=== PATIENT | female | born 1960 | race Hispanic/Latino ===

== ENCOUNTER 2017-08-08 14:36 | Observation (INO) | payer OTHER ==
[~2017-08-08] VITALS: Ht 149.9 cm; Wt 81.6 kg
[~2017-08-08 14:36] MED LIST: AMBIEN10 MG; AMLODIPINE BESYL5 MG PO; ASPIR 8181 MG PO; BP MED; CITALOPRAM HBR20 MG PO; GLIMEPIRIDE2 MG; HYDROCHLOROTHIA25 MG PO; IBUPROFEN800 MG PO; LANTUS 3ML100 UNITS/; LANTUS 3ML100 UNITS/ SQ; LEXAPRO10 MG PO; LISINOPRIL20 MG; LOVASTATIN40 MG PO; LYRICA75 MG PO; METFORMIN; METFORMIN HCL500 MG; METOCLOPRAMIDE10 MG PO; MONTELUKAST SOD10 MG PO; NEXIUM40 MG; ONGLYZA5 MG PO; QUETIAPINE FUM100 MG PO; TOPIRAMATE50 MG PO; TRAZODONE HCL100 MG PO; ULTRAM50 MG PO; Z.0.CIPROFLOXACIN500 PO; Z.0.LISINOPRIL10 MG PO; Z.0.PRAVASTATIN SOD8 PO; Z.0.TRAZODONE HCL100 PO; Z.1.METFORMIN HCL100 PO
[2017-08-08] MEDS ORDERED: ONDANSETRON HCL INJ 2 MG/ML VIAL IV STA (19:41)
--- NOTE | 2017-08-08 19:43 | Diagnostic Imaging Report ---
EXAMINATION: CHEST SINGLE (NOT PORTABLE) 08/08/2017 6:28 PM COMPARISON: None INDICATION: Foreign body stuck in throat DISCUSSION: LINES: None. LUNGS: The lungs are well inflated and clear. No pneumonia or pulmonary edema. PLEURA: No pleural effusion or pneumothorax. HEART AND MEDIASTINUM: The cardiomediastinal silhouette is unremarkable. BONES AND SOFT TISSUES: No acute osseous lesion. There are postsurgical changes at the gastroesophageal junction. IMPRESSION: Postsurgical changes of the gastroesophageal junction. No radiopaque foreign bodies are identified. Héctor Velasquez MD Signed by: Dr. Héctor Velasquez M.D. on 08/08/2017 7:39 PM
[2017-08-08] MEDS ORDERED: GLUCAGON FOR INJ 1 MG VIAL IV ONE (19:45)
[2017-08-08] MEDS ORDERED: SODIUM CHLORIDE 0.9% 1000ML 1,000 ML IV ONE (20:00)
--- NOTE | 2017-08-08 20:01 | Diagnostic Imaging Report ---
EXAMINATION: NECK SOFT TISSUE 08/08/2017 6:28 PM COMPARISON: None INDICATION: Food stuck in throat DISCUSSION: 2 views of the soft tissues of the neck (AP and lateral) See impression IMPRESSION: No radiopaque foreign body in the soft tissues of the neck. Héctor Velasquez MD Signed by: Dr. Héctor Velasquez M.D. on 08/08/2017 7:57 PM
[2017-08-08 20:47] LABS: BASOPHILS # (AUTO) 0.1 (0.0-0.1); BASOPHILS % 0.3 % (0.0-1.0); EOSINOPHILS # (AUTO) 0.3 (0.0-0.4); EOSINOPHILS % 1.6 % (0.0-6.0); HEMATOCRIT 34.9 % (34.2-44.1); HEMOGLOBIN 10.3 g/dL (12.0-16.0); LYMPHOCYTES # (AUTO) 4.1 (1.0-3.2); LYMPHOCYTES % 26.2 % (18.0-39.1); MEAN CORPUSCULAR HEMOGLOBIN 21.8 pg (28-32); MEAN CORPUSCULAR HGB CONC 29.5 g/dL (31-35); MEAN CORPUSCULAR VOLUME 73.9 fL (81-99); MONOCYTES # (AUTO) 0.8 (0.2-0.8); MONOCYTES % 4.9 % (4.4-11.3); NEUTROPHILS # (AUTO) 10.5 (2.1-6.9); NEUTROPHILS % 66.4 % (38.7-80.0); PLATELET COUNT 469 x10e3/uL (140-360); RED BLOOD COUNT 4.72 x10e6/uL (3.6-5.1); RED CELL DISTRIBUTION WIDTH 16.8 % (11.7-14.4)
[2017-08-08] MEDS ORDERED: ACETAMINOPHEN 1000 MG/100 ML IV STA (21:04)
[2017-08-08 21:05] LABS: INR 0.86; PARTIAL THROMBOPLASTIN TIME 27.9 seconds (23.8-35.5); PROTHROMBIN TIME 12.1 seconds (11.9-14.5)
--- NOTE | 2017-08-08 21:08 | Diagnostic Imaging Report ---
EXAM: CT CHEST WO DATE: 08/08/2017 7:41 PM Time stamp on exam: 2033 hours INDICATION: Foreign body in chest, previous gastric banding/ring, food bolus lodged in esophagus COMPARISON: Soft tissue neck x-ray August 08, 2017 TECHNIQUE: Multidetector CT scanning of the chest was performed. Coronal and sagittal multiplanar reformations were obtained. Routine protocol performed. IV Contrast: None CTDIvol has been reviewed. It is below the limits set by the Radiation Protocol Committee (RPC). FINDINGS: LUNGS AND AIRWAYS: The trachea and major bronchi are unremarkable. No consolidations or edema. PLEURA: No effusions or pneumothorax. HEART, MEDIASTINUM, VESSELS: The heart is within normal size limits. No abnormal pericardial effusion. No thoracic aortic aneurysm. No mediastinal mass or hematoma. UPPER ABDOMEN: Within the distal esophagus just proximal to the gastroesophageal junction there is an approximately 4 x 3 cm filling defect consistent with reported history of food lodged in esophagus. There are surgical changes around the proximal stomach consistent with reported history of gastric banding. MUSCULOSKELETAL: No acute findings. IMPRESSION: Food bolus measuring approximately 4 x 3 cm is seen in the distal esophagus, just proximal to the gastroesophageal junction. There is no free mediastinal air or fluid to suggest perforation. Signed by: Dr. Mary Braun M.D. on 08/08/2017 9:05 PM
[2017-08-08 21:19] LABS: ALANINE AMINOTRANSFERASE 24 IU/L (0-55); ALBUMIN 3.8 g/dL (3.5-5.0); ALBUMIN/GLOBULIN RATIO 0.8 (0.8-2.0); ALKALINE PHOSPHATASE 125 IU/L (40-150); ANION GAP 16.8 mmol/L (8-16); BLOOD UREA NITROGEN 12 mg/dL (7-26); BUN/CREATININE RATIO 16 (6-25); CALCIUM 10.3 mg/dL (8.4-10.2); CARBON DIOXIDE 23 mmol/L (22-29); CHLORIDE 105 mmol/L (98-107); CREATININE, SERUM 0.77 mg/dL (0.57-1.11); EST GLOMERULAR FILTRATION RATE > 60 ML/MIN (60-); GLUCOSE 99 mg/dL (74-118); POTASSIUM 3.8 mmol/L (3.5-5.1); SODIUM 141 mmol/L (136-145)
--- NOTE | 2017-08-08 21:36 | Diagnostic Imaging Report ---
History: Foreign body sensation in the esophagus, history of prior gastric banding procedure. Comparison studies: X-ray soft tissues of the neck from 08/08/2017. Technique: Axial images were obtained from the skull base to the thoracic inlet. Coronal and sagittal images reconstructed from the axial data. Intravenous contrast: None Findings: Evaluation of the neck is limited due to the absence of intravenous contrast. In spite of this limitation, Soft tissues: No abnormalities. No radiopaque foreign body. Visualized portion of the upper esophagus is unremarkable. Lymph nodes: No radiographically significant adenopathy. Vessels: Cannot evaluate. Glands (thyroid, parotid and submandibular): Normal in size and symmetric. No masses. Orbits: No abnormalities. Paranasal sinuses: Mild mucosal thickening in left maxillary sinus with an air-fluid level. Temporal bones: No abnormalities. Skull base and facial bones: Intact. Cervical spine: C3-C4: Posterior disc osteophyte complex results in mild canal stenosis. Mild left foraminal stenosis due to facet and uncovertebral arthrosis. C4-C5: Mild left foraminal stenosis due to facet and uncovertebral arthrosis. C5-C6: Moderate right foraminal stenosis due to facet and uncovertebral arthrosis. IMPRESSION: No acute abnormality, particularly no radiopaque foreign body. Signed by: Dr. Miroslava Gaston M.D. on 08/08/2017 9:32 PM
[2017-08-08] MEDS ORDERED: DEXTROSE 50% SYRINGE 50 ML IV PRN (22:30)
[2017-08-08] MEDS: LEVOFLOXACIN 500MG/D5W 100ML 100 ML IV SCH (23:14)
[2017-08-08] MEDS: SODIUM CHLORIDE 0.9% 1000ML 1,000 ML IV SCH (23:14)
[2017-08-08] MEDS: METRONIDAZOLE 500MG/NS 100ML 100 ML IV SCH ×2 (23:22→23:23)
[2017-08-08 23:40] VITALS: BP 98/46
[2017-08-08 23:48] VITALS: BP 98/46
[2017-08-09] VITALS (7 sets, daily range): BP systolic 100–148; BP diastolic 55–68
[2017-08-09] MEDS: ONDANSETRON HCL INJ 2 MG/ML VIAL IV PRN (02:41)
[2017-08-09] MEDS: HYDROMORPHONE 1MG/1ML INJ IV PRN ×2 (02:41→20:59)
[2017-08-09] MEDS ORDERED: METOCLOPRAMIDE HCL 10 MG/2ML VIAL IV STA (04:31)
[2017-08-09] MEDS ORDERED: PANTOPRAZOLE 40 MG 10ML VIAL IV STA (04:38)
[2017-08-09] MEDS ORDERED: PANTOPRAZOL 40MG/SOD CHL 0.9% 250 ML IV SCH (04:45)
[2017-08-09] MEDS ORDERED: PANTOPRAZOLE 40 MG 10ML VIAL IV ONE (05:04)
[2017-08-09] MEDS ORDERED: SODIUM CHLORIDE 0.9% 250ML 250 ML IV SCH (05:05)
[2017-08-09] MEDS: METRONIDAZOLE 500MG/NS 100ML 100 ML IV SCH ×3 (06:11→17:25)
[2017-08-09 06:27] LABS: BASOPHILS % 0.3 % (0.0-1.0); EOSINOPHILS # (AUTO) 0.2 (0.0-0.4); EOSINOPHILS % 1.5 % (0.0-6.0); HEMATOCRIT 29.2 % (34.2-44.1); HEMOGLOBIN 8.7 g/dL (12.0-16.0); LYMPHOCYTES # (AUTO) 2.1 (1.0-3.2); LYMPHOCYTES % 19.6 % (18.0-39.1); MEAN CORPUSCULAR HEMOGLOBIN 21.9 pg (28-32); MEAN CORPUSCULAR HGB CONC 29.8 g/dL (31-35); MEAN CORPUSCULAR VOLUME 73.4 fL (81-99); MONOCYTES # (AUTO) 0.6 (0.2-0.8); MONOCYTES % 5.9 % (4.4-11.3); NEUTROPHILS # (AUTO) 7.6 (2.1-6.9); NEUTROPHILS % 72.4 % (38.7-80.0); PLATELET COUNT 370 x10e3/uL (140-360); RED BLOOD COUNT 3.98 x10e6/uL (3.6-5.1); RED CELL DISTRIBUTION WIDTH 16.4 % (11.7-14.4)
[2017-08-09] MEDS: METOCLOPRAMIDE HCL 10 MG/2ML VIAL IV SCH ×3 (06:37→17:25)
[2017-08-09] MEDS: SODIUM CHLORIDE 0.9% 1000ML 1,000 ML IV SCH ×3 (06:47→22:30)
[2017-08-09 06:51] LABS: ALANINE AMINOTRANSFERASE 31 IU/L (0-55); ALBUMIN 2.9 g/dL (3.5-5.0); ALBUMIN/GLOBULIN RATIO 0.8 (0.8-2.0); ALKALINE PHOSPHATASE 113 IU/L (40-150); ANION GAP 11.1 mmol/L (8-16); BLOOD UREA NITROGEN 13 mg/dL (7-26); BUN/CREATININE RATIO 19 (6-25); CALCIUM 8.9 mg/dL (8.4-10.2); CARBON DIOXIDE 22 mmol/L (22-29); CHLORIDE 110 mmol/L (98-107); EST GLOMERULAR FILTRATION RATE > 60 ML/MIN (60-); GLUCOSE 138 mg/dL (74-118); POTASSIUM 4.1 mmol/L (3.5-5.1); SODIUM 139 mmol/L (136-145)
[2017-08-09] MEDS: INSULIN REGULAR, HUMAN 100 UNIT/1 ML 3ML VIAL SQ SCH ×4 (07:30→21:30)
[2017-08-09] MEDS: PANTOPRAZOL 40MG/SOD CHL 0.9% 50 ML IV SCH ×3 (10:15→20:15)
--- NOTE | 2017-08-09 14:21 | Operative Report ---
DATE OF PROCEDURE: August 09, 2017 REFERRING PHYSICIAN: Dr. Dixie Rajput PROCEDURE PERFORMED: Esophagogastroduodenoscopy with foreign body removal and biopsies. INDICATIONS FOR PROCEDURE: Foreign body in esophagus. MEDICATION: Patient was done under general endotracheal anesthesia. Please see anesthesiologist's note. PROCEDURE: With the patient in the left lateral decubitus position and after adequate induction of general endotracheal anesthesia, the flexible fiberoptic Olympus gastroscope was introduced into the esophagus under direct visualization without any difficulty. A large bolus of meat was noted to be impacted in the distal esophagus. Some of the meat bolus was removed partially with a polypectomy snare and rest was flushed into the stomach with a water jet. The scope was then advanced with ease into the stomach, and the mucosa overlying the antrum and the body revealed some patchy areas of erythema and low-grade to moderate edema, and biopsies were obtained and sent to stain for H. pylori. Pylorus appeared to be of normal contour and shape. It was intubated with ease. The scope was advanced all the way to the 2nd portion of the duodenum. The scope was then withdrawn slowly. Mucosa overlying the proximal aspect of the 2nd portion, as well as the duodenal bulb appeared to be within normal limits. The scope was then withdrawn back into the stomach and retroflexed, and a moderate amount of the food bolus was noted to be the fundus. It was precluding visualization of the fundus and part of the cardia, but it appears that the patient has had a Bruno fundoplication. The scope was then straightened out. The stomach was decompressed. The scope was subsequently withdrawn. Patient tolerated the procedure well. IMPRESSION 1. Bolus of meat in distal esophagus dislodged to stomach. 2. Distal esophagitis. 3. Status post Bruno fundoplication. 4. Gastritis, biopsied. Biopsies sent to stain for Helicobacter pylori. PLAN: Follow up histology. Continue PPI therapy. Patient will need an EGD with esophageal dilatation electively. Job#: [id number] RI cc:DIXIE RAJPUT MD
[2017-08-09] MEDS ORDERED: MIDAZOLAM HCL 2 MG/2 ML VIAL ONE (20:17)
[2017-08-09] MEDS ORDERED: FENTANYL CITRATE/PF 100MCG/2 ML INJ ONE (20:17)
[2017-08-09] MEDS: LEVOFLOXACIN 500MG/D5W 100ML 100 ML IV SCH (22:40)
[2017-08-10] VITALS: BP 115/56
[2017-08-10] MEDS: ONDANSETRON HCL INJ 2 MG/ML VIAL IV PRN ×2 (00:26→11:25)
[2017-08-10] MEDS: METRONIDAZOLE 500MG/NS 100ML 100 ML IV SCH ×3 (00:38→12:00)
[2017-08-10] MEDS: METOCLOPRAMIDE HCL 10 MG/2ML VIAL IV SCH ×3 (00:38→12:00)
[2017-08-10] MEDS: PANTOPRAZOL 40MG/SOD CHL 0.9% 50 ML IV SCH ×4 (01:15→16:15)
[2017-08-10] MEDS: SODIUM CHLORIDE 0.9% 1000ML 1,000 ML IV SCH ×2 (05:24→14:30)
[2017-08-10] MEDS: INSULIN REGULAR, HUMAN 100 UNIT/1 ML 3ML VIAL SQ SCH ×3 (07:30→16:23)
[2017-08-10 08:08] VITALS: BP 140/67
[2017-08-10] MEDS: HYDROMORPHONE 1MG/1ML INJ IV PRN (11:25)
[2017-08-10 11:52] VITALS: BP 122/63
[2017-08-10 16:00] VITALS: BP 118/63
[2017-08-10] MEDS ORDERED: DEXAMETHASONE SOD PHOS INJ 4 MG/ML VIAL IV ONE (18:47)
[2017-08-10] MEDS ORDERED: ROCURONIUM BROMIDE 10 MG/ML 5ML VIAL IV ONE (18:47)
[2017-08-10] MEDS ORDERED: LIDOCAINE HCL 2% LOCAL INJ 5 ML SDV VIAL INJ ONE (18:47)
[2017-08-10] MEDS ORDERED: PROPOFOL IV EMULSION 10 MG/ML 20 ML VIAL IV ONE (18:47)
[2017-08-10] MEDS ORDERED: SEVOFLURANE INHAL SOLN 250 ML PEN BTL INH ONE (18:47)
[2017-08-10] MEDS ORDERED: SUCCINYLCHOLINE 200 MG/10 ML SYR IV ONE (18:47)
[2017-08-10] MEDS ORDERED: GLYCOPYRROLATE INJ 1MG/ 5 ML SYR IV ONE (18:47)
[2017-08-10] MEDS ORDERED: ONDANSETRON HCL INJ 2 MG/ML VIAL IV ONE (18:47)
== END 2017-08-10 18:48 | disposition home or self-care (01) ==
LOC: ER 14:36 → ERHOLD 22:41 → EDBEDREQ 22:43 → MED/SURG2 08-09 01:22
DX: T18.128A Food in esophagus causing other injury, initial encounter (principal); E11.9 Type 2 diabetes mellitus without complications; I10 Essential (primary) hypertension; K21.0 Gastro-esophageal reflux disease with esophagitis; K29.70 Gastritis, unspecified, without bleeding; K29.50 Unspecified chronic gastritis without bleeding; B96.81 Helicobacter pylori [H. pylori] as the cause of diseases classified elsewhere
CPT/HCPCS: 36415 ×3; 43239; 43247; 70360; 70490; 71010; 71250; 80053 ×2; 82948 ×2; 85025 ×2; 85610; 85730; 88305; 88312; 88342; 99284; G0378 ×3; J1100; J1170 ×2; J1610; J1956 ×2; J2001; J2250; J2405 ×3; J2765 ×2; J7030 ×2; J7050

== ENCOUNTER 2017-12-02 13:33 | Emergency (ER) | payer OTHER ==
[~2017-12-02] VITALS: Ht 149.9 cm; Wt 83.9 kg
--- OUTSIDE RECORDS SUMMARY | 2017-12-02 13:36 | XMS REPORT | Clinical Summary ---
Author Author [facility] Organization [facility] Address Unknown Phone Unavailable Care Team Providers Care Person Investigator Name Role Phone PCP Unavailable Allergies Active Allergy Reactions Severity Noted Date Comments Cyclobenzaprine 03/10/2017 Iodine 03/10/2017 Penicillin G 03/10/2017 Tetracyclic 03/10/2017 Antidepressants Current Medications Not on file Active Problems Not on file Encounters Date Type Specialty Care Team Description 03/10/2017 Emergency Emergency Medicine - 03/11/2017 after 12/01/2016 Social History Tobacco Use Types Packs/Day Years Used Date Never Assessed Sex Assigned at Date Recorded Not on file Last Filed Vital Signs Vital Sign Reading Time Taken Blood Pressure 196/92 03/10/2017 10:23 PM CDT Pulse 87 03/10/2017 10:23 PM CDT Temperature 36.6 C (97.8 F) 03/10/2017 10:23 PM CDT Respiratory Rate 16 03/10/2017 10:23 PM CDT Oxygen Saturation 98% 03/10/2017 10:23 PM CDT Inhaled Oxygen - - Concentration Weight 88 kg (194 lb) 03/10/2017 10:24 PM CDT Height 149.9 cm (4' 11") 03/10/2017 10:24 PM CDT Body Mass Index 39.18 03/10/2017 10:24 PM CDT Plan of Treatment Not on file Results Not on fileafter 12/01/2016
--- OUTSIDE RECORDS SUMMARY | 2017-12-02 13:36 | XMS REPORT ---
Author Author [facility] Address Unknown Phone Unavailable Care Team Providers Care Warning Analyst Name Role Phone CRYSTAL RAJPUT Unavailable Unavailable Problems This patient has no known problems. Allergies, Adverse Reactions, Alerts This patient has no known allergies or adverse reactions. Medications This patient has no known medications. Results Test Description Test Time Test Comments Text Results Atomic Results Result Comments CT SOFT TISSUE NECK [place] [address] Patient Name: ROSITA MCGHEE MR #: [id number] : 1960 Age/Sex: 56/F Req #: [id number] [facility] Physician: CRYSTAL RAJPUT MD Ordered by: ANTONIO SHERMAN MD Report #: [id number] Location: [facility]/SURG Room/Bed: [facility] Procedure: [id number] CT/CT SOFT TISSUE NECK WO Exam Date: 08/08/17 Exam Time: 2024 REPORT STATUS: Signed History: Foreign body sensation in the esophagus, history of prior gastric banding procedure. Comparison studies: X-ray soft tissues of the neck from 08/08/2017. Technique: Axial images were obtained from the skull base to the thoracic inlet. Coronal and sagittal images reconstructed from the axial data. Intravenous contrast: None Findings : Evaluation of the neck is limited due to the absence of intravenous contrast. In spite of this limitation, Soft tissues: No abnormalities. No radiopaque foreign body. Visualized portion of the upper esophagus is unremarkable. Lymph nodes: No radiographically significant adenopathy. Vessels: Cannot evaluate. Glands (thyroid, parotid and submandibular): Normal in size and symmetric. No masses. Orbits: No abnormalities. Paranasal sinuses: Mild mucosal thickening in left maxillary sinus with an air-fluid level. Temporal bones: No abnormalities. Skull base and facial bones: Intact. Cervical spine: C3-C4: Posterior disc osteophyte complex results in mild canal stenosis. Mild left foraminal stenosis due to facet and uncovertebral arthrosis. C4-C5: Mild left foraminal stenosis due to facet and uncovertebral arthrosis. C5-C6: Moderate right foraminal stenosis due to facet and uncovertebral arthrosis. IMPRESSION: No acute abnormality, particularly no radiopaque foreign body. Signed by: Dr. Miroslava Gaston M.D. on 08/08/2017 9:32 PM Dictated By: MIROSLAVA GASTON MD 31 Transcribed By: CAROLYN on 08/08/172131 COPY TO: ANTONIO SHERMAN MD CT CHEST WO [place] [address] Patient Name: ROSITA MCGHEE MR #: [id number] : 1960 Age/Sex: 56/F Req #: [id number] Adm Physician: CRYSTAL RAJPUT MD Ordered by: ANTONIO SHERMAN MD Report #: [id number] Location: MED/SURG2 Room/Bed: [facility] Procedure: [id number] CT/CT CHEST WO Exam Date: 08/08/17 Exam Time: 2024 REPORT STATUS: Signed EXAM: CT CHEST WO DATE: 08/08/2017 7:41 PM Time stamp on exam: 2033 hours INDICATION: Foreign body in chest, previous gastric banding/ring, food bolus lodged in esophagus COMPARISON: Soft tissue neck x-ray August 08, 2017 TECHNIQUE: Multidetector CT scanning of the chest was performed. Coronal and sagittal multiplanar reformations were obtained. Routine protocol performed. IV Contrast: None CTDIvol has been reviewed. It is below the limits set by the Radiation Protocol Committee (RPC). FINDINGS: LUNGS AND AIRWAYS: The trachea and major bronchi are unremarkable. No consolidations or edema. PLEURA: No effusions or pneumothorax. HEART , MEDIASTINUM, VESSELS: The heart is within normal size limits. No abnormal pericardial effusion. No thoracic aortic aneurysm. No mediastinal mass or hematoma. UPPER ABDOMEN: Within the distal esophagus just proximal to the gastroesophageal junction there is an approximately 4 x 3 cm filling defect consistent with reported history of food lodged in esophagus. There are surgical changes around the proximal stomach consistent with reported history of gastric banding. MUSCULOSKELETAL: No acute findings. IMPRESSION: Food bolus measuring approximately 4 x 3 cm is seen in the distal esophagus, just proximal to the gastroesophageal junction. There is no free mediastinal air or fluid to suggest perforation. Signed by: Dr. Russ Braun M.D. on 08/08/2017 9:05 PM Dictated By: RUSS BRAUN MD 04 Transcribed By: CAROLYN on 08/08/172104 COPY TO: ANTONIO SHERMAN MD CHEST SINGLE (NOT PORTABLE) [place] [address] Patient Name: ROSITA MCGHEE MR #: [id number] : 1960 Age/Sex: 56/F Req #: [id number] Adm Physician: CRYSTAL RAJPUT MD Ordered by: FELICITAS CUTLER MD Report #: [id number] Location: MED/SURG2 Room/Bed: [facility] Procedure: [id number] DX/CHEST SINGLE (NOT PORTABLE) Exam Date: 08/08/17 Exam Time: 1845 REPORT STATUS: Signed EXAMINATION: CHEST SINGLE (NOT PORTABLE) 08/08/2017 6:28 PM COMPARISON: None INDICATION: Foreign body stuck in throat DISCUSSION: LINES: None. LUNGS: The lungs are well inflated and clear. No pneumonia or pulmonary edema. PLEURA: No pleural effusion or pneumothorax. HEART AND MEDIASTINUM: The cardiomediastinal silhouette is unremarkable. BONES AND SOFT TISSUES: No acute osseous lesion. There are postsurgical changes at the gastroesophageal junction. IMPRESSION: Postsurgical changes of the gastroesophageal junction. No radiopaque foreign bodies are identified. Massimo Velasquez MD Signed by: Dr. Massimo Velasquez M.D. on 08/08/2017 7:39 PM Dictated By: MASSIMO VELASQUEZ MD 38 Transcribed By: CAROLYN on 08/08/171938 COPY TO: FELICITAS CUTLER MD NECK SOFT TISSUE [place] [address] Patient Name: ROSITA MCGHEE MR #: [id number] : 1960 Age/Sex: 56/F Req #: [id number] [facility] Physician: CRYSTAL RAJPUT MD Ordered by: FELICITAS CUTLER MD Report #: [id number] Location: MED/SURG2 Room/Bed: [facility] Procedure: [id number] DX/NECK SOFT TISSUE Exam Date: Exam Time: 184 REPORT STATUS: Signed EXAMINATION: NECK SOFT TISSUE 08/08/2017 6:28 PM COMPARISON: None INDICATION: Food stuck in throat DISCUSSION: 2 views of the soft tissues of the neck (AP and lateral) See impression IMPRESSION: No radiopaque foreign body in the soft tissues of the neck. Massimo Velasquez MD Signed by: Dr. Massimo Velasquez M.D. on 08/08/2017 7:57 PM Dictated By: MASSIMO VELASQUEZ MD 56 Transcribed By: CAROLYN on 08/08/171956 COPY TO: FELICITAS CUTLER MD
[2017-12-02] MEDS ORDERED: KETOROLAC TROMETHAMINE 30 MG/ML VIAL IV ONE (14:05)
[2017-12-02] MEDS ORDERED: SODIUM CHLORIDE 0.9% 1000ML 1,000 ML IV STA ×2 (14:05→17:16)
[2017-12-02] MEDS ORDERED: ASPIRIN 81 MG CHEW TAB PO ONE (14:15)
[2017-12-02 14:57] LABS: BASOPHILS % 0.3 % (0.0-1.0); EOSINOPHILS # (AUTO) 0.2 (0.0-0.4); EOSINOPHILS % 1.8 % (0.0-6.0); HEMATOCRIT 27.7 % (34.2-44.1); HEMOGLOBIN 8.6 g/dL (12.0-16.0); LYMPHOCYTES # (AUTO) 2.7 (1.0-3.2); LYMPHOCYTES % 25.6 % (18.0-39.1); MEAN CORPUSCULAR HEMOGLOBIN 24.9 pg (28-32); MEAN CORPUSCULAR VOLUME 80.3 fL (81-99); MONOCYTES # (AUTO) 0.6 (0.2-0.8); MONOCYTES % 5.3 % (4.4-11.3); NEUTROPHILS # (AUTO) 7.1 (2.1-6.9); NEUTROPHILS % 66.6 % (38.7-80.0); PLATELET COUNT 408 x10e3/uL (140-360); RED BLOOD COUNT 3.45 x10e6/uL (3.6-5.1); RED CELL DISTRIBUTION WIDTH 15.7 % (11.7-14.4)
[2017-12-02 15:07] LABS: INR 1.03; PROTHROMBIN TIME 12.7 seconds (11.9-14.5)
[2017-12-02 15:08] LABS: PARTIAL THROMBOPLASTIN TIME 32.7 seconds (23.8-35.5)
[2017-12-02 15:14] LABS: BILIRUBIN,URINE NEGATIVE (NEGATIVE); CLARITY,URINE CLEAR (CLEAR); COLOR,URINE YELLOW (YELLOW); KETONES,URINE NEGATIVE (NEGATIVE); LEUKOCYTE ESTERASE ,URINE NEGATIVE (NEGATIVE); NITRITE,URINE NEGATIVE (NEGATIVE); PROTEIN,URINE DIPSTICK NEGATIVE (NEGATIVE); URINE UROBILINOGEN 0.2 mg/dL (0.2 - 1)
[2017-12-02 15:15] LABS: ALANINE AMINOTRANSFERASE 19 IU/L (0-55); ALBUMIN 3.4 g/dL (3.5-5.0); ALBUMIN/GLOBULIN RATIO 0.9 (0.8-2.0); ALKALINE PHOSPHATASE 111 IU/L (40-150); ANION GAP 10.9 mmol/L (8-16); BLOOD UREA NITROGEN 20 mg/dL (7-26); BUN/CREATININE RATIO 22 (6-25); CALCIUM 9.4 mg/dL (8.4-10.2); CARBON DIOXIDE 24 mmol/L (22-29); CHLORIDE 109 mmol/L (98-107); CREATINE KINASE 64 IU/L (29-168); EST GLOMERULAR FILTRATION RATE > 60 ML/MIN (60-); GLUCOSE 121 mg/dL (74-118); POTASSIUM 3.9 mmol/L (3.5-5.1); SODIUM 140 mmol/L (136-145)
[2017-12-02 15:28] LABS: BACTERIA,URINE FEW /HPF; EPITHELIAL CELLS,URINE MODERATE /LPF; WBC,URINE (MAN) 0-5 /HPF (0-5)
[2017-12-02 15:37] LABS: THYROID STIMULATING HORMONE 0.383 uIU/mL (0.350-4.940)
--- NOTE | 2017-12-02 15:41 | Diagnostic Imaging Report ---
PROCEDURE: A single AP view of the chest. COMPARISON: Chest CT dated 08/08/17 INDICATIONS: CHEST PAIN, PRESSURE FINDINGS: Lines/tubes: None. Lungs: Limited by low lung volumes and body habitus. There is no evidence of pneumonia or pulmonary edema. Pleura: There is no pleural effusion or pneumothorax. Heart and mediastinum: Prominent cardiomediastinal silhouette on this AP view. Bones: No acute bony abnormality. IMPRESSION: 1. No acute cardiopulmonary disease. Dictated by: Phani Greenberg M.D. on 12/02/2017 at 15:41 Electronically approved by: Phani Greenberg M.D. on 12/02/2017 at 15:41
[2017-12-02] MEDS ORDERED: DIPHENHYDRAMINE HCL INJ 50 MG/ML VIAL IV ONE (17:30)
[2017-12-02] MEDS ORDERED: METHYLPREDNISOLONE SOD SUCC 125 MG/2ML VIAL IV ONE (17:30)
[2017-12-02] MEDS ORDERED: SODIUM CHLORIDE 0.9% 50ML 50 ML ONE (18:28)
[2017-12-02] MEDS ORDERED: IOPAMIDOL 370 MG/ML 200 ML INFUS..BTL INJ ONE (18:29)
--- NOTE | 2017-12-02 19:11 | Diagnostic Imaging Report ---
PROCEDURE: CT scan of the chest WITH intravenous contrast, using standard protocol. TECHNIQUE: The chest was scanned utilizing a multidetector helical scanner from the lung apex through the level of the adrenal glands after the IV administration of 100cc of Isovue 370. Coronal and sagittal multiplanar reformations were obtained. DLP: 468.30 mGy-cm COMPARISON: Chest CT dated 08/08/17 INDICATIONS: CHEST PAIN FINDINGS: Lines/tubes: None. Lungs and Airways: Tiny nonobstructive filling defect within a right upper lobe subsegmental artery (series 2, image 27) is less likely to present embolism. No other filling defects identified to the segmental level. The lungs and airways are normal with no focal abnormality demonstrated. Pleura: The pleural spaces are clear. Heart and mediastinum: The thyroid gland is normal. No significant mediastinal, hilar or axillary lymphadenopathy is seen. The heart and pericardium are within normal limits. Soft tissues: Normal. Abdomen: Unremarkable. Evidence of prior gastric surgery or banding. Bones: The visualized bony thorax is within normal limits. IMPRESSION: Tiny nonobstructive filling defect within a right upper lobe subsegmental artery, which is less likely to represent embolism. No other filling defects identified to the segmental level. Recommend attention on followup examination or if there is high clinical concern for pulmonary embolism VQ scan can be obtained to further evaluate. Dr. Guerra was notified at 7:10 PM on 12/02/2017 Dictated by: Phani Greenberg M.D. on 12/02/2017 at 19:11 Electronically approved by: Phani Greenberg M.D. on 12/02/2017 at 19:11
== END 2017-12-02 19:33 | disposition home or self-care (01) ==
LOC: ER 13:33
DX: R07.89 Other chest pain (principal); I10 Essential (primary) hypertension; E11.9 Type 2 diabetes mellitus without complications; J45.909 Unspecified asthma, uncomplicated; M06.9 Rheumatoid arthritis, unspecified
CPT/HCPCS: 36415; 71045; 71260; 80053; 81001; 82550; 82553; 84443; 84484; 85025; 85379; 85610; 85730; 93005; 99284; J1200; J1885; J2930; J7030; Q9967

== ENCOUNTER 2018-02-01 21:57 | Emergency (ER) | payer OTHER ==
[~2018-02-01] VITALS: Ht 149.9 cm; Wt 82.6 kg
[2018-02-01] MEDS ORDERED: KETOROLAC TROMETHAMINE 30 MG/ML VIAL IV STA (22:12)
[2018-02-01] MEDS ORDERED: ONDANSETRON HCL INJ 2 MG/ML VIAL IV STA (22:12)
[2018-02-01] MEDS ORDERED: PANTOPRAZOLE 40 MG 10ML VIAL IV STA (22:12)
[2018-02-01 22:36] LABS: BASOPHILS % 0.2 % (0.0-1.0); EOSINOPHILS # (AUTO) 0.3 (0.0-0.4); EOSINOPHILS % 1.8 % (0.0-6.0); HEMATOCRIT 34.6 % (34.2-44.1); HEMOGLOBIN 10.6 g/dL (12.0-16.0); LYMPHOCYTES # (AUTO) 2.8 (1.0-3.2); LYMPHOCYTES % 20.8 % (18.0-39.1); MEAN CORPUSCULAR HGB CONC 30.6 g/dL (31-35); MEAN CORPUSCULAR VOLUME 78.3 fL (81-99); MONOCYTES # (AUTO) 0.7 (0.2-0.8); MONOCYTES % 4.9 % (4.4-11.3); NEUTROPHILS # (AUTO) 9.7 (2.1-6.9); PLATELET COUNT 332 x10e3/uL (140-360); RED BLOOD COUNT 4.42 x10e6/uL (3.6-5.1)
[2018-02-01 22:40] LABS: INR 0.97; PROTHROMBIN TIME 12.1 seconds (11.9-14.5)
[2018-02-01 22:41] LABS: PARTIAL THROMBOPLASTIN TIME 31.4 seconds (23.8-35.5)
[2018-02-01 22:44] LABS: BILIRUBIN,URINE NEGATIVE (NEGATIVE); CLARITY,URINE CLEAR (CLEAR); COLOR,URINE YELLOW (YELLOW); KETONES,URINE TRACE (NEGATIVE); LEUKOCYTE ESTERASE ,URINE NEGATIVE (NEGATIVE); NITRITE,URINE NEGATIVE (NEGATIVE); PROTEIN,URINE DIPSTICK NEGATIVE (NEGATIVE); URINE UROBILINOGEN 0.2 mg/dL (0.2 - 1)
[2018-02-01] MEDS ORDERED: SODIUM CHLORIDE 0.9% 500ML 500 ML IV ONE (22:45)
[2018-02-01 22:53] LABS: BACTERIA,URINE MODERATE /HPF; EPITHELIAL CELLS,URINE MODERATE /LPF; WBC,URINE (MAN) 0-5 /HPF (0-5)
[2018-02-01 22:57] LABS: ALANINE AMINOTRANSFERASE 20 IU/L (0-55); ALBUMIN 3.8 g/dL (3.5-5.0); ALKALINE PHOSPHATASE 141 IU/L (40-150); AMYLASE 189 U/L (25-125); ANION GAP 15.3 mmol/L (8-16); BLOOD UREA NITROGEN 25 mg/dL (7-26); BUN/CREATININE RATIO 29 (6-25); CALCIUM 10.2 mg/dL (8.4-10.2); CARBON DIOXIDE 20 mmol/L (22-29); CHLORIDE 110 mmol/L (98-107); CREATINE KINASE 91 IU/L (29-168); CREATININE, SERUM 0.85 mg/dL (0.57-1.11); EST GLOMERULAR FILTRATION RATE > 60 ML/MIN (60-); GLUCOSE 148 mg/dL (74-118); LIPASE 117 U/L (8-78); MAGNESIUM 1.5 MG/DL (1.3-2.1); POTASSIUM 4.3 mmol/L (3.5-5.1); SODIUM 141 mmol/L (136-145)
--- NOTE | 2018-02-01 23:11 | Diagnostic Imaging Report ---
EXAM: CHEST SINGLE (PORTABLE), AP 1 view INDICATION: Abdominal pain COMPARISON: CT of the abdomen and pelvis February 01, 2018 FINDINGS: LINES/TUBES: None LUNGS: No consolidations or edema. PLEURA: No effusions or pneumothorax. HEART AND MEDIASTINUM: Normal size and contour. BONES AND SOFT TISSUES: No acute findings. Surgical clips left upper quadrant of the abdomen. IMPRESSION: No acute thoracic abnormality. Signed by: Dr. Mary Braun M.D. on 02/01/2018 11:08 PM
--- NOTE | 2018-02-01 23:11 | Diagnostic Imaging Report ---
EXAM: CT ABDOMEN AND PELVIS without IV CONTRAST INDICATION: Abdominal pain, nausea, history of kidney stones, bilateral flank pain COMPARISON: CT of the abdomen and pelvis December 12, 2016 TECHNIQUE: The abdomen and pelvis were scanned using a multidetector helical scanner. Coronal and sagittal reformations were obtained. Renal stone protocol performed. IV Contrast: None Oral Contrast: None CTDIvol has been reviewed. It is below the limits set by the Radiation Protocol Committee (RPC). FINDINGS: LOWER THORAX: No consolidations LIVER: No masses BILIARY: Normal gallbladder. No ductal dilation. SPLEEN: No masses PANCREAS: No masses ADRENALS: No nodules RIGHT KIDNEY: No nephroureterolithiasis or hydronephrosis. Stable mild perinephric fat stranding. LEFT KIDNEY: No nephroureterolithiasis or hydronephrosis. Stable mild perinephric fat stranding. GI TRACT: No wall thickening or obstruction. Nonspecific debris in the stomach. Mild sigmoid colon diverticulosis without CT findings of diverticulitis. VESSELS: Unremarkable PERITONEUM/RETROPERITONEUM: No free air or fluid. Surgical clips left upper abdomen. LYMPH NODES: No lymphadenopathy REPRODUCTIVE ORGANS: The uterus and ovaries are not visualized. BLADDER: Normal SOFT TISSUES: Stable subcentimeter nodules along the left anterior chest wall, likely intramammary lymph nodes. BONES: No suspicious bone lesions. IMPRESSION: No acute findings. Signed by: Dr. Mary Braun M.D. on 02/01/2018 11:07 PM
== END 2018-02-02 00:33 | disposition home or self-care (01) ==
LOC: ER 21:57
DX: R10.12 Left upper quadrant pain (principal); R19.7 Diarrhea, unspecified; I10 Essential (primary) hypertension; E78.5 Hyperlipidemia, unspecified; K76.0 Fatty (change of) liver, not elsewhere classified; E11.9 Type 2 diabetes mellitus without complications; Z79.4 Long term (current) use of insulin; Z79.82 Long term (current) use of aspirin; Z88.1 Allergy status to other antibiotic agents; Z88.5 Allergy status to narcotic agent; Z88.0 Allergy status to penicillin; Z88.8 Allergy status to other drugs, medicaments and biological substances
CPT/HCPCS: 36415; 71045; 74176; 80053; 81001; 82150; 82550; 82553; 83690; 83735; 84484; 85025; 85610; 85730; 99284; J1885; J2405; J7040

== ENCOUNTER 2018-03-26 11:16 | Emergency (ER) | payer OTHER ==
[~2018-03-26] VITALS: Ht 149.9 cm; Wt 82.6 kg
[2018-03-26 11:47] LABS: BILIRUBIN,URINE NEGATIVE (NEGATIVE); CLARITY,URINE CLEAR (CLEAR); COLOR,URINE YELLOW (YELLOW); KETONES,URINE NEGATIVE (NEGATIVE); LEUKOCYTE ESTERASE ,URINE NEGATIVE (NEGATIVE); NITRITE,URINE NEGATIVE (NEGATIVE); PROTEIN,URINE DIPSTICK NEGATIVE (NEGATIVE); URINE UROBILINOGEN 0.2 mg/dL (0.2 - 1)
[2018-03-26 11:50] LABS: BACTERIA,URINE FEW /HPF; EPITHELIAL CELLS,URINE FEW /LPF; RBC,URINE 0-5 /HPF (0-5); WBC,URINE (MAN) 0-5 /HPF (0-5)
[2018-03-26] MEDS ORDERED: KETOROLAC TROMETHAMINE 30 MG/ML VIAL IV STA (12:46)
[2018-03-26 13:24] LABS: BASOPHILS % 0.3 % (0.0-1.0); EOSINOPHILS # (AUTO) 0.2 (0.0-0.4); EOSINOPHILS % 1.9 % (0.0-6.0); HEMATOCRIT 35.1 % (34.2-44.1); HEMOGLOBIN 10.9 g/dL (12.0-16.0); LYMPHOCYTES # (AUTO) 2.3 (1.0-3.2); LYMPHOCYTES % 19.3 % (18.0-39.1); MEAN CORPUSCULAR HEMOGLOBIN 23.6 pg (28-32); MEAN CORPUSCULAR HGB CONC 31.1 g/dL (31-35); MONOCYTES # (AUTO) 0.6 (0.2-0.8); MONOCYTES % 4.9 % (4.4-11.3); NEUTROPHILS # (AUTO) 8.8 (2.1-6.9); NEUTROPHILS % 73.2 % (38.7-80.0); PLATELET COUNT 328 x10e3/uL (140-360); RED BLOOD COUNT 4.62 x10e6/uL (3.6-5.1); RED CELL DISTRIBUTION WIDTH 16.8 % (11.7-14.4)
[2018-03-26 13:38] LABS: ANION GAP 13.2 mmol/L (8-16); BLOOD UREA NITROGEN 15 mg/dL (7-26); BUN/CREATININE RATIO 22 (6-25); CALCIUM 9.8 mg/dL (8.4-10.2); CARBON DIOXIDE 24 mmol/L (22-29); CHLORIDE 99 mmol/L (98-107); CREATININE, SERUM 0.69 mg/dL (0.57-1.11); EST GLOMERULAR FILTRATION RATE > 60 ML/MIN (60-); GLUCOSE 140 mg/dL (74-118); POTASSIUM 4.2 mmol/L (3.5-5.1); SODIUM 132 mmol/L (136-145)
--- NOTE | 2018-03-26 13:44 | Diagnostic Imaging Report ---
CT Abdomen and Pelvis without contrast INDICATION: Right flank pain TECHNIQUE: Thin collimation axial images obtained from the diaphragm to the level of the pubic symphysis without nonionic intravenous contrast. RADIATION DOSE: Total DLP: 667.1 mGy*cm Estimated effective dose: (DLP x 0.015 x size factor) mSv CTDIvol has been reviewed. It is below the limits set by the Radiation Protocol Committee (RPC). COMPARISON: CT abdomen/pelvis 02/01/2018. ABDOMEN FINDINGS: Lung Bases: Clear. The visualized portion of the mediastinum is normal. Liver: Decreased attenuation. No evidence of mass. Gallbladder: Absent. No ductal dilatation. Pancreas: Normal attenuation without mass. Spleen: Normal size without mass. Adrenal Glands: No evidence for mass. Kidneys: Right: No renal calculus. No cortical mass or hydronephrosis. Mild perinephric inflammation is stable. Left: No renal calculus. No cortical mass or hydronephrosis. Mild perinephric inflammation is stable. Lymph Nodes: No enlarged abdominal or periaortic lymph nodes. Aorta: Normal in diameter. PELVIS FINDINGS: Bowel: Stomach: Postoperative changes of the stomach are stable. There is fluid and fluid in the distal stomach. Small Bowel: Normal in caliber with normal wall thickness. Large Bowel: Scattered diverticula in the left colon without associated inflammation. No large bowel dilatation. Appendix: Not visualized and may be absent or collapsed. Bladder: Well distended and normal. Ureters: No ureteral dilatation or calculus. The uterus is absent. No adnexal mass. No free fluid or fluid collection. Left upper quadrant surgical clips are stable. Bones: Mild degenerative changes of the spine. No compression deformities. Bone island in the right issue tuberosity is stable. No destructive lesions. Soft tissues: Calcification or surgical clip in the anterior abdominal wall is stable. IMPRESSION: 1. No evidence of renal calculus or obstructive uropathy. 2. No evidence for bowel obstruction or inflammation. 3. Stable postoperative changes of the upper abdomen. 4. Hepatic steatosis. Signed by: Dr. Alyssa Cuadra MD on 03/26/2018 1:41 PM
[2018-03-26] MEDS ORDERED: TRAMADOL HCL 50 MG TAB PO ONE (15:00)
[2018-03-26] MEDS ORDERED: DIAZEPAM 5 MG TAB PO ONE (15:00)
[2018-03-26] MEDS ORDERED: KETOROLAC TROMETHAMINE 30 MG/ML VIAL IV ONE (15:00)
[2018-03-26 15:41] VITALS: BP 129/82
== END 2018-03-26 15:53 | disposition home or self-care (01) ==
LOC: ER 11:16
DX: M54.41 Lumbago with sciatica, right side (principal); E11.9 Type 2 diabetes mellitus without complications; Z87.442 Personal history of urinary calculi
CPT/HCPCS: 36415; 74176; 80048; 81001; 85025; 99284; J1885

== ENCOUNTER 2018-05-15 06:31 | Emergency (ER) | payer OTHER ==
[~2018-05-15] VITALS: Ht 149.9 cm; Wt 82.6 kg
--- NOTE | 2018-05-15 07:24 | Diagnostic Imaging Report ---
PROCEDURE:X-RAY LEFT HAND, THREE OR MORE VIEWS COMPARISON:None. INDICATIONS:s/p fall FINDINGS: No acute, displaced fracture or dislocation. Joint spaces are well-maintained. Soft tissues are unremarkable. CONCLUSION: No acute osseous abnormalities. Dictated by: Gabriel Butler M.D. on 05/15/2018 at 7:32 Electronically approved by: Gabriel Butler M.D. on 05/15/2018 at 7:32
--- NOTE | 2018-05-15 07:26 | Diagnostic Imaging Report ---
PROCEDURE:X-RAY LEFT SHOULDER, COMPLETE COMPARISON:None. INDICATIONS:s/p fall FINDINGS: No acute, displaced fracture or dislocation. The humeral head projects appropriately adjacent to the glenoid. Small spur along the lateral margin of the acromion. Joint spaces are otherwise well-maintained. No gross soft tissue abnormalities. CONCLUSION: No acute osseous abnormality. Dictated by: Gabriel Butler M.D. on 05/15/2018 at 7:33 Electronically approved by: Gabriel Butler M.D. on 05/15/2018 at 7:33
--- NOTE | 2018-05-15 07:27 | Diagnostic Imaging Report ---
PROCEDURE:X-RAY RIGHT SHOULDER, COMPLETE COMPARISON:None. INDICATIONS:s/p fall FINDINGS: No acute, displaced fracture or dislocation. The humeral head projects appropriately adjacent to the glenoid. Acromioclavicular and glenohumeral joint spaces are well-maintained. Soft tissues are unremarkable. CONCLUSION: No acute osseous abnormality Dictated by: Gabriel Butler M.D. on 05/15/2018 at 7:34 Electronically approved by: Gabriel Butler M.D. on 05/15/2018 at 7:34
--- NOTE | 2018-05-15 07:29 | Diagnostic Imaging Report ---
PROCEDURE:HIP LEFT 2-3 VW (+/- PELVIS) COMPARISON:None. INDICATIONS:S/P FALL FINDINGS: No acute, displaced fracture or dislocation. The femoral head projects appropriately over the acetabulum. The joint space is well maintained. Soft tissues are unremarkable. Multiple pelvic phleboliths. CONCLUSION: no acute osseous abnormality. Dictated by: Gabrile Butler M.D. on 05/15/2018 at 7:36 Electronically approved by: Gabriel Butler M.D. on 05/15/2018 at 7:36
--- NOTE | 2018-05-15 07:35 | Diagnostic Imaging Report ---
PROCEDURE:X-RAY LEFT ELBOW, COMPLETE COMPARISON:None. INDICATIONS:FALL, ELBOW PAIN FINDINGS: No acute, displaced fracture or dislocation. Lateral radiograph shows no evidence of joint effusion. Soft tissues are unremarkable. CONCLUSION: No acute osseous abnormality. Dictated by: Gabriel Butler M.D. on 05/15/2018 at 7:43 Electronically approved by: Gabriel Butler M.D. on 05/15/2018 at 7:43
[2018-05-15] MEDS ORDERED: DIAZEPAM 5 MG TAB PO STA (08:11)
[2018-05-15] MEDS ORDERED: HYDROCODONE/APAP 10MG-325MG TAB PO ONE (09:30)
[2018-05-15 11:04] VITALS: BP 125/70
== END 2018-05-15 10:40 | disposition home or self-care (01) ==
LOC: ER 06:31
DX: S53.432A Radial collateral ligament sprain of left elbow, initial encounter (principal); S43.52XA Sprain of left acromioclavicular joint, initial encounter; S73.112A Iliofemoral ligament sprain of left hip, initial encounter; W01.0XXA Fall on same level from slipping, tripping and stumbling without subsequent striking against object, initial encounter; Y93.01 Activity, walking, marching and hiking; Y92.008 Other place in unspecified non-institutional (private) residence as the place of occurrence of the external cause; I10 Essential (primary) hypertension; E11.9 Type 2 diabetes mellitus without complications
CPT/HCPCS: 99284

== ENCOUNTER 2018-09-12 08:06 | Emergency (ER) | payer OTHER ==
[~2018-09-12] VITALS: Ht 149.9 cm; Wt 82.6 kg
--- OUTSIDE RECORDS SUMMARY | 2018-09-12 08:09 | XMS REPORT | Clinical Summary ---
Author Author [facility] Organization [facility] Address Unknown Phone Unavailable Care Team Providers Care Filler Room Attendant Name Role Phone PCP Unavailable Allergies Comments Active Allergy Reactions Severity Noted Date Cyclobenzaprine 03/10/2017 Iodine 03/10/2017 Penicillin G 03/10/2017 Tetracyclic 03/10/2017 Antidepressants Medications Not on file Active Problems Not on file Social History Date Tobacco Use Types Packs/Day Years Used Never Assessed Sex Assigned at Date Recorded Not on file Industry Job Start Date Occupation Not on file Not on file Not on file Travel End Travel History Travel Start No recent travel history available. Last Filed Vital Signs Not on file Plan of Treatment Not on file Results Not on fileafter 09/11/2017
[2018-09-12 09:27] LABS: BILIRUBIN,URINE NEGATIVE (NEGATIVE); CLARITY,URINE CLEAR (CLEAR); COLOR,URINE YELLOW (YELLOW); KETONES,URINE 1+ (NEGATIVE); LEUKOCYTE ESTERASE ,URINE NEGATIVE (NEGATIVE); NITRITE,URINE NEGATIVE (NEGATIVE); PROTEIN,URINE DIPSTICK NEGATIVE (NEGATIVE); URINE UROBILINOGEN 0.2 mg/dL (0.2 - 1)
[2018-09-12 09:29] LABS: PREGNANCY TEST, URINE NEGATIVE (NEGATIVE)
[2018-09-12 09:44] LABS: BACTERIA,URINE RARE /HPF; EPITHELIAL CELLS,URINE RARE /LPF
[2018-09-12 10:03] LABS: BASOPHILS % 0.3 % (0.0-1.0); EOSINOPHILS # (AUTO) 0.2 (0.0-0.4); EOSINOPHILS % 2.3 % (0.0-6.0); HEMATOCRIT 31.7 % (34.2-44.1); LYMPHOCYTES # (AUTO) 2.5 (1.0-3.2); LYMPHOCYTES % 24.3 % (18.0-39.1); MEAN CORPUSCULAR HEMOGLOBIN 20.6 pg (28-32); MEAN CORPUSCULAR VOLUME 71.1 fL (81-99); MONOCYTES # (AUTO) 0.6 (0.2-0.8); MONOCYTES % 5.5 % (4.4-11.3); NEUTROPHILS # (AUTO) 6.9 (2.1-6.9); NEUTROPHILS % 67.1 % (38.7-80.0); PLATELET COUNT 407 x10e3/uL (140-360); RED BLOOD COUNT 4.46 x10e6/uL (3.6-5.1); RED CELL DISTRIBUTION WIDTH 19.9 % (11.7-14.4)
[2018-09-12 10:09] LABS: HEMOGLOBIN 9.2 g/dL (12.0-16.0)
[2018-09-12 10:38] LABS: ALANINE AMINOTRANSFERASE 18 IU/L (0-55); ALBUMIN 3.5 g/dL (3.5-5.0); ALBUMIN/GLOBULIN RATIO 0.9 (0.8-2.0); ALKALINE PHOSPHATASE 124 IU/L (40-150); ANION GAP 13.3 mmol/L (8-16); BLOOD UREA NITROGEN 19 mg/dL (7-26); BUN/CREATININE RATIO 27 (6-25); CALCIUM 9.4 mg/dL (8.4-10.2); CARBON DIOXIDE 20 mmol/L (22-29); CHLORIDE 107 mmol/L (98-107); CREATININE, SERUM 0.71 mg/dL (0.57-1.11); EST GLOMERULAR FILTRATION RATE > 60 ML/MIN (60-); GLUCOSE 87 mg/dL (74-118); POTASSIUM 4.3 mmol/L (3.5-5.1); SODIUM 136 mmol/L (136-145)
== END 2018-09-12 13:45 | disposition home or self-care (01) ==
LOC: ER 08:06
DX: M54.5 Low back pain (principal); M54.16 Radiculopathy, lumbar region; I10 Essential (primary) hypertension; E11.9 Type 2 diabetes mellitus without complications; I51.9 Heart disease, unspecified
CPT/HCPCS: 36415; 80053; 81001; 81025; 85025; 99284

== ENCOUNTER → 2019-12-17 | Emergency (ER) | payer OTHER ==
[~2019-12-17] VITALS: Ht 149.9 cm; Wt 82.6 kg
[~2019-12-17] MED LIST changes: +DIPHENHYDRAMINE HCL INJ 50 MG/ML VIAL IM ONE; +FAMOTIDINE 20 MG TAB PO ONE; +METHYLPREDNISOLONE SOD SUCC 125 MG/2ML VIAL IM ONE
--- OUTSIDE RECORDS SUMMARY | 2019-12-17 23:26 | XMS REPORT ---
[facility] Address Unknown Phone Unavailable Care Team Providers Care All Around Presser Name Role Phone JARROD DEL VALLE, Keeley BENAVIDEZ PP Keeley ELLISON Unavailable Unavailable Savanna TORREZ Unavailable Unavailable Keeley HYLTON Unavailable Unavailable Bashir DAVISON Unavailable Unavailable CRYSTAL CORBIN Unavailable Unavailable Payers Payer Name Policy Type Policy Number Effective Date Expiration Date [facility] [id number] 2011 00:00:00 [facility] [id number] 2011 00:00:00 [facility] [id number] 2011 00:00:00 [facility] [id number] 2011 00:00:00 [employer] Daniel [id number] 2011 00:00:00 Problems Condition Name Condition Details Condition Category Status Onset Date Resolution Date Last Treatment Date Treating Clinician Comments Diabetes mellitus Diabetes Problem Active 2015-11-25 00:00:00 Hypertension Hypertension Problem Active 2015-11-25 00:00:00 TIA (transient ischemic attack) TIA (transient ischemic attack) Problem Active 2015-11-25 00:00:00 Weakness Weakness Problem Active 2015-11-25 00:00:00 Contusion Contusion Problem Active Food impaction of esophagus Food impaction of esophagus Problem Active Allergies, Adverse Reactions, Alerts Allergy Name Allergy Type Status Severity Reaction(s) Onset Date Inactive Date Treating Clinician Comments Penicillins DA Active HI 2018-11-01 00:00:00 Tetracyclines DA Active HI 2018-11-01 00:00:00 iodine DA Active HI 2018-11-01 00:00:00 morphine DA Active 2018-11-01 00:00:00 cyclobenzaprine DA Active HI 2018-11-01 00:00:00 strawberry DA Active 2018-11-01 00:00:00 strawberry FA Active 2018-11-01 00:00:00 Penicillin Allergy to Substance Active Mild 2018-02-01 00:00:00 Iodine Allergy to Substance Active Mild 2018-02-01 00:00:00 Morphine Allergy to Substance Active Severe "shock" 2018-02-01 00:00:00 Tetracycline Allergy to Substance Active Moderate HIVES 2018-02-01 00:00:00 Cyclobenzaprine Allergy to Substance Active Mild 2018-02-01 00:00:00 Penicillins DA Active HI 2016-11-16 00:00:00 Tetracyclines DA Active HI 2016-11-16 00:00:00 iodine DA Active HI 2016-11-16 00:00:00 morphine DA Active 2016-11-16 00:00:00 cyclobenzaprine DA Active HI 2016-11-16 00:00:00 strawberry DA Active U 2016-11-16 00:00:00 Medications Ordered Medication Name Filled Medication Name Start Date Stop Date Current Medication? Ordering Clinician Indication Dosage Frequency Signature (SIG) Comments Components Amlodipine Besylate 5 Mg Tablet Amlodipine Besylate 5 Mg Tablet Yes 5 Daily Aspirin (Aspir 81) 81 Mg Tablet. Aspirin (Aspir 81) 81 Mg Tablet. Yes 81 Daily Citalopram Hydrobromide (Citalopram Hbr) 20 Mg Tablet Citalopram Hydrobromide (Citalopram Hbr) 20 Mg Tablet Yes 20 Daily Escitalopram Oxalate (Lexapro) 10 Mg Tablet Escitalopram Oxalate (Lexapro) 10 Mg Tablet Yes 10 Daily Esomeprazole Magnesium (Nexium) 40 Mg Capsule. Esomeprazole Magnesium (Nexium) 40 Mg Capsule. Yes Bid Glimepiride 2 Mg Tablet Glimepiride 2 Mg Tablet Yes Bid Insulin Glargine (Lantus 3ML Pen) 100 Units/1 Ml Inj Insulin Glargine (Lantus 3ML Pen) 100 Units/1 Ml Inj Yes 12 As Needed Lisinopril (Prinavil / Zestril) 20 Mg Tablet Lisinopril (Prinavil / Zestril) 20 Mg Tablet Yes Bid Metformin Hcl 1,000 Mg Tablet Metformin Hcl 1,000 Mg Tablet Yes 500 Twice A Day Quetiapine Fumarate 100 Mg Tablet Quetiapine Fumarate 100 Mg Tablet Yes 50 Bedtime Saxagliptin Hcl (Onglyza) 5 Mg Tablet Saxagliptin Hcl (Onglyza) 5 Mg Tablet Yes 5 Twice A Day Topiramate 50 Mg Tablet Topiramate 50 Mg Tablet Yes 50 Daily Hydrochlorothiazide 25 Mg Tablet, 12.5 Mg Oral Hydrochlorothiazide 25 Mg Tablet, 12.5 Mg Oral 2017-12-02 00:00:00 No 12.5 Daily Insulin Glargine (Lantus 3ML Pen) 100 Units/1 Ml Inj, 12 Insulin Glargine (Lantus 3ML Pen) 100 Units/1 Ml Inj, 12 2017-12-02 00:00:00 No 12 Lovastatin 40 Mg Tablet, 40 Mg Oral Lovastatin 40 Mg Tablet, 40 Mg Oral 2017-12-02 00:00:00 No 40 Daily Metoclopramide Hcl 10 Mg Tablet, 10 E Oral Metoclopramide Hcl 10 Mg Tablet, 10 E Oral 2017-12-02 00:00:00 No 10 Daily Montelukast Sodium 10 Mg Tablet, 10 Mg Oral Montelukast Sodium 10 Mg Tablet, 10 Mg Oral 2017-12-02 00:00:00 No 10 Daily Tramadol Hcl (Ultram) 50 Mg Tablet, 50 Mg Oral Tramadol Hcl (Ultram) 50 Mg Tablet, 50 Mg Oral 2017-12-02 00:00:00 No 50 Every 8 Hours as needed for Pain Trazodone Hcl 100 Mg Tablet, 100 Mg Oral Trazodone Hcl 100 Mg Tablet, 100 Mg Oral 2017-12-02 00:00:00 No 100 Daily Pregabalin (Lyrica) 75 Mg Cap, 75 Mg Oral Pregabalin (Lyrica) 75 Mg Cap, 75 Mg Oral 2016-12-12 00:00:00 No 75 Daily Metformin Hcl 500 Mg Tablet, Metformin Hcl 500 Mg Tablet, 2016-03-28 00:00:00 No Two Tabs Bid Pravastatin Sodium 80 Mg Tablet, 80 Mg Oral Pravastatin Sodium 80 Mg Tablet, 80 Mg Oral 2015-11-27 00:00:00 No 80 Zolpidem Tartrate (Ambien) 10 Mg Tablet, Zolpidem Tartrate (Ambien) 10 Mg Tablet, 2015-11-25 00:00:00 No Hs Lisinopril 10 Mg Tablet, 10 Mg Oral Lisinopril 10 Mg Tablet, 10 Mg Oral 2013-02-21 00:00:00 No 10 Daily Ciprofloxacin Hcl 500 Mg Tablet, 500 Mg Oral Ciprofloxacin Hcl 500 Mg Tablet, 500 Mg Oral 2012-07-04 00:00:00 No 500 Twice A Day Ibuprofen 800 Mg Tablet, 800 Mg Oral Ibuprofen 800 Mg Tablet, 800 Mg Oral 2012-07-04 00:00:00 No 800 Every 8 Hrs Trazodone Hcl 100 Mg Tablet, 100 Mg Oral Trazodone Hcl 100 Mg Tablet, 100 Mg Oral 2012-07-04 00:00:00 No 100 Bp Med , Bp Med , 2012-06-06 00:00:00 No Metformin , Metformin , 2012-06-06 00:00:00 No Procedures and Interventions Procedure Date / Time Performed Performing Clinician CT of abdomen and pelvis without contrast 2018-03-26 00:00:[address] of abdomen and pelvis without contrast 2018-02-01 00:00:00 LAVERN HYLTON Computed tomography of chest with contrast 2017-12-02 00:00:00 DOROTHEA CHRISTIANSON Encounters Start Date/Time End Date/Time Encounter Type Admission Type Attending [facility] Care Facility Care Department Encounter ID 2018-09-12 08:06:00 2018-09-12 13:45:00 Departed Emergency Room [facility] [id number] 2018-05-15 06:31:00 2018-05-15 10:40:00 Departed Emergency Room 1 BHAVANI ELLISON [facility] [id number] 2018-03-26 11:16:00 2018-03-26 15:53:00 Departed Emergency Room 1 ALAN TORREZ [facility] [id number] 2018-02-01 21:57:00 2018-02-02 00:33:00 Departed Emergency Room 1 LAVERN HYLTON [facility] [id number] 2017-12-02 13:33:00 2017-12-02 19:33:00 Departed Emergency Room ER YANE DAVISON [facility] [id number] 2017-08-08 22:41:00 2017-08-10 18:48:00 Discharged Inpatient (obs) ER KAREEM CORBINEMMAPRICILLA [facility] [id number] Results Test Description Test Time Test Comments Text Results Atomic Results Result Comments GLUBED 2019-10-14 16:52:00 GLUBED (test code=GLUBED) 118 mg/dL 74-106 Performed by certified fertilizing machine operator at [facility] [id number] 12:13:00* Test Item Value Reference Range Comments GLUBED (test code=GLUBED) 107 mg/dL 74-106 Performed by certified fertilizing machine operator at [facility] [id number] 08:51:00* Test Item Value Reference Range Comments GLUBED (test code=GLUBED) 72 mg/dL 74-106 Performed by certified fertilizing machine operator at [facility] - CT NECK W/O [id number] 16:20:00 Name: ROSITA MCGHEE [facility] : 1960 Age/S: 58 / F [address] [facility] Unit #: [id number] Loc: RADHA Kraus [address] Phys: Morgan Corbin MD Acct: [id number] Dis Date: Status: ADM IN PHONE #: [phone] Exam Date: 10/13/2019 4552 FAX #: [phone] Reason: FOOD IMPACTION EXAMS: CPT CODE: [id number] CT NECK W/O CONTRAST 43492 HISTORY: Foot impaction. COMPARISON: CTA neck from November 01, 2018. CT neck without contrast: Automated exposure control. Location: TH. The brain parenchyma is unremarkable. Intraorbital contents are unremarkable. Paranasal sinuses are clear. Visualized paranasal sinuses are clear. Symmetrical fossa of Rosenmueller and parapharyngeal spaces. Hard and soft palate are partially obscured by beam hardening artifact from patient's dental work. Base of the tongue and oral tongue are without mass or lesions. Symmetrical retromolar trigone. Uvula is midline. No tonsillar collection. No prevertebral or retropharyngeal fluid collections are visible. Symmetrical parotid glands and parotid spaces along with carotid spaces. The line department supervisor spaces are symmetrical. Submandibular glands are symmetrical. No sialoliths. No pathologic adenopathy from level 1 through 6. The nasopharyngeal and oropharyngeal airway are widely patent. Well-aerated right side of the vallecula and piriform sinuses. Soft tissue occupying the left vallecula and left pir iform sinus. No mass effect. Direct visualization is recommended as it i s difficult to assess on this noncontrast exam. The true and false cords are unremarkable. Thyroid glands unremarkable. Superior mediastinum is unremarkable. Esophagus is unremarkable without mass or dilatation or wall thickening. Lung apices are clear. No lytic or blastic lesions are noted within the bony skeleton. Sclerosis of the mastoid air cells. IMPRESSION: Fullness of the left vallecula and the piriform sinus when compared to the right side with no air noted. It is difficult to assess for masses as contrast could not be administered due to allergy. No mass effect. Direct visualization recommended. Rest of the airway is widely patent. No pathologic adenopathy from level 1 through 6. PAGE 1 Signed Report (CONTINUED) Name: ROSITA MCGHEE [facility] : 1960 Age/S: 58 / F [address] [facility] Unit #: [id number] Loc: RADHA Kraus [address] Ph ys: Morgan Corbin MD Acct: [id number] Dis Date: Status: ADM IN PHONE #: [phone] Exam Date: 10/13/2019 9189 FAX #: [phone] Reason: FOOD IMPACTION EXAMS: CPT CODE: [id number] CT NECK W/O CONTRAST 13499 <Continued> at 1620 Reported and signed by: Tanner Melendrez M.D. CC: Morgan Corbin MD; Crystal Corbin MD; Jose Elias Wilson MD, Ramon A MD T echnologist:Tami Gross RT(R),CT CTDI: DLP: Trnscb Date /Time: 10/13/2019 (1619) t.SDR.TH4 Orig Print D/T: S: (0951) PAGE 2 Signed Report BASIC METABOLIC [id number] 21:47:00* Test Item Value Reference Range Comments SODIUM (test code=NA) 140 mmol/L 136-145 POTASSIUM (test code=K) 3.9 mmol/L 3.5-5.1 CHLORIDE (test code=CL) 108.0 mmol/L 98-107 CARBON DIOXIDE (test code=CO2) 25.0 mmol/L 21-32 ANION GAP (test code=GAP) 10.9 10-20 GLUCOSE (test code=GLU) 108 mg/dL 74-106 BLOOD UREA NITROGEN (test code=BUN) 14 mg/dL 7-18 GLOMERULAR FILTRATION RATE (test code=GFR) > 60 mL/min >=60 Estimated GFR by using Modified MDRD formula.Chronic kidney disease is defined as either kidney damageor GFR <60 mL/min/1.73 m2 for >3 months. CREATININE (test code=CREAT) 0.70 mg/dL 0.55-1.02 Note change in reference range due to change in reagent. BUN/CREATININE RATIO (test code=BUN/CREA) 20.0 10-20 CALCIUM (test code=CA) 9.6 mg/dL 8.5-10.1 HEPATIC FUNCTION [id number] 21:47:00* Test Item Value Reference Range Comments TOTAL PROTEIN (test code=PROT) 8.2 gram/dL 6.4-8.2 ALBUMIN (test code=ALB) 3.7 g/dL 3.4-5.0 GLOBULIN (test code=GLOB) 4.5 gram/dL 2.7-4.2 ALBUMIN/GLOBULIN RATIO (test code=A/G) 0.8 0.75-1.50 BILIRUBIN TOTAL (test code=BILT) 0.30 mg/dL 0.0-1.0 BILIRUBIN DIRECT (test code=BILD) 0.07 mg/dL 0.0-0.20 SGOT/AST (test code=AST) 16 IUnit/L 15-37 SGPT/ALT (test code=ALT) 26 IUnit/L 12-78 ALKALINE PHOSPHATASE TOTAL (test code=ALKP) 141 IUnit/L 45-117 Note change in reference range due to change in reagent. [id number] 21:47:00* Test Item Value Reference Range Comments LIPASE (test code=LIP) 130 U/L 73.0-393.0 HCG SERUM [id number] 21:47:00* Test Item Value Reference Range Comments HCG SERUM QUAL (test code=HCGQL) NEGATIVE NEGATIVE This HCGQL test is NOT applicable for MALE patients.Check with nurse about probable order error.If Tumor Marker Test needed, nurse should order test "HCGTU"(Test #550.18458) [id number] 21:47:00* Test Item Value Reference Range Comments TROPONIN-I (test code=TROPI) <0.015 ng/mL 0-0.045 BASIC METABOLIC [id number] 21:46:00* Test Item Value Reference Range Comments SODIUM (test code=NA) 140 mmol/L 136-145 POTASSIUM (test code=K) 3.9 mmol/L 3.5-5.1 CHLORIDE (test code=CL) 108.0 mmol/L 98-107 CARBON DIOXIDE (test code=CO2) mmol/L 21-32 ANION GAP (test code=GAP) 10-20 GLUCOSE (test code=GLU) mg/dL 74-106 BLOOD UREA NITROGEN (test code=BUN) mg/dL 7-18 GLOMERULAR FILTRATION RATE (test code=GFR) mL/min >=60 CREATININE (test code=CREAT) mg/dL 0.55-1.02 BUN/CREATININE RATIO (test code=BUN/CREA) 10-20 CALCIUM (test code=CA) mg/dL 8.5-10.1 HEPATIC FUNCTION [id number] 21:46:00* Test Item Value Reference Range Comments TOTAL PROTEIN (test code=PROT) gram/dL 6.4-8.2 ALBUMIN (test code=ALB) g/dL 3.4-5.0 GLOBULIN (test code=GLOB) gram/dL 2.7-4.2 ALBUMIN/GLOBULIN RATIO (test code=A/G) 0.75-1.50 BILIRUBIN TOTAL (test code=BILT) mg/dL 0.0-1.0 BILIRUBIN DIRECT (test code=BILD) mg/dL 0.0-0.20 SGOT/AST (test code=AST) IUnit/L 15-37 SGPT/ALT (test code=ALT) IUnit/L 12-78 ALKALINE PHOSPHATASE TOTAL (test code=ALKP) IUnit/L 45-117 [id number] 21:46:00* Test Item Value Reference Range Comments LIPASE (test code=LIP) U/L 73.0-393.0 HCG SERUM [id number] 21:46:00* Test Item Value Reference Range Comments HCG SERUM QUAL (test code=HCGQL) NEGATIVE NEGATIVE This HCGQL test is NOT applicable for MALE patients.Check with nurse about probable order error.If Tumor Marker Test needed, nurse should order test "HCGTU"(Test #550.23615) [id number] 21:46:00* Test Item Value Reference Range Comments TROPONIN-I (test code=TROPI) ng/mL 0-0.045 BASIC METABOLIC [id number] 21:41:00* Test Item Value Reference Range Comments SODIUM (test code=NA) 140 mmol/L 136-145 POTASSIUM (test code=K) 3.9 mmol/L 3.5-5.1 CHLORIDE (test code=CL) 108.0 mmol/L 98-107 CARBON DIOXIDE (test code=CO2) mmol/L 21-32 ANION GAP (test code=GAP) 10-20 GLUCOSE (test code=GLU) mg/dL 74-106 BLOOD UREA NITROGEN (test code=BUN) mg/dL 7-18 GLOMERULAR FILTRATION RATE (test code=GFR) mL/min >=60 CREATININE (test code=CREAT) mg/dL 0.55-1.02 BUN/CREATININE RATIO (test code=BUN/CREA) 10-20 CALCIUM (test code=CA) mg/dL 8.5-10.1 HEPATIC FUNCTION [id number] 21:41:00* Test Item Value Reference Range Comments TOTAL PROTEIN (test code=PROT) gram/dL 6.4-8.2 ALBUMIN (test code=ALB) g/dL 3.4-5.0 GLOBULIN (test code=GLOB) gram/dL 2.7-4.2 ALBUMIN/GLOBULIN RATIO (test code=A/G) 0.75-1.50 BILIRUBIN TOTAL (test code=BILT) mg/dL 0.0-1.0 BILIRUBIN DIRECT (test code=BILD) mg/dL 0.0-0.20 SGOT/AST (test code=AST) IUnit/L 15-37 SGPT/ALT (test code=ALT) IUnit/L 12-78 ALKALINE PHOSPHATASE TOTAL (test code=ALKP) IUnit/L 45-117 [id number] 21:41:00* Test Item Value Reference Range Comments LIPASE (test code=LIP) U/L 73.0-393.0 HCG SERUM [id number] 21:41:00* Test Item Value Reference Range Comments HCG SERUM QUAL (test code=HCGQL) NEGATIVE [id number] 21:41:00* Test Item Value Reference Range Comments TROPONIN-I (test code=TROPI) ng/mL 0-0.045 CBC W/O [id number] 21:29:00* Test Item Value Reference Range Comments WHITE BLOOD CELL (test code=WBC) 13.9 K/mm3 4.5-12.5 RED BLOOD CELL (test code=RBC) 4.36 mill/mm3 3.7-5.2 HEMOGLOBIN (test code=HGB) 11.5 gram/dL 11.5-15.5 HEMATOCRIT (test code=HCT) 35.9 % 36.0-46.0 MEAN CELL VOLUME (test code=MCV) 82.3 fL 80-98 MEAN CELL HGB (test code=MCH) 26.4 picogram 27.0-33.0 MEAN CELL HGB CONCETRATION (test code=MCHC) 32.0 gram/dL 33.0-36.0 RED CELL DISTRIBUTION WIDTH (test code=RDW) 14.0 % 11.6-16.2 PLATELET COUNT (test code=PLT) 375 K/mm3 150-450 MEAN PLATELET VOLUME (test code=MPV) 9.7 fL 6.7-11.0 CBC W/O [id number] 21:20:00* Test Item Value Reference Range Comments WHITE BLOOD CELL (test code=WBC) K/mm3 4.5-12.5 RED BLOOD CELL (test code=RBC) mill/mm3 3.7-5.2 HEMOGLOBIN (test code=HGB) 11.5 gram/dL 11.5-15.5 HEMATOCRIT (test code=HCT) % 36.0-46.0 MEAN CELL VOLUME (test code=MCV) fL 80-98 MEAN CELL HGB (test code=MCH) picogram 27.0-33.0 MEAN CELL HGB CONCETRATION (test code=MCHC) gram/dL 33.0-36.0 RED CELL DISTRIBUTION WIDTH (test code=RDW) % 11.6-16.2 PLATELET COUNT (test code=PLT) K/mm3 150-450 MEAN PLATELET VOLUME (test code=MPV) fL 6.7-11.0 URINALYSIS [id number] 21:06:00* Test Item Value Reference Range Comments UA COLOR (test code=COLU) COLORLESS YELLOW UA APPEARANCE (test code=APPU) CLEAR CLEAR UA GLUCOSE DIPSTICK (test code=DGLUU) NEGATIVE mg/dL NEGATIVE UA BILIRUBIN DIPSTICK (test code=BILU) NEGATIVE mg/dL NEGATIVE UA KETONE DIPSTICK (test code=KETU) NEGATIVE mg/dL NEGATIVE UA SPECIFIC GRAVITY (test code=SGU) 1.003 1.001-1.035 UA BLOOD DIPSTICK (test code=NORTH) Negative mg/dL NEGATIVE UA PH DIPSTICK (test code=JAVON) 6.0 5.0-8.0 UA PROTEIN DIPSTICK (test code=PROU) NEGATIVE mg/dL NEGATIVE UA UROBILINIOGEN DIPSTICK (test code=URO) Normal mg/dL NEGATIVE UA NITRITE DIPSTICK (test code=KAITLIN) NEGATIVE NEGATIVE UA LEUKOCYTE ESTERASE W REFLEX (test code=LEUUR) NEGATIVE Jessica/uL NEGATIVE UA WBC (test code=WBCU) 0-5 per HPF 0-5 UA RBC (test code=RBCU) NONE SEEN #/HPF 0-5 UA EPITHELIAL CELLS (test code=EPIU) FEW per HPF FEW UA BACTERIA (test code=BACU) NONE SEEN #/HPF NONE Urine Source? Clean CatchFECES OVA [id number] 15:10:00* Test Item Value Reference Range Comments CONCENTRATE RESULT (test code=CONC) Final report () These results were obtained using wet preparation(s) andtrichrome stained smear. This test does not include testingfor Cryptosporidium parvum, Cyclospora, or Microsporidia. TRICHROME RESULT (test code=TRIC) SOURCE: STOOLSPECIMEN DESCRIPTION: RANDOMAG GIARDIA [id number] 15:10:00* Test Item Value Reference Range Comments AG GIARDIA FECES (test code=GIARDAG) Negative Negative Performed At: [facility] [id number] Potter MD Ph:[phone] SOURCE: STOOLSPECIMEN DESCRIPTION: RANDOMFECES OVA [id number] 15:10:00* Test Item Value Reference Range Comments CONCENTRATE RESULT (test code=CONC) Final report () These results were obtained using wet preparation(s) andtrichrome stained smear. This test does not include testingfor Cryptosporidium parvum, Cyclospora, or Microsporidia. TRICHROME RESULT (test code=TRIC) () No ova, cysts, or parasites seen.One negative specimen does not rule out the possibility ofa parasitic infection.Performed At: [facility] [id number] Potter MD Ph:[phone] SOURCE: STOOLSPECIMEN DESCRIPTION: RANDOMAG GIARDIA [id number] 15:10:00* Test Item Value Reference Range Comments AG GIARDIA FECES (test code=GIARDAG) Negative Negative Performed At: [facility] [id number] Potter MD Ph:[phone] SOURCE: STOOLSPECIMEN DESCRIPTION: RANDOMCALPROTECTIN [id number] 14:09:00* Test Item Value Reference Range Comments CALPROTECTIN FECAL (test code=CALFECAL) <16 ug/g 0-120 Concentration Interpretation Follow-Up<16 - 50 ug/g Normal None>50 -120 ug/g Borderline Re-evaluate in 4-6 weeks >120 ug/g Abnormal Repeat as clinic ally indicatedPerformed At: [facility] [address] [place], [place] [id number] Banuelos MD Ph:[phone] DUODENUM,[id number] 15:00:00 RUN DATE: 10/10/19 [facility] PAGE 1 RUN TIME: 1500 Specimen Inqui ry RUN USER: INTERFACE PATIENT: ROSITA MCGHEE ACCT #: [id number] LOC: WendySRG U #: [id number] AGE/SX: 58/F ROOM: RE10/09/19REG DR: Morgan Corbin MD : 60 BED: DIS: STATUS: [facility] TLOC: SPEC #: [id number] RECD: 10/09/19 STATUS: [place] HOUSER #: [id number] RACHEL: 10/09/19- SUBM DR: Morgan Corbin MD ENTERED: 10/09/19 SP TYPE: BX DUODEN OTHR DR: Yves Corey MD ORDERED: GROSS COPIES TO: Morgan Corbin MD [address] [place], [place] [id number] Yves Corey MD [address] [facility], [place] [id number] PROCEDURES: GROSS (-1332) TISSUES: 1. DUODENUM, NOS - 2nd PORTION BX 2. ANTR UM - BX 3. ILEUM, NOS - TERMINAL BX 4. LEFT COLON - RANDOM BX 5. RECTUM, NOS - BX CLINICAL HISTORY COLLECTION DATE: 10/09/19 CONSTIPATION, ABDOMINAL PAIN, GASTRIC VARICER, DYSPHAGIA FINAL DIAG NOSIS Second portion of duodenum, biopsy: DUODENAL MUCOSA WITH UNREMAR KABLE VILLOUS ARCHITECTURE AND MILDLY INCREASED CHRONIC INFLAMMATION IN LAMINA PROPRIA NO INTRAEPITHELIAL INFLAMMATION PRESENT NO AREAS OF MUCOSAL EROSION/ULCERATION NEGATIVE FOR MALIGNANCY Gastric antrum, biopsy: PATCHY MINIMAL-MILD CHRONIC INFLAMMATION IN GASTRIC MUCOSA NO AREAS OF MUCOSAL EROSION/ULCERATION NEGATIVE FOR HELICOBACTER ORGAN ISMS NEGATIVE FOR INTESTINAL METAPLASIA NEGATIVE FOR MALIGNANCY CONTINUED ON NEXT PAGE RUN DA TE: 10/10/19 AlburnettShaser PAG E 2 RUN TIME: 1500 Specimen Inquiry RUN USER: INTERFACE SPEC #: [id number] PATIENT: ROSITA MCGHEE #[id number] (Continued) FINAL DIAGNOSIS (Contin ued) Terminal ileum, biopsy: SMALL BOWEL MUCOSA WITH NO PATHOLOGIC ALT ERATION Random colon, biopsy: COLONIC MUCOSA WITH MILD NONSPEC IFIC CHRONIC INFLAMMATION AND SMALL LYMPHOID AGGREGATES NO CRYPT ITIS OR CRYPT DISTORTION PRESENT NO AREAS OF MUCOSAL EROSION/ULCERATION NO HYPERPLASTIC OR ADENOMATOUS CHANGE PRESENT NEGATIVE FOR MALIGNAN CY Rectum, biopsy: RECTAL/COLONIC MUCOSA WITH MINIMAL-MILD NONSPECI FIC CHRONIC INFLAMMATION NO CRYPTITIS OR CRYPT DISTORTION PRESENT NO AREAS OF MUCOSAL EROSION/ULCERATION NO HYPERPLASTIC OR ADENOMATOUS ARNAUD NGE PRESENT NEGATIVE FOR MALIGNANCY RRB/sm D 55143m3, 78533 MACROSCOPIC The first specimen is received in formalin, labeled wi th the patient's name, and identified as "2nd portion duodenum bx". It consis ts of preston biopsy material measuring 0.5 cm in aggregate, sumitted as (1). The second specimen is received in formalin, labeled with the patient's name, and identified as "antrum bx". It consists of preston biopsy material measuring 0.5 cm in aggregate, submitted as (2). The third specimen is received in formalin, labeled with the patient's name, and identified as "terminal ileum b x". It consists of a preston biopsy fragment measuring 0.3 cm, submitted as (3). The fourth specimen is received in formalin, labeled with the patient's name, and identified as "random left colon bx". It consists of preston biopsy mat erial measuring 0.5 cm in aggregate, submitted as (4). The fifth speci men is received in formalin, labeled with the patient's name, and identified a s "rectal bx". It consists of preston biopsy material measuring 0.3 cm, submitted as (5). GROSS PERFORMED AT [facility] [address] [place] [address] CONTINUED ON NEXT PAGE RUN DATE: 10/10/19 [facility] PAGE 3 RUN TIME: 1500 Specimen Inquiry RUN USER: IN TERFACE SP EC #: [id number] PATIENT: ROSITA MCGHEE RUSS #[id number] ( Continued) MACROSCOPIC (Continued) (P) MICROSCOPIC A Giemsa stain was performed on the gastric bio psy to exclude Helicobacter organisms. All of the stains, including any contr ols performed, stain appropriately. MICROSCOPIC PERFORMED AT [facility] [address] [place] [address] ([phone] PERFORM[address] SITE Diagnosis performed at: [facility] [address] [place] [address] --------- --- Signed SIGNATURE ON FILE Nick Kendrick MD 10/10/19 1500 E ND OF REPORT FECES OVA [id number] 11:10:00* Test Item Value Reference Range Comments CONCENTRATE RESULT (test code=CONC) TRICHROME RESULT (test code=TRIC) SOURCE: STOOLSPECIMEN DESCRIPTION: RANDOMAG GIARDIA [id number] 11:10:00* Test Item Value Reference Range Comments AG GIARDIA FECES (test code=GIARDAG) Negative Negative Performed At: [facility] [address] [id number] Robert Potter MD Ph:[phone] SOURCE: STOOLSPECIMEN DESCRIPTION: [id number] 08:08:00* Test Item Value Reference Range Comments GLUBED (test code=GLUBED) 96 mg/dL 74-106 Performed by certified fertilizing machine operator at [facility] BASIC METABOLIC [id number] 14:09:00* Test Item Value Reference Range Comments SODIUM (test code=NA) 139 mmol/L 136-145 POTASSIUM (test code=K) 4.4 mmol/L 3.5-5.1 CHLORIDE (test code=CL) 110.0 mmol/L 98-107 CARBON DIOXIDE (test code=CO2) 22.0 mmol/L 21-32 ANION GAP (test code=GAP) 11.4 10-20 GLUCOSE (test code=GLU) 77 mg/dL 74-106 BLOOD UREA NITROGEN (test code=BUN) 21 mg/dL 7-18 GLOMERULAR FILTRATION RATE (test code=GFR) > 60 mL/min >=60 Estimated GFR by using Modified MDRD formula.Chronic kidney disease is defined as either kidney damageor GFR <60 mL/min/1.73 m2 for >3 months. CREATININE (test code=CREAT) 0.70 mg/dL 0.55-1.02 Note change in reference range due to change in reagent. BUN/CREATININE RATIO (test code=BUN/CREA) 30.0 10-20 CALCIUM (test code=CA) 9.8 mg/dL 8.5-10.1 CBC W/AUTO [id number] 13:27:00* Test Item Value Reference Range Comments WHITE BLOOD CELL (test code=WBC) 11.9 K/mm3 4.5-12.5 RED BLOOD CELL (test code=RBC) 4.56 mill/mm3 3.7-5.2 HEMOGLOBIN (test code=HGB) 11.8 gram/dL 11.5-15.5 HEMATOCRIT (test code=HCT) 37.8 % 36.0-46.0 MEAN CELL VOLUME (test code=MCV) 82.9 fL 80-98 MEAN CELL HGB (test code=MCH) 25.9 picogram 27.0-33.0 MEAN CELL HGB CONCETRATION (test code=MCHC) 31.2 gram/dL 33.0-36.0 RED CELL DISTRIBUTION WIDTH (test code=RDW) 14.3 % 11.6-16.2 RED CELL DISTRIBUTION WIDTH SD (test code=RDW-SD) 42.9 fL 37.0-51.0 PLATELET COUNT (test code=PLT) 391 K/mm3 150-450 MEAN PLATELET VOLUME (test code=MPV) 10.0 fL 6.7-11.0 NEUTROPHIL % (test code=NT%) 63.9 % 39.0-69.0 IMMATURE GRANULOCYTE % (test code=IG%) 0.8 % 0.0-5.0 LYMPHOCYTE % (test code=LY%) 21.9 % 25.0-55.0 MONOCYTE % (test code=MO%) 5.8 % 0.0-10.0 EOSINOPHIL % (test code=EO%) 7.3 % 0.0-5.0 BASOPHIL % (test code=BA%) 0.3 % 0.0-1.0 NUCLEATED RBC % (test code=NRBC%) 0.0 % 0-0 NEUTROPHIL # (test code=NT#) 7.63 K/mm3 1.8-7.7 IMMATURE GRANULOCYTE # (test code=IG#) 0.09 x10 3/uL 0-0.03 LYMPHOCYTE # (test code=LY#) 2.61 K/mm3 1.0-5.0 MONOCYTE # (test code=MO#) 0.69 K/mm3 0-0.8 EOSINOPHIL # (test code=EO#) 0.87 K/mm3 0.0-0.5 BASOPHIL # (test code=BA#) 0.04 K/mm3 0.0-0.2 NUCLEATED RBC # (test code=NRBC#) 0.00 K/mm3 0.0-0.1 CBC W/AUTO [id number] 13:22:00* Test Item Value Reference Range Comments WHITE BLOOD CELL (test code=WBC) K/mm3 4.5-12.5 RED BLOOD CELL (test code=RBC) mill/mm3 3.7-5.2 HEMOGLOBIN (test code=HGB) 11.8 gram/dL 11.5-15.5 HEMATOCRIT (test code=HCT) 37.8 % 36.0-46.0 MEAN CELL VOLUME (test code=MCV) fL 80-98 MEAN CELL HGB (test code=MCH) picogram 27.0-33.0 MEAN CELL HGB CONCETRATION (test code=MCHC) gram/dL 33.0-36.0 RED CELL DISTRIBUTION WIDTH (test code=RDW) % 11.6-16.2 RED CELL DISTRIBUTION WIDTH SD (test code=RDW-SD) fL 37.0-51.0 PLATELET COUNT (test code=PLT) K/mm3 150-450 MEAN PLATELET VOLUME (test code=MPV) fL 6.7-11.0 NEUTROPHIL % (test code=NT%) % 39.0-69.0 IMMATURE GRANULOCYTE % (test code=IG%) % 0.0-5.0 LYMPHOCYTE % (test code=LY%) % 25.0-55.0 MONOCYTE % (test code=MO%) % 0.0-10.0 EOSINOPHIL % (test code=EO%) % 0.0-5.0 BASOPHIL % (test code=BA%) % 0.0-1.0 NEUTROPHIL # (test code=NT#) K/mm3 1.8-7.7 LYMPHOCYTE # (test code=LY#) K/mm3 1.0-5.0 MONOCYTE # (test code=MO#) K/mm3 0-0.8 EOSINOPHIL # (test code=EO#) K/mm3 0.0-0.5 BASOPHIL # (test code=BA#) K/mm3 0.0-0.2 - CTA [id number] 17:45:00 Name: BURT MCGHEEKIKA SOLANO [facility] : 1960 Age/S: 57 / F [address] [facility] Unit #: [id number] Loc: RADHA Kra[place] [address] Phys: Ashley Delgado DO Acct: [id number] Dis Date: Status: REG ER PHONE #: [phone] Exam Date: 11/01/2018 1542 FAX #: [phone] Reason: HEADACHE, R/O ANEURYSM EXAMS: CPT CODE: [id number] CTA NECK 73501 EXAM: CT angiography of the head and neck; INFORMATION: Headache, rule out aneurysm; TECHNIQUE AND FINDINGS: CT dose reduction protocol; Helical scans of the head and neck during intravenous infusion of contrast material. Multiplanar reconstructions were obtained. 3-D angiographic studies were generated on an independent workstation, using volume rendering and maximum intensity projection algorithms. Both common, internal and extra carotid arteries are patent. Mild atherosclerotic changes are seen at the origin of the internal carotid arteries but there is no evidence of significant plaques or stenosis. The intracranial portions of the ICAs as well as both anterior and middle cerebral arteries are patent; no evidence of stenosis; A patent in the neck and in the intracranial portions. The basilar artery and the posterior cerebral arteries are patent. No evidence of aneurysm or vascular malformation. IMPRESSION: 1. Except for mild atherosclerotic changes in the proximal portions of the internal carotid arteries unremarkable CT angiogram of the head and neck. 2. No evidence of vascular stenosis or occlusions. 3. No evidence of aneurysm or vascular malformation. at 1745 Reported and signed by: Gil Sanches M.D. CC: Yves Gan MD; Ashley Delgado DO Technologist:Virginia Lopes RT(R); María Miranda CTDI: DLP: Trnscb Date/Time: 11/01/2018 (4167) Tashi.GRW Orig Print D/T: S: 11/01/2018 (8496) CTDI: DLP: PAGE 1 Signed Report - CTA [id number] 17:45:00 Name: ROSITA MCGHEE [facility] : 1960 Age/S: 57 / F [address] [facility] Unit #: [id number] Loc: RADHA Kra[place] [address] Phys: Ashley Delgado DO Acct: [id number] Dis Date: Status: REG ER PHONE #: [phone] Exam Date: 11/01/2018 1542 FAX #: [phone] Reason: HEADACHE, R/O ANEURYSM EXAMS: CPT CODE: [id number] CTA HEAD 12580 EXAM: CT angiography of the head and neck; INFORMATION: Headache, rule out aneurysm; TECHNIQUE AND FINDINGS: CT dose reduction protocol; Helical scans of the head and neck during intravenous infusion of contrast material. Multiplanar reconstructions were obtained. 3-D angiographic studies were generated on an independent workstation, using volume rendering and maximum intensity projection algorithms. Both common, internal and extra carotid arteries are patent. Mild atherosclerotic changes are seen at the origin of the internal carotid arteries but there is no evidence of signi ficant plaques or stenosis. The intracranial portions of the ICAs as well as both anterior and middle cerebral arteries are patent; no evidence of stenosis; A patent in the neck and in the intracranial portions. The basilar artery and the posterior cerebral arteries are patent. No ev idence of aneurysm or vascular malformation. IMPRESSION: 1. Except for mild atherosclerotic changes in the proximal portions of the internal carotid arteries unremarkable CT angiogram of the head and neck. 2. No evidence of vascular stenosis or occlusions. 3. No e vidence of aneurysm or vascular malformation. Electronicall y Signed by Jus Sanches on 11/01/2018 at 17 45 Reported and signed by: Gil Sanches M.D. CC: Yves Gan MD; Ashley Delgado DO Techn ologist:Virginia Lopes RT(R); María Miranda CTDI: DLP: Trnscb Date/Hermilo e: 11/01/2018 (1745) TkGRW Orig Print D/T: S: 019 (2937) CTDI: DLP: PAGE 1 Sign ed Report - CT HEAD/BRAIN W/O [id number] 16:12:00 Name: ROSITA MCGHEE [facility] : 1960 Age/S: 57 / F [address] [facility] Unit #: [id number] Loc: Efra RADHA [address] Phys: Ashley Delgado DO Acct: [id number] Dis Date: Status: REG ER PHONE #: [phone] Exam Date: 11/01/2018 1542 FAX #: [phone] Reason: HEADACHE EXAMS: CPT CODE: [id number] CT HEAD/BRAIN W/O CONT 46691 EXAM: CT of the head; INFORMATION: Headache; TECHNIQUE AND FINDINGS: CT dose reduction protocol; The ventricles are symmetric and of normal diameter; normal width of basilar cisterns and sulci; normal senior/white matter differentiation; no evidence of intra or extra-axial hemorrhage, mass lesion or midline shift. Bone windows show no abnormalities. IMPRESSION: Normal CT scan of the head. at 1612 Reported and signed by: Gil Sanches M.D. CC: Yves Gan MD; Ashley Delgado DO Technologist:Virginia MARTINEZ(R); María Miranda CTDI: DLP: Trnscb Date/Time: 11/01/2018 (1612) TkGRAndrea Orig Print D/T: S: 11/01/2018 (1615) CTDI: DLP: PAGE 1 Signed Report BASIC METABOLIC [id number] 13:18:00* Test Item Value Reference Range Comments SODIUM (test code=NA) 137 mmol/L 136-145 POTASSIUM (test code=K) 4.4 mmol/L 3.5-5.1 CHLORIDE (test code=CL) 106.0 mmol/L 98-107 CARBON DIOXIDE (test code=CO2) 21.0 mmol/L 21-32 ANION GAP (test code=GAP) 14.4 10-20 GLUCOSE (test code=GLU) 184 mg/dL 74-106 BLOOD UREA NITROGEN (test code=BUN) 20 mg/dL 7-18 GLOMERULAR FILTRATION RATE (test code=GFR) > 60 mL/min >=60 Estimated GFR by using Modified MDRD formula.Chronic kidney disease is defined as either kidney damageor GFR <60 mL/min/1.73 m2 for >3 months. CREATININE (test code=CREAT) 0.80 mg/dL 0.55-1.02 Note change in reference range due to change in reagent. BUN/CREATININE RATIO (test code=BUN/CREA) 24.7 10-20 CALCIUM (test code=CA) 10.3 mg/dL 8.5-10.1 [id number]-[id number] 13:18:00* Test Item Value Reference Range Comments TROPONIN-I (test code=TROPI) <0.015 ng/mL 0-0.045 - XR CHEST 1 [id number] 13:12:00 FAX: Yves Nunez MD [phone] [place]: St: [facility] FAX: Ashley Delgado DO Name: ROSITA MCGHEE [facility] : 1960 Age/S: 57/F [address] Unit #: [id number] Loc: RADHA Vaz[place] [address] Phys: Ashley Delgado DO Acct: [id number] Dis Date: Status: REG ER PHONE #: [phone] Exam Date: 11/01/2018 1309 FAX #: [phone] Reason: STROKE EXAMS: CPT CODE: [id number] XR CHEST 1 V 83923 HISTORY: Stroke. COMPARISON: November 17, 2016. No acute infiltrates, effusion or congestion is noted. The cardiac and mediastinal silhouette are within normal limits. IMPRESSION: No acute infiltrates, effusion or congestion. at 1312 Reported and signed by: Tanner Melendrez M.D. CC: Yves Gan MD; Ashley Delgado DO Technologist: RUPESH MARTINEZ (R) Trnscrd Date/Time/By: 11/01/2018 (6328) : By: [email or web address] Orig Print D/T: S: 11/01/2018 (6024) PAGE 1 Signed Report PROTHROMBIN [id number] 13:09:00* Test Item Value Reference Range Comments PROTHROMBIN TIME PATIENT (test code=PTP) 11.5 seconds 9.0-14.0 INTERNATIONAL NORMAL RATIO (test code=INR) 1.0 0.8-1.2 The therapeutic range for oral anticoagulant therapy formost indications is an international normalized ratio (INR)of between 2.0 and 3.0. The recommended therapeutic INRrange for various clinical situations is listed below: Clinical Situation INR range Pulmonary e mbolism treatment (2.0-3.0)Venous thrombosis treatmentVenous thrombosis prophylaxis (high risk surgery)Prevention of systemic embolism from: Acute myocardial infarction Valvular heart disease Atrial fibrillation Mechanical prosthetic heart valves (2.5-3.5) IS PATIENT ON ANTICOAGULANTS? NTHROMBOPLASTIN TIME [id number] 13:09:00* Test Item Value Reference Range Comments THROMBOPLASTIN TIME PARTIAL (test code=PTT) 36.6 seconds 25.0-36.5 IS PATIENT ON ANTICOAGULANTS? NBASIC METABOLIC [id number] 13:07:00* Test Item Value Reference Range Comments SODIUM (test code=NA) 137 mmol/L 136-145 POTASSIUM (test code=K) 4.4 mmol/L 3.5-5.1 CHLORIDE (test code=CL) 106.0 mmol/L 98-107 CARBON DIOXIDE (test code=CO2) mmol/L 21-32 ANION GAP (test code=GAP) 10-20 GLUCOSE (test code=GLU) mg/dL 74-106 BLOOD UREA NITROGEN (test code=BUN) mg/dL 7-18 GLOMERULAR FILTRATION RATE (test code=GFR) mL/min >=60 CREATININE (test code=CREAT) mg/dL 0.55-1.02 BUN/CREATININE RATIO (test code=BUN/CREA) 10-20 CALCIUM (test code=CA) mg/dL 8.5-10.1 [id number] 13:07:00* Test Item Value Reference Range Comments TROPONIN-I (test code=TROPI) ng/mL 0-0.045 CBC W/AUTO [id number] 12:57:00* Test Item Value Reference Range Comments WHITE BLOOD CELL (test code=WBC) K/mm3 4.5-12.5 RED BLOOD CELL (test code=RBC) mill/mm3 3.7-5.2 HEMOGLOBIN (test code=HGB) gram/dL 11.5-15.5 HEMATOCRIT (test code=HCT) 37.5 % 36.0-46.0 MEAN CELL VOLUME (test code=MCV) fL 80-98 MEAN CELL HGB (test code=MCH) picogram 27.0-33.0 MEAN CELL HGB CONCETRATION (test code=MCHC) gram/dL 33.0-36.0 RED CELL DISTRIBUTION WIDTH (test code=RDW) % 11.6-16.2 RED CELL DISTRIBUTION WIDTH SD (test code=RDW-SD) fL 37.0-51.0 PLATELET COUNT (test code=PLT) K/mm3 150-450 MEAN PLATELET VOLUME (test code=MPV) fL 6.7-11.0 NEUTROPHIL % (test code=NT%) % 39.0-69.0 IMMATURE GRANULOCYTE % (test code=IG%) % 0.0-5.0 LYMPHOCYTE % (test code=LY%) % 25.0-55.0 MONOCYTE % (test code=MO%) % 0.0-10.0 EOSINOPHIL % (test code=EO%) % 0.0-5.0 BASOPHIL % (test code=BA%) % 0.0-1.0 NEUTROPHIL # (test code=NT#) K/mm3 1.8-7.7 LYMPHOCYTE # (test code=LY#) K/mm3 1.0-5.0 MONOCYTE # (test code=MO#) K/mm3 0-0.8 EOSINOPHIL # (test code=EO#) K/mm3 0.0-0.5 BASOPHIL # (test code=BA#) K/mm3 0.0-0.2 CBC W/AUTO [id number] 12:57:00* Test Item Value Reference Range Comments WHITE BLOOD CELL (test code=WBC) 13.8 K/mm3 4.5-12.5 RED BLOOD CELL (test code=RBC) 4.86 mill/mm3 3.7-5.2 HEMOGLOBIN (test code=HGB) 10.9 gram/dL 11.5-15.5 HEMATOCRIT (test code=HCT) 37.5 % 36.0-46.0 MEAN CELL VOLUME (test code=MCV) 77.2 fL 80-98 MEAN CELL HGB (test code=MCH) 22.4 picogram 27.0-33.0 MEAN CELL HGB CONCETRATION (test code=MCHC) 29.1 gram/dL 33.0-36.0 RED CELL DISTRIBUTION WIDTH (test code=RDW) 20.7 % 11.6-16.2 RED CELL DISTRIBUTION WIDTH SD (test code=RDW-SD) 56.4 fL 37.0-51.0 PLATELET COUNT (test code=PLT) 392 K/mm3 150-450 MEAN PLATELET VOLUME (test code=MPV) 9.8 fL 6.7-11.0 NEUTROPHIL % (test code=NT%) 74.7 % 39.0-69.0 IMMATURE GRANULOCYTE % (test code=IG%) 0.7 % 0.0-5.0 LYMPHOCYTE % (test code=LY%) 18.2 % 25.0-55.0 MONOCYTE % (test code=MO%) 4.1 % 0.0-10.0 EOSINOPHIL % (test code=EO%) 2.0 % 0.0-5.0 BASOPHIL % (test code=BA%) 0.3 % 0.0-1.0 NUCLEATED RBC % (test code=NRBC%) 0.0 % 0-0 NEUTROPHIL # (test code=NT#) 10.30 K/mm3 1.8-7.7 IMMATURE GRANULOCYTE # (test code=IG#) 0.09 x10 3/uL 0-0.03 LYMPHOCYTE # (test code=LY#) 2.50 K/mm3 1.0-5.0 MONOCYTE # (test code=MO#) 0.57 K/mm3 0-0.8 EOSINOPHIL # (test code=EO#) 0.27 K/mm3 0.0-0.5 BASOPHIL # (test code=BA#) 0.04 K/mm3 0.0-0.2 NUCLEATED RBC # (test code=NRBC#) 0.00 K/mm3 0.0-0.1 MANUAL DIFF REQUIRED (test code=MDIFF) NO Sodium Srljs1172-38-88 10:42:00* Test Item Value Reference Range Comments Sodium Level (test prer=1341-6) 136 136-145 Potassium Rkwwy3846-77-09 10:42:00* Test Item Value Reference Range Comments Potassium Level (test ghqp=7239-9) 4.3 3.5-5.1 Chloride Jltff1967-42-41 10:42:00* Test Item Value Reference Range Comments Chloride Level (test jccv=8014-5) 107 98-107 Carbon Dioxide Mcetw4453-74-07 10:42:00* Test Item Value Reference Range Comments Carbon Dioxide Level (test idyw=4651-4) 20 22-29 Anion Fxn3844-15-87 10:42:00* Test Item Value Reference Range Comments Anion Gap (test dwce=19994-1) 13.3 8-16 Blood Urea Jvurojnz2438-86-34 10:42:00* Test Item Value Reference Range Comments Blood Urea Nitrogen (test ueps=0153-9) 19 7-26 Digmwkgxkd1845-50-19 10:42:00* Test Item Value Reference Range Comments Creatinine (test ksxl=1780-0) 0.71 0.57-1.11 BUN/Creatinine Jroli3783-81-16 10:42:00* Test Item Value Reference Range Comments BUN/Creatinine Ratio (test jlxg=7470-6) 27 6-25 Estimat Glomerular Filtration Fcwa8267-48-49 10:42:00* Test Item Value Reference Range Comments Estimat Glomerular Filtration Rate (test jnld=168333274) > 60 >60 Ranges were taken from the National Kidney Disease Education Program and the [facility] literature.Reference ranges:60 or greater: Brksym95-57 ( for 3 consecutive months): Chronic kidney disease 15 or less: Kidney failure Glucose Jqued9062-93-62 10:42:00* Test Item Value Reference Range Comments Glucose Level (test sovw=JVE0529) 87 74-118 Calcium Tgvda3538-60-56 10:42:00* Test Item Value Reference Range Comments Calcium Level (test xxxe=10666-3) 9.4 8.4-10.2 Total Ugjsbomql8053-24-64 10:42:00* Test Item Value Reference Range Comments Total Bilirubin (test shty=6170-4) 0.3 0.2-1.2 Aspartate Amino Transf (AST/SGOT)2018-09-12 10:42:00* Test Item Value Reference Range Comments Aspartate Amino Transf (AST/SGOT) (test code=Aspartate Amino Transf (AST/SGOT)) 13 5-34 Alanine Aminotransferase (ALT/SGPT)2018-09-12 10:42:00* Test Item Value Reference Range Comments Alanine Aminotransferase (ALT/SGPT) (test baom=0377-1) 18 0-55 Total Kvzqauj7993-42-68 10:42:00* Test Item Value Reference Range Comments Total Protein (test jxkr=2341-3) 7.4 6.5-8.1 Qbrghze1961-84-02 10:42:00* Test Item Value Reference Range Comments Albumin (test togx=2600-7) 3.5 3.5-5.0 Uadafukk2160-16-14 10:42:00* Test Item Value Reference Range Comments Globulin (test htun=66430-6) 3.9 2.3-3.5 Albumin/Globulin Onrab9468-46-65 10:42:00* Test Item Value Reference Range Comments Albumin/Globulin Ratio (test uqxd=9159-3) 0.9 0.8-2.0 Alkaline Odzneuogpqx6915-13-43 10:42:00* Test Item Value Reference Range Comments Alkaline Phosphatase (test bwvo=4305-2) 124 40-150 White Blood Uanyd1197-16-44 10:09:00* Test Item Value Reference Range Comments White Blood Count (test rcra=9097-2) 10.26 4.8-10.8 Red Blood Zrxnq9397-52-99 10:09:00* Test Item Value Reference Range Comments Red Blood Count (test iqfp=741-5) 4.46 3.6-5.1 Kjlrrerbvc0225-48-55 10:09:00* Test Item Value Reference Range Comments Hemoglobin (test mafn=87618-7) 9.2 12.0-16.0 Previous lab work March 2018. 1009 on 09/12/18 by Georgie Owen 2018-09-12 10:09:00* Test Item Value Reference Range Comments Hematocrit (test sktg=5945-9) 31.7 34.2-44.1 Mean Corpuscular Dwpygr8436-79-17 10:09:00* Test Item Value Reference Range Comments Mean Corpuscular Volume (test aofa=149-9) 71.1 81-99 Mean Corpuscular Odwlchltze6635-27-75 10:09:00* Test Item Value Reference Range Comments Mean Corpuscular Hemoglobin (test iekj=116-8) 20.6 28-32 Mean Corpuscular Hemoglobin Qvglycy1500-20-56 10:09:00* Test Item Value Reference Range Comments Mean Corpuscular Hemoglobin Concent (test gafr=457-4) 29.0 31-35 Red Cell Distribution Iwgww7777-53-11 10:09:00* Test Item Value Reference Range Comments Red Cell Distribution Width (test zghh=51808-6) 19.9 11.7-14.4 Platelet Xysdo7858-57-71 10:09:00* Test Item Value Reference Range Comments Platelet Count (test csau=911-8) 407 140-360 Neutrophils (%) (Auto)2018-09-12 10:09:00* Test Item Value Reference Range Comments Neutrophils (%) (Auto) (test ncfm=27072-4) 67.1 38.7-80.0 Lymphocytes (%) (Auto)2018-09-12 10:09:00* Test Item Value Reference Range Comments Lymphocytes (%) (Auto) (test gblm=884-2) 24.3 18.0-39.1 Monocytes (%) (Auto)2018-09-12 10:09:00* Test Item Value Reference Range Comments Monocytes (%) (Auto) (test bsyh=1287-6) 5.5 4.4-11.3 Eosinophils (%) (Auto)2018-09-12 10:09:00* Test Item Value Reference Range Comments Eosinophils (%) (Auto) (test kgam=769-1) 2.3 0.0-6.0 Basophils (%) (Auto)2018-09-12 10:09:00* Test Item Value Reference Range Comments Basophils (%) (Auto) (test gqrp=745-0) 0.3 0.0-1.0 IM GRANULOCYTES %2018-09-12 10:09:00* Test Item Value Reference Range Comments IM GRANULOCYTES % (test code=IM GRANULOCYTES %) 0.5 0.0-1.0 Neutrophils # (Auto)2018-09-12 10:09:00* Test Item Value Reference Range Comments Neutrophils # (Auto) (test ybed=234-9) 6.9 2.1-6.9 Lymphocytes # (Auto)2018-09-12 10:09:00* Test Item Value Reference Range Comments Lymphocytes # (Auto) (test sedj=12101-7) 2.5 1.0-3.2 Monocytes # (Auto)2018-09-12 10:09:00* Test Item Value Reference Range Comments Monocytes # (Auto) (test qjpo=123-4) 0.6 0.2-0.8 Eosinophils # (Auto)2018-09-12 10:09:00* Test Item Value Reference Range Comments Eosinophils # (Auto) (test nqdk=943-3) 0.2 0.0-0.4 Basophils # (Auto)2018-09-12 10:09:00* Test Item Value Reference Range Comments Basophils # (Auto) (test wdly=037-1) 0.0 0.0-0.1 Absolute Immature Granulocyte (jwka2018-19-87 10:09:00* Test Item Value Reference Range Comments Absolute Immature Granulocyte (auto (test code=Absolute Immature Granulocyte (auto) 0.05 0-0.1 Urine OHD3175-58-20 09:44:00* Test Item Value Reference Range Comments Urine WBC (test bsyb=0658-0) NONE 0-5 Urine PLI6080-64-62 09:44:00* Test Item Value Reference Range Comments Urine RBC (test ibsk=84111-8) NONE 0-5 Urine Mtdtbuhi6591-02-91 09:44:00* Test Item Value Reference Range Comments Urine Bacteria (test xvpp=11502-7) RARE NONE Urine Epithelial Zkgcu1788-03-60 09:44:00* Test Item Value Reference Range Comments Urine Epithelial Cells (test fxtq=46896-3) RARE NONE Urine Zakb5101-78-08 09:29:00* Test Item Value Reference Range Comments Urine Test (test jdip=8351-4) NEGATIVE NEGATIVE Urine Zcjww3953-64-68 09:27:00* Test Item Value Reference Range Comments Urine Color (test rhoc=0267-2) YELLOW YELLOW Urine Myjntdl9649-71-86 09:27:00* Test Item Value Reference Range Comments Urine Clarity (test immh=11885-9) CLEAR CLEAR Urine Specific Bceidjc1823-85-31 09:27:00* Test Item Value Reference Range Comments Urine Specific [place] (test xtdl=8275-8) 1.005 1.010-1.025 Urine bL7514-70-38 09:27:00* Test Item Value Reference Range Comments Urine pH (test fndl=52936-4) 6 5-7 Urine Leukocyte Icspokfs2509-29-34 09:27:00* Test Item Value Reference Range Comments Urine Leukocyte Esterase (test cjbd=0990-5) NEGATIVE NEGATIVE Urine Wmragir4351-39-74 09:27:00* Test Item Value Reference Range Comments Urine Nitrite (test ogme=72450-4) NEGATIVE NEGATIVE Urine Cpqeedn3788-22-38 09:27:00* Test Item Value Reference Range Comments Urine Protein (test adgs=9930-3) NEGATIVE NEGATIVE Urine Glucose (UA)2018-09-12 09:27:00* Test Item Value Reference Range Comments Urine Glucose (UA) (test djau=3446-2) NEGATIVE NEGATIVE Urine Rplttww1501-92-89 09:27:00* Test Item Value Reference Range Comments Urine Ketones (test myix=56099-2) 1+ NEGATIVE Urine Affpmuvknqvv6027-27-80 09:27:00* Test Item Value Reference Range Comments Urine Urobilinogen (test worx=46869-0) 0.2 0.2-1 Urine Crsuuwrlp8262-18-56 09:27:00* Test Item Value Reference Range Comments Urine Bilirubin (test fdzi=1286-5) NEGATIVE NEGATIVE Urine Grryd7712-99-40 09:27:00* Test Item Value Reference Range Comments Urine Blood (test bqyq=08224-7) NEGATIVE NEGATIVE ELBOW LEFT RKYOYSVE4373-18-42 07:43:00 [place] [address] Patient Name: ROSITA MCGHEE MR #: [id number] : 1960 Age/Sex: 57/F Req #: [id number] Adm Physician: Ordered by: BHAVANI ELLISON MD Report #: [id number] Location: ER Room/Bed: Procedure: [id number] DX/ELBOW LEFT COMPLETE Exam Date: 05/15/18 Exam Time: [address] ATUS: Signed PROCEDURE: X-RAY LEFT ELBOW, COMPLETE COMPARISON: None . INDICATIONS: FALL, ELBOW PAIN FINDINGS: No acute, displaced fracture or dislocation. Lateral radiograph shows no evidence of joint effus ion. Soft tissues are unremarkable. CONCLUSION: No acute osseous a bnormality. Dictated by: Юлия Butler M.D. on 05/15/2018 at 7:43 Electr onically approved by: Юлия Butler M.D. on 05/15/2018 at 7:43 Dict ated By: ЮЛИЯ BUTLER MD [id number] COPY TO: BHAVANI ELLISON MD HIP LEFT 2-3 VW (+/- PELVIS)2018-05-15 07:36:00 [facility] [address] [place] [address] Patient Name: ROSITA MCGHEE MR #: [id number] : 1960 Age/Sex: 57/F Req #: [id number] Adm Physician: Ordered by: BHAVANI ELLISON MD Report #: [id number] Location: ER Room/Bed: Procedure: [id number] DX/HIP LEFT 2-3 VW (+/ - PELVIS) Exam Date: Exam Time: REPORT STATU S: Signed PROCEDURE: HIP LEFT 2-3 VW (+/- PELVIS) COMPARISON: None. INDICATIONS: S/P FALL FINDINGS: No acute, displaced fracture or dislocation. The femoral head projects appropriately over the acetabulum. The joint space is well maintained. Soft tissues are unremarkable. Multiple pelvic phleboliths. CONCLUSION: no acute osseous abnormality. Dictated by: Юлия Butler M.D. on 05/15/2018 at 7:36 Electronically approved by: Юлия Butler M.D. on 05/15/2018 at 7:36 Dictated By: ЮЛИЯ BUTLER MD T ranscribed By: JASWANT on 05/15/18735 COPY TO: BHAVANI ELLISON MD SHOULDER RIGHT [id number] 07:34:00 [place] [id number] [place] [address] Patient Name: ROSITA MCGHEE MR #: [id number] : 1960 Age/Sex: 57/F Req #: [id number] Adm Physician: Ordered by: BHAVANI ELLISON MD Report #: [id number] Location: ER Room/Bed: Procedure: DX/SHOULDER RIGHT COMP LETE Exam Date: 05/15/18 Exam Time: 06 REPOR T STATUS: Signed PROCEDURE: X-RAY RIGHT SHOULDER, COMPLETE COMPARISON : None. INDICATIONS: s/p fall FINDINGS: No acute, displaced fracture or dislocation. The humeral head projects appropriately adjacent to the glenoid. Acromioclavicular and glenohumeral joint spaces are well-mainta ined. Soft tissues are unremarkable. CONCLUSION: No acute osseous abno rmality Dictated by: Юлия Butler M.D. on 05/15/2018 at 7:34 Electronic ally approved by: Юлия Butler M.D. on 05/15/2018 at 7:34 Dictated By: ЮЛИЯ BUTLER MD 07 34 Transcribed By: JASWANT on 05/15/18 0734 COPY TO: BHAVANI ELLISON MD SHOULDER LEFT [id number] 07:33:00 [place] [address] Patient Name: ROSITA MCGHEE MR #: [id number] : 1960 Age/Sex: 57/F Req #: [id number] Adm Physician: Ordered by: BHAVANI ELLISON MD Report #: [id number] Location: ER Room/Bed: Procedure: DX/SHOULDER LEFT COMPL ETE Exam Date: 05/15/18 Exam Time: 0700 REPORT STATUS: Signed PROCEDURE: X-RAY LEFT SHOULDER, COMPLETE COMPARISON: None. INDICATIONS: s/p fall FINDINGS: No acute, displaced f racture or dislocation. The humeral head projects appropriately adjacent to t he glenoid. Small spur along the lateral margin of the acromion. Joint spaces are otherwise well-maintained. No gross soft tissue abnormalities. CONCLUS ION: No acute osseous abnormality. Dictated by: Юлия Butler M.D. on 05/15/2018 at 7:33 Electronically approved by: Юлия Butler M.D. on 2017 at 7:33 Dictated By: ЮЛИЯ BUTLER MD 2 Transcribed By: JASWANT on 05/15/1833 COPY TO: BHAVANI ELLISON MD HAND 3+ VIEWS [id number] 07:32:00 [place] [address] Patient Name: ROSITA MCGHEE MR #: [id number] D OB: 1960 Age/Sex: 57/F Req #: [id number] Adm Physic radha: Ordered by: BHAVANI ELLISON MD Report #: [id number] Location: ER Room/Bed: Procedure: DX/HAND 3+ VIEWS LEFT Exam Date: 05/15/18 Exam Time: 0656 REPORT STA TUS: Signed PROCEDURE: X-RAY LEFT HAND, THREE OR MORE VIEWS COMPARISO N: None. INDICATIONS: s/p fall FINDINGS: No acute, displace d fracture or dislocation. Joint spaces are well-maintained. Soft tissues are unremarkable. CONCLUSION: No acute osseous abnormalities. Dictated by: Юлия Butler M.D. on 05/15/2018 at 7:32 Electronically approved by: Юлия Butler M.D. on 05/15/2018 at 7:32 Dictated By: ЮЛИЯ BUTLER MD 1 Transcribed By: IN FCE on 05/15/18731 COPY TO: BHAVANI ELLISON MD CT ABDOMEN/PELVIS [id number] 13:34:00 [place] [address] Patient Name: ROSITA MCGHEE MR #: [id number] : 1960 Age/Sex: 57/F Req #: [id number] Adm Physician: Ordered by: VERONICA ROCHE JEWEL SORTER Report #: [id number] Location: ER Room/Bed: Procedure: [id number] CT/CT ABDOMEN/PELVIS E xam Date: 03/26/18 Exam Time: 1300 REPORT STATU S: Signed CT Abdomen and Pelvis without contrast INDICATION: Right flan k pain TECHNIQUE: Thin collimation axial images obtained from the diaphragm to the level of the pubic symphysis without nonionic intravenous contrast. RADIATION DOSE: Total DLP: 667.1 mGy*cm Estimated effective do se: (DLP x 0.015 x size factor) mSv CTDIvol has been reviewed. It is belo w the limits set by the Radiation Protocol Committee (RPC). COMPARISON: C T abdomen/pelvis 02/01/2018. ABDOMEN FINDINGS: Lung Bases: Clear. The visualized portion of the mediastinum is normal. Liver: Decreased attenuati on. No evidence of mass. Gallbladder: Absent. No ductal dilatation. P ancreas: Normal attenuation without mass. Spleen: Normal size without mass. Adrenal Glands: No evidence for mass. Kidneys: Right: No renal brendan culus. No cortical mass or hydronephrosis. Mild perinephric inflammation is s table. Left: No renal calculus. No cortical mass or hydronephrosis. Mild perinephric inflammation is stable. Lymph Nodes: No enlarged abdominal or periaortic lymph nodes. Aorta: Normal in diameter. PELVIS FINDINGS: Bowel: Stomach: Postoperative changes of the stomach are stable. There is fluid and fluid in the distal stomach. Small Bowel: Normal in caliber wi th normal wall thickness. Large Bowel: Scattered diverticula in the left colon without associated inflammation. No large bowel dilatation. Appendix: Not v isualized and may be absent or collapsed. Bladder: Well distended and tyree l. Ureters: No ureteral dilatation or calculus. The uterus is absent. No adnexal mass. No free fluid or fluid collection. Left upper quadrant ladarius gical clips are stable. Bones: Mild degenerative changes of the spine. No compression deformities. Bone island in the right issue tuberosity is stable. No destructive lesions. Soft tissues: Calcification or surgical clip in the anterior abdominal wall is stable. IMPRESSION: 1. No evidence of renal calculus or obstructive uropathy. 2. No evidence for bowel obstruct ion or inflammation. 3. Stable postoperative changes of the upper abdomen. 4. Hepatic steatosis. Signed by: Dr. Alyssa Wilson MD on 03/26/2018 1:41 PM Dictated By: ALYSSA WILSON MD 1341 Transcribed By: CAROLYN on 03/26/18 1341 COPY TO: VERONICA ROCHE NP Creatine Kinase [id number] 23:10:00* Test Item Value Reference Range Comments Creatine Kinase MB (test lewb=84197-1) 0.70 0-5.0 Troponin [id number] 23:10:00* Test Item Value Reference Range Comments Troponin I (test jclr=RAA7112) < 0.001 0-0.300 CHEST SINGLE (PORTABLE)2018-02-01 23:07:00 [place] [address] Patient Name: ROSITA MCGHEE MR #: [id number] : 1960 Age/Sex: 57/F Req #: [id number] Adm Physician: Ordered by: LAVERN HYLTON MD Report #: [id number] Location: ER Room/Bed: Procedure: [id number] DX/CHEST SINGLE (PORTABLE) Exam Date: Exam Time: REPORT STATUS: Signed EXAM: CHEST SINGLE (PORTABLE), AP 1 view INDICATION: Abdominal pain COMP ARISON: CT of the abdomen and pelvis February 01, 2018 FINDINGS: LINES/TUBES: None LUNGS: No consolidations or edema. PLEURA: No effusions or pneu mothorax. HEART AND MEDIASTINUM: Normal size and contour. BONES AND SO FT TISSUES: No acute findings. Surgical clips left upper quadrant of the abdom en. IMPRESSION: No acute thoracic abnormality. Signed by: Dr. Russ Braun M.D. on 02/01/2018 11:08 PM Dictated By: RUSS BRAUN MD 07 Transcribed By: CAROLYN on 02/01/182307 COPY TO: LAVERN HYLTON MD Magnesium [id number] 23:01:00* Test Item Value Reference Range Comments Magnesium Level (test tyvh=66361-7) 1.5 1.3-2.1 Creatine Dwdmvd0489-41-68 23:01:00* Test Item Value Reference Range Comments Creatine Kinase (test dfhs=9489-9) 91 29-168 Amylase Qxiiy7047-14-30 23:01:00* Test Item Value Reference Range Comments Amylase Level (test jlsn=2395-3) 189 25-125 Jqtrip5477-90-79 23:01:00* Test Item Value Reference Range Comments Lipase (test xskr=8406-0) 117 8-78 CT ABDOMEN/PELVIS [id number] 22:57:00 [place] [address] Patient Name: ROSITA MCGHEE MR #: [id number] : 1960 Age/Sex: 57/F Req #: [id number] Adm Physician: Ordered by: LAVERN HYLTON MD Report #: [id number] Location: ER Room/Bed: Procedure: [id number] CT/CT ABDOMEN/PELVIS Date: Exam Time: REPORT STATUS: Signed EXAM: CT ABDOMEN AND PELVIS without IV CONTRAST INDICATION: Abdominal pain, nausea, history of kidney stones, bilateral flank pain COMPARISON: CT of abdomen and pelvis December 12, 2016 TECHNIQUE: The abdomen and pelvis were sca nned using a multidetector helical scanner. Coronal and sagittal reformations were obtained. Renal stone protocol performed. IV Contrast: None Oral Cont rast: None CTDIvol has been reviewed. It is below the limits set by the Radiat ion Protocol Committee (RPC). FINDINGS: LOWER THORAX: No consolidations LIVER: No masses BILIARY: Normal gallbladder. No ductal dilation. SPLEEN: No masses PANCREAS: No masses ADRENALS: No nodules RIGHT KID SADAF: No nephroureterolithiasis or hydronephrosis. Stable mild perinephric fat stranding. LEFT KIDNEY: No nephroureterolithiasis or hydronephrosis. Stable mild perinephric fat stranding. GI TRACT: No wall thickening or obstruc tion. Nonspecific debris in the stomach. Mild sigmoid colon diverticulosis wit hout CT findings of diverticulitis. VESSELS: Unremarkable PERITONEUM /RETROPERITONEUM: No free air or fluid. Surgical clips left upper abdomen. L YMPH NODES: No lymphadenopathy REPRODUCTIVE ORGANS: The uterus and ovaries are not visualized. BLADDER: Normal SOFT TISSUES: Stable subcentimeter no dules along the left anterior chest wall, likely intramammary lymph nodes. B ONES: No suspicious bone lesions. IMPRESSION: No acute findings. Sig jerry by: Dr. Russ Braun M.D. on 02/01/2018 11:07 PM Dictated By: FLORENTINO BRAUN MD 06 Tra nscribed By: CAROLYN on 02/01/182306 COPY TO: LAVERN HYLTON MD Prothrombin [id number] 22:42:00* Test Item Value Reference Range Comments Prothrombin Time (test hbpl=2297-4) 12.1 11.9-14.5 Prothromb Time International Osowz7797-32-31 22:42:00* Test Item Value Reference Range Comments Prothromb Time International Ratio (test kmix=4379-9) 0.97 Oral Anticoagulant Therapy INR Values:1. Low Intensity Therapy 1.5 - 2.02 . Moderate Intensity Therapy 2.0 - 3.03. High Intensity Therapy(1) 2.5 - 3. 54. High Intensity Therapy(2) 3.0 - 4.05. Panic Value INR > 5.0 Activated Partial Thromboplast Dawv9520-10-43 22:42:00* Test Item Value Reference Range Comments Activated Partial Thromboplast Time (test uzdw=50934-0) 31.4 23.8-35.5 D-Dimer Quantitative (PE/DVT)2017-12-02 16:27:00* Test Item Value Reference Range Comments D-Dimer Quantitative (PE/DVT) (test vbxy=23834-3) 0.72 0.00-0.45 As with all in vitro diagnostic tests, the test results should be interpreted by the physician in conjunction with clinical findings and other test results.Test results are reported in NEW D-dimer units(ug/mLFEU).Thyroid Stimulating Hormone (TSH)2017-12-02 15:38:00* Test Item Value Reference Range Comments Thyroid Stimulating Hormone (TSH) (test tjnr=02515-9) 0.383 0.350-4.[address] [facility] [address] [place] [address] Patient Name: ROSITA MCGHEE MR #: [id number] : 1960 Age/Sex: 57/F Req #: [id number] Adm Physician: Ordered by: DOROTHEA CHRISTIANSON JEWEL SORTER Report #: [id number] Location: ER Room/Bed: Procedure: [id number] CT/CT CHEST W Exam Date : 12/02/17 Exam Time: 1840 REPORT STATUS: Lorenza d PROCEDURE: CT scan of the chest WITH intravenous contrast, using standar d protocol. TECHNIQUE: The chest was scanned utilizing a multidetecto r helical scanner from the lung apex through the level of the adrenal glands after the IV administration of 100cc of Isovue 370. Coronal and sagittal multiplanar reformations were obtained. DLP: 468.30 mGy-cm COMPARISO N: Chest CT dated 08/08/17 INDICATIONS: CHEST PAIN FINDINGS: L ori/tubes: None. Lungs and Airways: Tiny nonobstructive filling defect w ithin a right upper lobe subsegmental artery (series 2, image 27) is less li delfina to present embolism. No other filling defects identified to the segmenta l level. The lungs and airways are normal with no focal abnormality demons trated. Pleura: The pleural spaces are clear. Heart and mediastinum : The thyroid gland is normal. No significant mediastinal, hilar or axillary lymphadenopathy is seen. The heart and pericardium are within normal limits. Soft tissues: Normal. Abdomen: Unremarkable. Evidence of prior gastr ic surgery or banding. Bones: The visualized bony thorax is within normal limits. IMPRESSION: Tiny nonobstructive filling defect within a right upper lobe subsegmental artery, which is less likely to represent embolism. N o other filling defects identified to the segmental level. Recommend atten tion on followup examination or if there is high clinical concern for pulmona ry embolism VQ scan can be obtained to further evaluate. Dr. Davison was no tified at 7:10 PM on 12/02/2017 Dictated by: Jenni Guadalupe M.D. o n 12/02/2017 at 19:11 Electronically approved by: Jenni Guadalupe M.D. on 12/02/2017 at 19:11 Dictated By: JENNI GUADALUPE MD Electronical ly Signed By: JENNI GUADALUPE MD on 12/02/171911 Transcribed By: JASWANT on 1911 COPY TO: DOROTHEA CHRISTIANSON JEWEL SORTER CHEST SINGLE (PORTABLE) [place] [address] Patient Name: ROSITA MCGHEE MR #: [id number] : 1960 Age/Sex: 57/F Req #: [id number] Adm Physician: Ordered by: DOROTHEA CHRISTIANSON JEWEL SORTER Report #: [id number] Location: ER Room/Bed: Procedure: [id number] DX/CHEST SINGLE (GERMAN BLE) Exam Date: 12/02/17 Exam Time: 1526 REPOR T STATUS: Signed PROCEDURE: A single AP view of the chest. COMPARISON : Chest CT dated 08/08/17 INDICATIONS: CHEST PAIN, PRESSURE FINDINGS: Lines/tubes: None. Lungs: Limited by low lung volumes and b emy habitus. There is no evidence of pneumonia or pulmonary edema. Pleu ra: There is no pleural effusion or pneumothorax. Heart and mediastinum: Prominent cardiomediastinal silhouette on this AP view. Bones: No acut e bony abnormality. IMPRESSION: 1. No acute cardiopulmonary diseas e. Dictated by: Jenni Guadalupe M.D. on 12/02/2017 at 15:41 Electron ically approved by: Jenni Guadalupe M.D. on 12/02/2017 at 15:41 Dictated By: JENNI GUADALUPE MD 40 COPY TO: TEJAS CHRISTIANSON JEWEL SORTER CT SOFT TISSUE NECK WO [place] [address] Patient Name: ROSITA MCGHEE MR #: [id number] : 1960 Age/Sex: 56/F Req #: [id number] Adm Physician: CRYSTAL CORBIN MD Ordered by: ANTONIO SHERMAN MD Report #: [id number] Location: MED/SURG2 [facility] Procedure : [id number] CT/CT SOFT TISSUE NECK WO Exam Date: 08/08/17 Exam Time: 2024 REPORT STATUS: Signed History: Foreign body sensa tion in the esophagus, history of prior gastric banding procedure. Compar moe studies: X-ray soft tissues of the neck from 08/08/2017. Technique: Axial images were obtained from the skull base to the thoracic inlet. Coronal and sagittal images reconstructed from the axial data. Intravenous contrast: None Findings: Evaluation of the neck is limited due to the absence of intravenous contrast. In spite of this limitation, Soft tissues: No abnormalities. No radiopaque foreign body. Visualized portion of the upper esophagus is unremarkable. Lymph nodes: No radiographically significant adenopathy. Vessels: Cannot evaluate. Glands (thyroid, parotid and submandibular): Normal in size and symmetric. No masses. Orbits: No abn ormalities. Paranasal sinuses: Mild mucosal thickening in left maxillary sinus with an air-fluid level. Temporal bones: No abnormalities. Skull base and facial bones: Intact. Cervical spine: C3-C4: Posterior disc osteophyte complex results in mild canal stenosis. Mild left foraminal stenosis due to f acet and uncovertebral arthrosis. C4-C5: Mild left foraminal stenosis due to f acet and uncovertebral arthrosis. C5-C6: Moderate right foraminal stenosis due to facet and uncovertebral arthrosis. IMPRESSION: No acute abnormal ity, particularly no radiopaque foreign body. Signed by: Dr. Karen abrams M.D. on 08/08/2017 9:32 PM Dictated By: KAREN HEALY MD Electronic ally Signed By: KAREN HEALY MD on 08/08/172131 Transcribed By: CAROLYN on 08/08/172131 COPY TO: ANTONIO SHERMAN MD CT CHEST [place] [address] Patient Name: ROSITA MCGHEE MR #: [id number] : 1960 Age/Sex: 56/F Req #: [id number] Adm Physician: CRYSTAL CORBIN MD Ordered by: ANTONIO SHERMAN MD Report #: [id number] Location: MED/SURG2 [facility] Procedure : [id number] CT/CT CHEST WO Exam Date: 08/08/17 Exam Time: 2024 REPORT STATUS: Signed EXAM: CT CHEST WO DATE: 08/08/2017 7 :41 PM Time stamp on exam: 2033 hours INDICATION: Foreign body in chest, pre vious gastric banding/ring, food bolus lodged in esophagus COMPARISON: Soft tissue neck x-ray August 08, 2017 TECHNIQUE: Multidetector CT scanning of t he chest was performed. Coronal and sagittal multiplanar reformations were ob tained. Routine protocol performed. IV Contrast: None CTDIvol has been revie wed. It is below the limits set by the Radiation Protocol Committee (RPC). FINDINGS: LUNGS AND AIRWAYS: The trachea and major bronchi are unremarkable. No consolidations or edema. PLEURA: No effusions or pneumothorax. HEART, MEDIASTINUM, VESSELS: The heart is within normal size limits. No abnorm al pericardial effusion. No thoracic aortic aneurysm. No mediastinal mass or h ematoma. UPPER ABDOMEN: Within the distal esophagus just proximal to the gastroesophageal junction there is an approximately 4 x 3 cm filling defect co nsistent with reported history of food lodged in esophagus. There are surgical changes around the proximal stomach consistent with reported history of gastr ic banding. MUSCULOSKELETAL: No acute findings. IMPRESSION: Food bert us measuring approximately 4 x 3 cm is seen in the distal esophagus, just prox imal to the gastroesophageal junction. There is no free mediastinal air or flu id to suggest perforation. Signed by: Dr. Russ Braun M.D. on 08/08/2017 9:05 PM Dictated By: RUSS BRAUN MD 04 Transcribed By: CAROLYN on 08/08/172104 COPY TO: ANTONIO SHERMAN MD CHEST SINGLE (NOT PORTABLE) [place] [address] Patient Name: ROSITA MCGHEE MR #: [id number] : 1960 Age/Sex: 56/F Req #: [id number] Adm Physician: CRYSTAL CORBIN MD Ordered by: FELICITAS CUTLER MD Report #: [id number] Location: MED/SURG2 Room/Bed: Procedure: [id number] [id number] DX/CHEST SINGLE (NOT PORTABLE) Exam Date: 08/08/17 Exam Time: 1845 REPORT STATUS: Signed EXAMINATION: CHEST SINGLE (NOT PORTABLE) 08/08/2017 6:28 PM COMPARISON: None INDICATION: Foreign body stuck in throat DISCUSSION: LINES: None. LUNGS: The beti ngs are well inflated and clear. No pneumonia or pulmonary edema. PLEURA: No pleural effusion or pneumothorax. HEART AND MEDIASTINUM: The cardiomedi astinal silhouette is unremarkable. BONES AND SOFT TISSUES: No acute osseo us lesion. There are postsurgical changes at the gastroesophageal junction. IMPRESSION: Postsurgical changes of the gastroesophageal junction. No r adiopaque foreign bodies are identified. Massimo Sarah MD Signed by : Dr. Massimo Sarah M.D. on 08/08/2017 7:39 PM Dictated By: MASSIMO NICK MD 38 [place] scribed By: CAROLYN on 08/08/171938 COPY TO: FELICITAS CUTLER MD NECK SOFT TISSUE [place] [address] Patient Name: ROSITA MCGHEE MR #: [id number] : 1960 Age/Sex: 56/F Req #: [id number] [facility] Physician: CRYSTAL CORBIN MD Ordered by: FELICITAS CUTLER MD Report #: [id number] Location: MED/SURG2 [facility]: [facility] Procedure: [id number] [id number] DX/NECK SOFT TISSUE Exam Date: 08/08/17 Exam Hermilo e: 1845 REPORT STATUS: Signed EXAMINATION: NECK SOFT TISSUE 017 6:28 PM COMPARISON: None INDICATION: Food stuck in throat DISCUSSION: 2 views of the soft tissues of the neck (AP and lateral) S ee impression IMPRESSION: No radiopaque foreign body in the soft tissues of the neck. Massimo Sarah MD Signed by: Dr. Massimo Sarah M.D. on 08/08/2017 7:57 PM Dictated By: MASSIMO SARAH MD Electronically Si gned By: MASSIMO SARAH MD on 08/08/171956 Transcribed By: CAROLYN on 1956 COPY TO: FELICITAS CUTLER MD
== END | disposition home or self-care (01) ==
LOC: ER 23:22
DX: L29.9 Pruritus, unspecified (principal); T78.40XA Allergy, unspecified, initial encounter; I10 Essential (primary) hypertension; E11.9 Type 2 diabetes mellitus without complications; F41.9 Anxiety disorder, unspecified; E78.5 Hyperlipidemia, unspecified
CPT/HCPCS: 99283

== ENCOUNTER 2019-12-29 09:23 | Emergency (ER) | payer OTHER ==
[~2019-12-29] VITALS: Ht 149.9 cm; Wt 82.6 kg
[~2019-12-29 09:23] MED LIST changes: -DIPHENHYDRAMINE HCL INJ 50 MG/ML VIAL IM ONE; -FAMOTIDINE 20 MG TAB PO ONE; -METHYLPREDNISOLONE SOD SUCC 125 MG/2ML VIAL IM ONE
--- OUTSIDE RECORDS SUMMARY | 2019-12-29 09:26 | XMS REPORT | Clinical Summary ---
Author Author [facility] Organization [facility] Address Unknown Phone Unavailable Care Team Providers Care [facility] Name Role Phone PCP Unavailable Allergies Comments [...] Not on file Results Not on fileafter 12/28/2018
[2019-12-29 10:01] LABS: BASOPHILS # (AUTO) 0.1 (0.0-0.1); BASOPHILS % 0.4 % (0.0-1.0); EOSINOPHILS # (AUTO) 0.8 (0.0-0.4); EOSINOPHILS % 6.7 % (0.0-6.0); HEMATOCRIT 38.7 % (34.2-44.1); HEMOGLOBIN 11.5 g/dL (12.0-16.0); LYMPHOCYTES # (AUTO) 2.1 (1.0-3.2); LYMPHOCYTES % 18.3 % (18.0-39.1); MEAN CORPUSCULAR HEMOGLOBIN 24.4 pg (28-32); MEAN CORPUSCULAR HGB CONC 29.7 g/dL (31-35); MEAN CORPUSCULAR VOLUME 82.2 fL (81-99); MONOCYTES # (AUTO) 0.6 (0.2-0.8); MONOCYTES % 5.5 % (4.4-11.3); NEUTROPHILS # (AUTO) 7.8 (2.1-6.9); NEUTROPHILS % 68.7 % (38.7-80.0); PLATELET COUNT 392 x10e3/uL (140-360); RED BLOOD COUNT 4.71 x10e6/uL (3.6-5.1); RED CELL DISTRIBUTION WIDTH 14.8 % (11.7-14.4)
[2019-12-29 10:07] LABS: BILIRUBIN,URINE NEGATIVE (NEGATIVE); CLARITY,URINE CLEAR (CLEAR); COLOR,URINE COLORLESS (YELLOW); KETONES,URINE NEGATIVE (NEGATIVE); LEUKOCYTE ESTERASE ,URINE NEGATIVE (NEGATIVE); NITRITE,URINE NEGATIVE (NEGATIVE); PROTEIN,URINE DIPSTICK NEGATIVE (NEGATIVE); URINE UROBILINOGEN 0.2 mg/dL (0.2 - 1)
[2019-12-29 10:11] LABS: EPITHELIAL CELLS,URINE FEW /LPF; RBC,URINE 0-5 /HPF (0-5); WBC,URINE (MAN) 0-5 /HPF (0-5)
[2019-12-29] MEDS ORDERED: KETOROLAC TROMETHAMINE 30 MG/ML VIAL IV STA (10:13)
[2019-12-29 10:14] LABS: INR 0.88; PARTIAL THROMBOPLASTIN TIME 33.8 seconds (23.8-35.5); PROTHROMBIN TIME 12.5 seconds (11.9-14.5)
[2019-12-29 10:21] LABS: ALANINE AMINOTRANSFERASE 25 IU/L (0-55); ALBUMIN 3.7 g/dL (3.5-5.0); ALKALINE PHOSPHATASE 125 IU/L (40-150); ANION GAP 14.2 mmol/L (8-16); BLOOD UREA NITROGEN 11 mg/dL (7-26); BUN/CREATININE RATIO 16 (6-25); CALCIUM 9.9 mg/dL (8.4-10.2); CARBON DIOXIDE 25 mmol/L (22-29); CHLORIDE 105 mmol/L (98-107); CREATINE KINASE 86 IU/L (29-168); CREATININE, SERUM 0.69 mg/dL (0.57-1.11); EST GLOMERULAR FILTRATION RATE > 60 ML/MIN (60-); GLUCOSE 121 mg/dL (74-118); MAGNESIUM 1.7 MG/DL (1.3-2.1); POTASSIUM 4.2 mmol/L (3.5-5.1); SODIUM 140 mmol/L (136-145)
[2019-12-29] MEDS ORDERED: KETOROLAC TROMETHAMINE 30 MG/ML VIAL ONE (10:26)
[2019-12-29 10:44] LABS: ERYTHROCYTE SEDIMENTATION RATE 43 mm/hr (0-20)
--- NOTE | 2019-12-29 11:22 | Diagnostic Imaging Report ---
Examination: CT BRAIN WO CONTRAST History:Headache; vertigo. Comparison studies:None Technique: Axial images were obtained from the skull base to the vertex. Coronal and sagittal images reconstructed from the axial data. Dose modulation, iterative reconstruction, and/or weight based adjustment of the mA/kV was utilized to reduce the radiation dose to as low as reasonably achievable. Intravenous contrast: None Findings: Scalp: No abnormalities. Bones: No fractures, blastic or lytic lesions. Brain sulci: Appropriate for age. Ventricles: Normal in size and configuration. No hydrocephalus. Extra-axial space: No abnormalities. Parenchyma: There are subtle patchy areas of hypoattenuation in the periventricular and subcortical white matter, nonspecific. No masses, hemorrhage, or acute or chronic cortical based vascular insults.. Sellar/suprasellar region: No abnormalities. Craniocervical junction: Patent foramen magnum. No Chiari one malformation. Incidental findings: Atherosclerotic calcification of the cavernous and supraclinoid internal carotid and V4 segments of the bilateral vertebral arteries. Impression: No acute intracranial abnormalities. Chronic microvascular ischemic change. Signed by: Dr. Yue Christina M.D. on 12/29/2019 11:18 AM
[2019-12-29] MEDS ORDERED: FIORICET 50-301 EACH PO (11:35)
== END 2019-12-29 11:52 | disposition home or self-care (01) ==
LOC: ER 09:23
DX: G44.221 Chronic tension-type headache, intractable (principal); H53.8 Other visual disturbances; I10 Essential (primary) hypertension; E11.9 Type 2 diabetes mellitus without complications; E78.5 Hyperlipidemia, unspecified; F41.9 Anxiety disorder, unspecified; M06.9 Rheumatoid arthritis, unspecified
CPT/HCPCS: 36415; 70450; 80053; 81001; 82550; 82553; 83735; 84484; 85025; 85610; 85651; 85730; 87086; 93005; 99284; J1885

== ENCOUNTER 2020-05-29 14:15 | Emergency (ER) | payer OTHER ==
[~2020-05-29] VITALS: Ht 149.9 cm; Wt 82.6 kg
[~2020-05-29 14:15] MED LIST changes: +FIORICET 50-301 EACH PO
--- NOTE | 2020-05-29 14:35 | Emergency Department Note ---
History of Present Illnes History of Present Illness Chief Complaint: Chest Pain History of Present Illness This is a 59 year old female Chief Complaint Comment Patient in from [facility] with complaints of chest pain and pressure on the left side on her chest that started while doing laundry this morning. Patient reports that the pain went away when she went to lay down but then came back while still laying down. Patient reports the pain is worse when taking a deep breath. 81mg aspirin taken today. 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 Any updates have been documented here. 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 TUMMY TUCK BREAST REDUCTION Other Last Tetanus: UTD Review of Systems Review of Systems Constitutional: Reports no symptoms EENTM: Reports no symptoms Cardiovascular: Reports as per HPI, Reports chest pain Respiratory: Reports no symptoms Gastrointestinal: Reports no symptoms Genitourinary: Reports no symptoms Musculoskeletal: Reports no symptoms Integumentary: Reports no symptoms Neurological: Reports no symptoms Psychological: Reports no symptoms Endocrine: Reports no symptoms Hematological/Lymphatic: Reports no symptoms Physical Exam Related Data Allergies: Coded Allergies: morphine (Unverified Allergy, Severe, "shock", 12/29/19) tetracycline (Verified Allergy, Intermediate, HIVES, 12/29/19) Penicillins (Verified Allergy, Mild, 12/29/19) cyclobenzaprine (Verified Allergy, Mild, 12/29/19) iodine (Verified Allergy, Mild, 12/29/19) Triage Vital Signs Vital Signs Date Time Temp Pulse Resp B/P (MAP) Pulse Ox O2 Delivery O2 Flow Rate FiO2 05/29/20 14:21 97.6 75 18 129/59 99 Room Air Vital signs reviewed: Yes Physical Exam CONSTITUTIONAL Constitutional: Present well-developed, Present well-nourished HENT HENT: Present normocephalic, Present atraumatic, Present oropharynx clear/mo ist, Present nose normal HENT L/R: Present left ext ear normal, Present right ext ear normal EYES Eyes: Reports PERRL, Reports conjunctivae normal NECK Neck: Present ROM normal PULMONARY Pulmonary: Present effort normal, Present breath sounds normal CARDIOVASCULAR Cardiovascular: Present regular rhythm, Present heart sounds normal, Present capillary refill normal, Present normal rate GASTROINTESTINAL Abdominal: Present soft, Present nontender, Present bowel sounds normal GENITOURINARY Genitourinary: Present exam deferred SKIN Skin: Present warm, Present dry MUSCULOSKELETAL Musculoskeletal: Present ROM normal NEUROLOGICAL Neurological: Present alert, Present oriented x 3, Present no gross motor or sensory deficits PSYCHOLOGICAL Psychological: Present mood/affect normal, Present judgement normal Results Laboratory Lab results reviewed: Yes Imaging Imaging results reviewed: Yes Diagnostics Tests Diagnostic test(s) reviewed: Yes Assessment & Plan Medical Decision Making MDM 59-year-old female presents to the emergency department for left-sided chest pain. Initial differential includes pulmonary embolism versus muscular skeletal pain versus pneumonia versus ACS. Low suspicion for pulmonary embolism at this time. Cardiopulmonary workup benign. Will DC and follow up with PCP. Doubt emergent process at this time. I discussed results patient as well as expected disease time course and management. They will follow up with their primary care provider or return to the emergency department for new or worsening symptoms. Patient's appropriate for discharge. Part of this note was dictated with Chelsey and is subject to recognition errors. Reassessment Reassessment time: 16:16 Reassessment Well appearing, NAD Assessment & Plan Final Impression: (1) Chest pain Depart Disposition: HOME, SELF-CARE Last Vital Signs Date Time Temp Pulse Resp B/P (MAP) Pulse Ox O2 Delivery O2 Flow Rate FiO2 05/29/20 14:21 97.6 75 18 129/59 99 Room Air Home Meds Active Scripts Butalb/Acetaminophen/Caffeine (Fioricet 50-300-40 mg Capsule) 1 Each Capsule, 1- 2 CAP PO Q4HR PRN for HEADACHE, #20 CAP Prov:LAVERN HYLTON MD 12/29/19 Reported Medications Insulin Glargine (LANTUS 3ML PEN) 100 Units/1 Ml Inj, 12 UNITS SQ PRN 12/12/16 Escitalopram Oxalate (LEXAPRO) 10 Mg Tablet, 10 MG PO DAILY, #30 TAB 02/01/16 Saxagliptin Hcl (ONGLYZA) 5 Mg Tablet, 5 MG PO BID 11/25/15 Amlodipine Besylate (AMLODIPINE BESYLATE) 5 Mg Tablet, 5 MG PO DAILY, #30 TAB 11/25/15 Topiramate (TOPIRAMATE) 50 Mg Tablet, 50 MG PO DAILY 11/25/15 Quetiapine Fumarate (QUETIAPINE FUMARATE) 100 Mg Tablet, 50 MG PO HS, #30 TAB 11/25/15 Aspirin (ASPIR 81) 81 Mg Tablet.dr, 81 MG PO DAILY 11/25/15 Citalopram Hydrobromide (CITALOPRAM HBR) 20 Mg Tablet, 20 MG PO DAILY, TAB 11/25/15 Lisinopril (PRINAVIL / ZESTRIL) 20 Mg Tablet, bid 02/21/13 Esomeprazole Magnesium (NEXIUM) 40 Mg Capsule.dr, bid 02/21/13 Glimepiride (GLIMEPIRIDE) 2 Mg Tablet, bid 02/21/13 Metformin Hcl (Metformin Hcl) 1,000 Mg Tablet, 500 MG PO BID 06/06/12 CYNDI ACOSTA MD May 29, 2020 14:35
--- OUTSIDE RECORDS SUMMARY | 2020-05-29 14:59 | XMS REPORT | Clinical Summary ---
Author Author [facility] Organization [facility] Address Unknown Phone Unavailable Care Team Providers Care Dedicated Driver Name Role Phone PCP Unavailable Allergies Comments Active Allergy Reactions Severity Noted Date Cyclobenzaprine 03/10/2017 Iodine 03/10/2017 Penicillin G 03/10/2017 Tetracyclic 03/10/2017 Antidepressants Medications Not on file Active Problems Not on file Social History Date Tobacco Use Types Packs/Day Years Used Never Assessed Sex Assigned at Date Recorded Not on file Last Filed Vital Signs Not on file Plan of Treatment Not on file Results Not on fileafter 05/29/2019
--- OUTSIDE RECORDS SUMMARY | 2020-05-29 15:01 | XMS REPORT | Continuity of Care Document ---
Author Author [facility] t Organization [facility] Address [address] [place] [address] Phone Unavailable Care Team Providers Care Crab Catcher Name Role Phone JARROD DEL VALLE, MD Keeley BENAVIDEZ PCP Keeley HYLTON Attphys Unavailable Keeley ELLISON Attphys Unavailable MANEEVESSavanna Marc Attphys Unavailable Bashir DAVISON Attphys Unavailable CORBIN, SOUHEIL Attphys Unavailable CORBIN, SOUHEIL Admphys Unavailable Payers Payer Name Policy Type Policy Number Effective Date Expiration Date S robert [employer] NA 2011 00:00:00 [facility] Problems Condition Name Condition Details Condition Category Status Onset Date Resolution Date Last Treatment Date Treating Clinician Comments Source Diabetes mellitus Diabetes Problem Active 2015-11-25 00:00:00 [facility] Hypertension Hypertension Problem Active 2015-11-25 00:00:00 [facility] TIA (transient ischemic attack) TIA (transient ischemic attack) Pro blem Active 2015-11-25 00:00:00 [facility] Weakness Weakness Problem Active 2015-11-25 00:00:00 [facility] Contusion Contusion Problem Active [facility] Food impaction of esophagus Problem Active [facility] Allergies, Adverse Reactions, Alerts Allergy Name Allergy Type Status Severity Reaction(s) Onset Date Inacti ve Date Treating Clinician Comments Source Penicillin Allergy to substance Active Mild 2019-12-29 00:00:00 [facility] Iodine Allergy to substance Active Mild 2019-12-29 00:00:00 [facility] Morphine Allergy to substance Active Severe "shock" 2019-12-29 00:00:00 [facility] Tetracycline Allergy to substance Active Moderate HIVES 2019-12-29 00 :00:00 [facility] Cyclobenzaprine Allergy to substance Active Mild 2019-12-29 00:0 0:00 [facility] Penicillins DA Active [place] 2018-11-01 00:00:00 [facility] Tetracyclines DA Active [place] 2018-11-01 00:00:00 [facility] iodine DA Active [place] 2018-11-01 00:00:00 [facility] morphine DA Active SV 2018-11-01 00:00:00 [facility] cyclobenzaprine DA Active [place] 2018-11-01 00:00:00 [facility] strawberry DA Active U 2018-11-01 00:00:00 [facility] strawberry FA Active U 2018-11-01 00:00:00 [facility] Cyclobenzaprine Propensity to adverse reactions to drug Active 2017-03-10 00:00:00 Eusebio james Iodine Propensity to adverse reactions to drug Active 2017-03-10 00:00:00 Eusebio Silva Penicillin G Propensity to adverse reactions to drug Active 2017-03-10 00:00:00 Eusebio james Tetracyclic Antidepressants Propensity to adverse reactions to drug A ctive 2017-03-10 00:00:00 Eusebio Hammond odist Penicillins DA Active [place] 2016-11-16 00:00:00 [facility] Tetracyclines DA Active [place] 2016-11-16 00:00:00 [facility] iodine DA Active [place] 2016-11-16 00:00:00 [facility] morphine DA Active SV 2016-11-16 00:00:00 [facility] cyclobenzaprine DA Active [place] 2016-11-16 00:00:00 [facility] strawberry DA Active U 2016-11-16 00:00:00 [facility] Social History Social Habit Start Date Stop Date Quantity Comments Source Sex Assigned At [facility] druzeferino Zoroastrian Medications Ordered Medication Name Filled Medication Name Start Date Stop Da te Current Medication? Ordering Clinician Indication Dosage Frequency Signature (SIG) Comments Components Source Butalb/Acetaminophen/Caffeine (Fioricet 50-300-40 Mg C apsule) 1 Each CAPSULE Butalb/Acetaminophen/Caffeine (Fioricet 50-300-40 Mg Capsule) 1 Each CAPSULE 2019-12-29 11:35:00 Yes Every 4 Hours as n eeded for Headache [facility] Amlodipine Besylate Amlodipine Besylate Yes 5 Daily [facility] Aspirin (Aspir 81) 81 Mg TABLET. Aspirin (Aspir 81) 81 Mg TABLET. Yes 81 Daily [facility] Citalopram Hydrobromide (Citalopram Hbr) 20 Mg TABLET Citalopram Hydrobromide (Citalopram Hbr) 20 Mg TABLET Yes 20 Daily [facility] Escitalopram Oxalate (Lexapro) 10 Mg TABLET Escitalopr am Oxalate (Lexapro) 10 Mg TABLET Yes 10 Daily [facility] Esomeprazole Magnesium (Nexium) 40 Mg CAPSULE.DR Galvan prazole Magnesium (Nexium) 40 Mg CAPSULE. Yes Bid [facility] Glimepiride Glimepiride Yes Bid C [facility] Insulin Glargine (Lantus 3ML Pen) 100 Units/1 Ml INJ I nsulin Glargine (Lantus 3ML Pen) 100 Units/1 Ml INJ Yes 12 As Needed [facility] Lisinopril (Prinavil / Zestril) 20 Mg TABLET Lisinopri l (Prinavil / Zestril) 20 Mg TABLET Yes Bid [facility] Metformin Hcl Metformin Hcl Yes 500 Twice A Day [facility] Quetiapine Fumarate Quetiapine Fumarate Yes 50 Bedtime [facility] Saxagliptin Hcl (Onglyza) 5 Mg TABLET Saxagliptin Hcl (Onglyza) 5 M g TABLET Yes 5 Twice A Day [facility] Topiramate Topiramate Yes 50 [address] [facility] [place] Hydrochlorothiazide Hydrochlorothiazide 2017-12-02 00:00:00 No 12.5 Daily [facility] Insulin Glargine (Lantus 3ML Pen) 100 Units/1 Ml INJ I nsulin Glargine (Lantus 3ML Pen) 100 Units/1 Ml INJ 2017-12-02 00:00:00 No [address] [facility] [place] Lovastatin Lovastatin 2017-12-02 00:00:00 No 40 Leilani ly [facility] Metoclopramide Hcl Metoclopramide Hcl 2017-12-02 00:00:00 No [address] [facility] [place] Montelukast Sodium Montelukast Sodium 2017-12-02 00:00:00 No 10 Daily [facility] Tramadol Hcl (Ultram) 50 Mg TABLET Tramadol Hcl (Ultram) 50 Mg T ABLET 2017-12-02 00:00:00 No 50 Every 8 Hours as nee ded for Pain [facility] Trazodone Hcl Trazodone Hcl 2017-12-02 00:00:00 No 100 Daily [facility] Pregabalin (Lyrica) 75 Mg CAP Pregabalin (Lyrica) 75 Mg CAP 2016-12-12 00:00:00 No 75 Daily [facility] Metformin Hcl Metformin Hcl 2016-03-28 00:00:00 No Two Tabs Bid [facility] Pravastatin Sodium Pravastatin Sodium 2015-11-27 00:00:00 No 80 [facility] Zolpidem Tartrate (Ambien) 10 Mg TABLET Zolpidem Tartrate (A mbien) 10 Mg TABLET 2015-11-25 00:00:[address] [facility] [place] Lisinopril Lisinopril 2013-02-21 00:00:00 No 10 Leilani ly [facility] Ciprofloxacin Hcl Ciprofloxacin Hcl 2012-07-04 00:00:00 No 500 Twice A Day [facility] Ibuprofen Ibuprofen 2012-07-04 00:00:00 No 800 Every 8 Hrs [facility] Trazodone Hcl Trazodone Hcl 2012-07-04 00:00:00 No 100 [facility] Bp Med Bp Med 2012-06-06 00:00:00 No [facility] Metformin Metformin 2012-06-06 00:00:00 No [facility] Vital Signs Vital Name Observation Time Observation Value Comments Source Weight 2019-12-29 09:30:00 182 [lb_av] [facility] BMI (Body Mass Index) 2019-12-29 09:30:00 36.8 kg/m2 [facility] Procedures Procedure Date / Time Performed Performing Clinician Sour e Computed tomography of brain without radiopaque contrast 2019-12 00:00:00 [facility] Plan of Care Planned Activity Planned Date Details Comments Source Instructions Headache [facility] Encounters Start Date/Time End Date/Time Encounter Type Admission Type [facility] Care Department Encounter ID Source 2019-12-29 09:23:00 2019-12-29 11:52:00 Departed Emergency Room 1 LAVERN HYLTON [facility] [id number] [facility] 2019-12-17 23:22:00 2019-12-17 23:22:00 Registered Emergency Room [facility] [id number] [facility] [place] 2018-09-12 08:06:00 2018-09-12 13:45:00 Departed Emergency Room [facility] [id number] [facility] ical [place] 2018-05-15 06:31:00 2018-05-15 10:40:00 Departed Emergency Room 1 BHAVANI ELLISON [facility] [id number] [facility] 2018-03-26 11:16:00 2018-03-26 15:53:00 Departed Emergency Room 1 GINI TORREZIAN [facility] [id number] [facility] 2018-02-01 21:57:00 2018-02-02 00:33:00 Departed Emergency Room 1 LAVERN HYLTON [facility] [id number] [facility] 2017-12-02 13:33:00 2017-12-02 19:33:00 Departed Emergency Room ER YANE DAVISON [facility] [id number] [facility] 2017-08-08 22:41:00 2017-08-10 18:48:00 Discharged Inpatient (obs) ER CRYSTAL CORBIN [facility] [id number] [facility] Results Test Description Test Time Test Comments Results Result Comments Source CT BRAIN WO 2019-12-29 11:14:00 [place] [address] Patient Name: ROSITA MCGHEE MR #: [id number] : 1960 Age/Sex: 59/F Req #: [id number] Adm Physician: Ordered by: LAVERN HYLTON MD Report #: [id number] Location: ER Room/Bed: Procedure: [id number] CT/CT BRAIN WO Exam Date: 12/29/19 Exam Time: 0950 REPORT STATUS: Signed Examination: CT BRAIN WO CONTRAST History:Headache; vertigo. Comparison studies:None Technique: Axial images were obtained from the skull base to the vertex. Coronal and sagittal images reconstructed from the axial data. Dose modulation, iterative reconst ruction, and/or weight based adjustment of the mA/kV was utilized to reduce the radiation dose to as low as reasonably achievable. Intravenous contrast: None Findings: Scalp: No abnormalities. Bones: No fractures, blastic or lytic lesions. Brain sulci: Appropriate for age. Ventricles: Normal in size and configuration. No hydrocephalus. Extra-axial space: No abnormalities. Parenchyma: There are subtle patchy areas of hypoattenuation in the periventricular and subcortical white matter, nonspecific. No masses, hemorrhage, or acute or chronic cortical based vascular insults.. Sellar/suprasellar region: No abnormalities. Craniocervical junction: Patent foramen magnum. No Chiari one malformation. Incidental findings: Atherosclerotic calcification of the cavernous and supraclinoid internal carotid and V4 segments of the bilateral vertebral arteries. Impression: No acute intracranial abnormalities. Chronic microvascular ischemic change. Signed by: Dr. Yue Christina M.D. on 12/29/2019 11:18 AM Dictated By: YUE TRAYLOR MD [address] scribed By: CAROLYN on 12/29/19 1118 COPY TO: LAVERN HYLTON MD Blood leukocytes automated count (number/volume) 2019-12-29 09:46:00 Test Item White Blood Count (test code = 6690-2) 11.37 4.8-10.8 [facility] erythrocytes automated count (number/volume)2019-12-29 09:46:00* Test Item Value Reference Range Interpretation Comments Red Blood Count (test code = 789-8) 4.71 3.6-5.1 [facility] hemoglobin measurement (moles/volume)2019-12-29 09:46:00* Test Item Value Reference Range Interpretation Comments Hemoglobin (test code = 56478-2) 11.5 12.0-16.0 [facility] TexasAutomated blood hematocrit (volume fraction)2019-12-29 09:46:00* Test Item Value Reference Range Interpretation Comments Hematocrit (test code = 4544-3) 38.7 34.2-44.1 [facility] TexasAutomated erythrocyte mean corpuscular uxqwft6606-26-42 09:46:00* Test Item Value Reference Range Interpretation Comments Mean Corpuscular Volume (test code = 787-2) 82.2 81-99 [facility] TexasAutom[facility] erythrocyte mean corpuscular hemoglobin (mass per erythrocyte)2019-12-29 09:46:00* Test Item Value Reference Range Interpretation Comments Mean Corpuscular Hemoglobin (test code = 785-6) 24.4 28-32 [facility] mean corpuscular hemoglobin concentration measurement (mass/volume)2019-12-29 09:46:00* Test Item Value Reference Range Interpretation Comments Mean Corpuscular Hemoglobin Concent (test code = 786-4) 29.7 31-35 [facility] TexasRDW NqtMi-Tcf0850-27-09 09:46:00* Test Item Value Reference Range Interpretation Comments Red Cell Distribution Width (test code = 89942-0) 14.8 11.7 -14.4 [facility] blood platelet count (count/volume)2019-12-29 09:46:00* Test Item Value Reference Range Interpretation Comments Platelet Count (test code = 777-3) 392 140-360 [facility] count as percentage of total vrmejszhxm1978-38-17 09:46:00* Test Item Value Reference Range Interpretation Comments Neutrophils (%) (Auto) (test code = 11597-8) 68.7 38.7-80.0 [facility] blood lymphocyte count as percentage ot total cgjidvfzss5947-33-74 09:46:00* Test Item Value Reference Range Interpretation Comments Lymphocytes (%) (Auto) (test code = 736-9) 18.3 18.0-39.1 [facility]Aut[facility] blood monocyte count as percentage of total uwobfiepkj2055-89-37 09:46:00* Test Item Value Reference Range Interpretation Comments Monocytes (%) (Auto) (test code = 5905-5) 5.5 4.4-11.3 [facility] blood eosinophil count as percentage of total iiynstozcw7005-43-74 09:46:00* Test Item Value Reference Range Interpretation Comments Eosinophils (%) (Auto) (test code = 713-8) 6.7 0.0-6.0 [facility] blood basophil count as percentage of total hzgquapsmi8545-18-70 09:46:00* Test Item Value Reference Range Interpretation Comments Basophils (%) (Auto) (test code = 706-2) 0.4 0.0-1.0 [facility] TexasFluoroscopic procedure less than one hour tmzawzlr2525-71-41 09:46:00* Test Item Value Reference Range Interpretation Comments IM GRANULOCYTES % (test code = IM GRANULOCYTES %) 0.4 0.0- 1.0 [facility] blood neutrophil count 2019-12-29 09:46:00* Test Item Value Reference Range Interpretation Comments Neutrophils # (Auto) (test code = 751-8) 7.8 2.1-6.9 [facility] lymphocytes count (number/volume) 2019-12-29 09:46:00* Test Item Value Reference Range Interpretation Comments Lymphocytes # (Auto) (test code = 80880-8) 2.1 1.0-3.2 [facility] monocytes automated count (number/volume)2019-12-29 09:46:00* Test Item Value Reference Range Interpretation Comments Monocytes # (Auto) (test code = 742-7) 0.6 0.2-0.8 [facility]Autom[facility] blood eosinophil count 2019-12-29 09:46:00* Test Item Value Reference Range Interpretation Comments Eosinophils # (Auto) (test code = 711-2) 0.8 0.0-0.4 [facility]Autom[facility] blood basophil count (count/volume)2019-12-29 09:46:00* Test Item Value Reference Range Interpretation Comments Basophils # (Auto) (test code = 704-7) 0.1 0.0-0.1 [facility] TexasFluoroscopic procedure less than one hour wkgxtqhr3264-89-23 09:46:00* Test Item Value Reference Range Interpretation Comments Absolute Immature Granulocyte (auto (mallory t code = Absolute Immature Granulocyte (auto) 0.05 0-0.1 [facility] TexasErythrocyte sedimentation rate by Westergren syxiat3997-11-95 09:46:00* Test Item Value Reference Range Interpretation Comments Erythrocyte Sedimentation Rate (test code = 4537-7) 43 0- 20 [facility] TexasProthrombin time (PT) in platelet poor plasma by coagulation qaswu1520-05-02 09:46:00* Test Item Value Reference Range Interpretation Comments Prothrombin Time (test code = 5902-2) 12.5 11.9-14.5 [facility] TexasINR in Platelet poor plasma by Coagulation zcbei9447-67-00 09:46:00* Test Item Value Reference Range Interpretation Comments Prothromb Time International Ratio (test code = 6301-6) 0.88 Oral Anticoagulant Therapy INR Values:1. Low Intensity Therapy 1.5 - 2.02 . Moderate Intensity Therapy 2.0 - 3.03. High Intensity Therapy(1) 2.5 - 3. 54. High Intensity Therapy(2) 3.0 - 4.05. Panic Value INR > 5.0 [facility] TexasActivated partial thromboplastin time (aPTT) in platelet poor plasma by coagulation eonpp6112-35-40 09:46:00* Test Item Value Reference Range Interpretation Comments Activated Partial Thromboplast Time (test code = 53700-4) 33.8 23.8-35.5 [facility] TexasUrine color lmzdxkgpbyjvi4840-60-38 09:46:00* Test Item Value Reference Range Interpretation Comments Urine Color (test code = 5778-6) COLORLESS YELLOW [facility] TexasUrine auevxag4459-33-52 09:46:00* Test Item Value Reference Range Interpretation Comments Urine Clarity (test code = 67607-2) CLEAR CLEAR [facility] Urine by Test strip 2019-12-29 09:46:00* Test Item Value Reference Range Interpretation Comments Urine Specific Rush (test code = 5811-5) 1.010 1.010-1.02 5 [facility]Urine pH measurement by automated test binqi0566-24-06 09:46:00* Test Item Value Reference Range Interpretation Comments Urine pH (test code = 44411-5) 6 5-7 [facility] TexasUrine leukocyte esterase detection by ljesvxog7628-09-45 09:46:00* Test Item Value Reference Range Interpretation Comments Urine Leukocyte Esterase (test code = 5799-2) NEGATIVE NEGATIVE [facility] TexasUrine nitrite fahpbsndr1444-67-20 09:46:00* Test Item Value Reference Range Interpretation Comments Urine Nitrite (test code = 08515-6) NEGATIVE NEGATIVE [facility] TexasUrine protein measurement by test strip (mass/volume)2019-12-29 09:46:00* Test Item Value Reference Range Interpretation Comments Urine Protein (test code = 5804-0) NEGATIVE NEGATIVE [facility] TexasUrine glucose pdkumcepl9273-74-43 09:46:00* Test Item Value Reference Range Interpretation Comments Urine Glucose (UA) (test code = 2349-9) NEGATIVE NEGATIVE [facility] TexasUrine ketones detection by automated test uznvz6961-15-83 09:46:00* Test Item Value Reference Range Interpretation Comments Urine Ketones (test code = 30422-4) NEGATIVE NEGATIVE [facility] TexasUrine urobilinogen measurement by test strip (mass/volume)2019-12-29 09:46:00* Test Item Value Reference Range Interpretation Comments Urine Urobilinogen (test code = 18048-8) 0.2 0.2-1 [facility]Urine total bilirubin measurement (mass/volume)2019-12-29 09:46:00* Test Item Value Reference Range Interpretation Comments Urine Bilirubin (test code = 1978-6) NEGATIVE NEGATIVE [facility] TexasUrine erythrocytes swyfgcgiq7100-92-55 09:46:00* Test Item Value Reference Range Interpretation Comments Urine Blood (test code = 35943-9) NEGATIVE NEGATIVE [facility] TexasAutomated urine sediment leukocyte count by microscopy (number/high power field)2019-12-29 09:46:00* Test Item Value Reference Range Interpretation Comments Urine WBC (test code = 5821-4) 0-5 0-5 [facility] TexasErythrocytes detection in urine sediment by light imubjimbrl3979-96-15 09:46:00* Test Item Value Reference Range Interpretation Comments Urine RBC (test code = 70936-7) 0-5 0-5 [facility] TexasBacteria detection in urine sediment by light xuzrtpqojo2917-63-76 09:46:00* Test Item Value Reference Range Interpretation Comments Urine Bacteria (test code = 54277-4) NONE NONE [facility] TexasEpithelial cells detection in urine sediment by light mbpugvrrbu1604-36-86 09:46:00* Test Item Value Reference Range Interpretation Comments Urine Epithelial Cells (test code = 53198-8) FEW NONE [facility] Centererum or plasma sodium measurement (moles/volume)2019-12-29 09:46:00* Test Item Value Reference Range Interpretation Comments Sodium Level (test code = 2951-2) 140 136-145 [facility]ererum or plasma potassium measurement (moles/volume)2019-12-29 09:46:00* Test Item Value Reference Range Interpretation Comments Potassium Level (test code = 2823-3) 4.2 3.5-5.1 [facility]ererum or plasma chloride measurement (moles/volume)2019-12-29 09:46:00* Test Item Value Reference Range Interpretation Comments Chloride Level (test code = 2075-0) 105 98-107 [facility]ererum or plasma carbon dioxide, total measurement (moles/volume)2019-12-29 09:46:00* Test Item Value Reference Range Interpretation Comments Carbon Dioxide Level (test code = 2028-9) 25 22-29 [facility]ererum or plasma anion tbk4027-79-52 09:46:00* Test Item Value Reference Range Interpretation Comments Anion Gap (test code = 13214-9) 14.2 8-16 [facility]ererum or plasma urea nitrogen measurement (mass/volume)2019-12-29 09:46:00* Test Item Value Reference Range Interpretation Comments Blood Urea Nitrogen (test code = 3094-0) 11 7-26 [facility]ererum or plasma creatinine measurement (mass/volume)2019-12-29 09:46:00* Test Item Value Reference Range Interpretation Comments Creatinine (test code = 2160-0) 0.69 0.57-1.11 [facility]ererum or plasma urea nitrogen/creatinine mass fzebg6779-25-22 09:46:00* Test Item Value Reference Range Interpretation Comments BUN/Creatinine Ratio (test code = 3097-3) 16 6-25 [facility] TexasEstimated glomerular filtration rate (GFR) acyqovzlbvlvq9225-76-72 09:46:00* Test Item Value Reference Range Interpretation Comments Estimat Glomerular Filtration Rate (test code = 608659824) > 60 >60 Ranges were taken from the National Kidney Disease Education Program and the [facility] Foundation literature.Reference ranges:60 or greater: Xengfj62-41 ( for 3 consecutive months): Chronic kidney disease 15 or less: Kidney failureThe [facility] Center of Southeast TexasGlucose sxnucsxhjyy9759-79-85 09:46:00* Test Item Value Reference Range Interpretation Comments Glucose Level (test code = GKQ0173) 121 74-118 [facility]ererum or plasma calcium measurement (mass/volume)2019-12-29 09:46:00* Test Item Value Reference Range Interpretation Comments Calcium Level (test code = 30757-2) 9.9 8.4-10.2 [facility]ererum or plasma magnesium measurement (mass/volume)2019-12-29 09:46:00* Test Item Value Reference Range Interpretation Comments Magnesium Level (test code = 46953-7) 1.7 1.3-2.1 [facility]ererum or plasma total bilirubin measurement (mass/volume)2019-12-29 09:46:00* Test Item Value Reference Range Interpretation Comments Total Bilirubin (test code = 1975-2) 0.3 0.2-1.2 [facility] TexasFluoroscopic procedure less than one hour iulujkvq1390-40-01 09:46:00* Test Item Value Reference Range Interpretation Comments Aspartate Amino Transf (AST/SGOT) (test code = Aspartate Amino Transf (AST/SGOT)) 20 5-34 [facility] Centererum or plasma alanine aminotransferase measurement (enzymatic activity/volume)2019-12-29 09:46:00* Test Item Value Reference Range Interpretation Comments Alanine Aminotransferase (ALT/SGPT) (test code = 1742-6) 25 0-55 [facility] Centererum or plasma protein measurement (mass/volume)2019-12-29 09:46:00* Test Item Value Reference Range Interpretation Comments Total Protein (test code = 2885-2) 7.5 6.5-8.1 [facility] [facility] (mass/volume)2019-12-29 09:46:00* Test Item Value Reference Range Interpretation Comments Albumin (test code = 1751-7) 3.7 3.5-5.0 [facility] (mass/volume) 2019-12-29 09:46:00* Test Item Value Reference Range Interpretation Comments Globulin (test code = 71411-5) 3.8 2.3-3.5 [facility] albumin/globulin mass [id number] 09:46:00* Test Item Value Reference Range Interpretation Comments Albumin/Globulin Ratio (test code = 1759-0) 1.0 0.8-2.0 [facility] alkaline phosphatase measurement (enzymatic activity/volume)2019-12-29 09:46:00* Test Item Value Reference Range Interpretation Comments Alkaline Phosphatase (test code = 6768-6) 125 40-150 [facility] creatine kinase measurement (enzymatic activity/volume)2019-12-29 09:46:00* Test Item Value Reference Range Interpretation Comments Creatine Kinase (test code = 2157-6) 86 29-168 [facility] creatine kinase MB measurement (mass/volume)2019-12-29 09:46:00* Test Item Value Reference Range Interpretation Comments Creatine Kinase MB (test code = 36990-5) 1.00 0-5.0 [facility] measurement by highly sensitive enzyme [id number] 09:46:00* Test Item Value Reference Range Interpretation Comments Troponin I (test code = 03506-2) 0.010 0-0.300 [facility]2020-02-23 16:52:00* Test Item Value Reference Range Interpretation Comments GLUBED (test code = GLUBED) 118 mg/dL 74-106 H Performed by certified dump truck operator at [facility] [id number] 12:13:00* Test Item Value Reference Range Interpretation Comments GLUBED (test code = GLUBED) 107 mg/dL 74-106 H Performed by certified dump truck operator at [facility] [id number] 08:51:00* Test Item Value Reference Range Interpretation Comments GLUBED (test code = GLUBED) 72 mg/dL 74-106 L Performed by certified dump truck operator at [facility] - CT NECK W/O [id number] 16:20:00 Name: ROSITA MCGHEE [facility] : 1960 Age/S: 58 / F [address] [facility] #: [id number] Loc: RADHA Kraus [address] Phys: Morgan Corbin MD Acct: [id number] Dis Date: Status: ADM IN PHONE #: [phone] Exam Date: 10/13/2019 1555 FAX #: [phone] Reason: FOOD IMPACTION EXAMS: CPT CODE: [id number] CT NECK W/O CONTRAST 19398 HISTORY: Foot impaction. COMPARISON: CTA neck from November 01, 2018. CT neck without contrast: Automated exposure control. Location: TH. The brain parenchyma is unremarkable. Intraorbital contents are unr emarkable. Paranasal sinuses are clear. Visualized paranasal sinuses are clear. Symmetrical fossa of Rosenmueller and parapharyngeal space s. Hard and soft palate are partially obscured by beam hardening artifact from patient's dental work. Base of the tongue and oral tongue are witho ut mass or lesions. Symmetrical retromolar trigone. Uvula is midline. No tonsillar collection. No prevertebral or retropharyngeal fluid co llections are visible. Symmetrical parotid glands and parotid spac es along with carotid spaces. The sewing machine operator paper bags spaces are symmetrical. Sub mandibular glands are symmetrical. No sialoliths. No pathologic adenopat hy from level 1 through 6. The nasopharyngeal and oropharyng eal airway are widely patent. Well-aerated right side of the vallecula an d piriform sinuses. Soft tissue occupying the left [...] are clear. No lytic or blastic lesions ar e noted within the bony skeleton. Sclerosis of the mastoid air cells. IMPRESSION: Fullness of the left vallecula and th e piriform sinus when compared to the right side with no air noted. It is difficult to assess for masses as contrast could not be administered due to allergy. No mass effect. Direct visualization recommended. Res t of the airway is widely patent. No pathologic adenopathy from level 1 through 6. PAGE 1 Signed Report (CONTINUED) Name: ROSITA MCGHEE [facility] : 1960 Age/S: 58 / F [address] [facility] Unit #: [id number] Loc: [place] [address] Ph ys: Morgan Corbin MD Acct: [id number] Dis Date: Status: ADM IN PHONE #: [phone] Exam Date: 10/13/2019 1555 FA X #: [phone] Reason: FOOD IMPACTION EXAMS: CPT CODE: [id number] CT NECK W/O CONTRAST 51529 <Continued> at 1620 Reported and signed by: Tanner Melendrez M.D. CC: Morgan Corbin MD; Crystal Corbin MD; Jose Elias Wilson MD, Ramon A MD T echnologist:Tami Gross RT(R),CT CTDI: DLP: Trnscb Date /Time: 10/13/2019 (1620) t.SDR.TH4 Orig Print D/T: S: (3903) PAGE 2 Signed Report BASIC METABOLIC [id number] 21:47:00* Test Item Value Reference Range Interpretation Comments SODIUM (test code = NA) 140 mmol/L 136-145 N POTASSIUM (test code = K) 3.9 mmol/L 3.5-5.1 N CHLORIDE (test code = CL) 108.0 mmol/L 98-107 H CARBON DIOXIDE (test code = CO2) 25.0 mmol/L 21-32 N ANION GAP (test code = GAP) 10.9 10-20 N GLUCOSE (test code = GLU) 108 mg/dL 74-106 H BLOOD UREA NITROGEN (test code = BUN) 14 mg/dL 7-18 N GLOMERULAR FILTRATION RATE (test code = GFR) > 60 mL/min >=60 Estimated GFR by using Modified MDRD formula.Chronic kidney disease is defined as either kidney damageor GFR <60 mL/min/1.73 m2 for >3 months. CREATININE (test code = CREAT) 0.70 mg/dL 0.55-1.02 N Note change in reference range due to change in reagent. BUN/CREATININE RATIO (test code = BUN/CREA) 20.0 10-20 N CALCIUM (test code = CA) 9.6 mg/dL 8.5-10.1 N HEPATIC FUNCTION [id number] 21:47:00* Test Item Value Reference Range Interpretation Comments TOTAL PROTEIN (test code = PROT) 8.2 gram/dL 6.4-8.2 N ALBUMIN (test code = ALB) 3.7 g/dL 3.4-5.0 N GLOBULIN (test code = GLOB) 4.5 gram/dL 2.7-4.2 H ALBUMIN/GLOBULIN RATIO (test code = A/G) 0.8 0.75-1.50 N BILIRUBIN TOTAL (test code = BILT) 0.30 mg/dL 0.0-1.0 N BILIRUBIN DIRECT (test code = BILD) 0.07 mg/dL 0.0-0.20 N SGOT/AST (test code = AST) 16 IUnit/L 15-37 N SGPT/ALT (test code = ALT) 26 IUnit/L 12-78 N ALKALINE PHOSPHATASE TOTAL (test code = ALKP) 141 IUnit/L 45-117 H Note change in reference range due to change in reagent. [id number] 21:47:00* Test Item Value Reference Range Interpretation Comments LIPASE (test code = LIP) 130 U/L 73.0-393.0 N HCG SERUM [id number] 21:47:00* Test Item Value Reference Range Interpretation Comments HCG SERUM QUAL (test code = HCGQL) NEGATIVE NEGATIVE This HCGQL test is NOT applicable for MALE patients.Check with nurse about probable order error.If Tumor Marker Test needed, nurse should order test "HCGTU"(Test #550.37547) [id number] 21:47:00* Test Item Value Reference Range Interpretation Comments TROPONIN-I (test code = TROPI) <0.015 ng/mL 0-0.045 N BASIC METABOLIC [id number] 21:46:00* Test Item Value Reference Range Interpretation Comments SODIUM (test code = NA) 140 mmol/L 136-145 N POTASSIUM (test code = K) 3.9 mmol/L 3.5-5.1 N CHLORIDE (test code = CL) 108.0 mmol/L 98-107 H CARBON DIOXIDE (test code = CO2) mmol/L 21-32 ANION GAP (test code = GAP) 10-20 GLUCOSE (test code = GLU) mg/dL 74-106 BLOOD UREA NITROGEN (test code = BUN) mg/dL 7-18 GLOMERULAR FILTRATION RATE (test code = GFR) mL/min >=60 CREATININE (test code = CREAT) mg/dL 0.55-1.02 BUN/CREATININE RATIO (test code = BUN/CREA) 10-20 CALCIUM (test code = CA) mg/dL 8.5-10.1 HEPATIC FUNCTION [id number] 21:46:00* Test Item Value Reference Range Interpretation Comments TOTAL PROTEIN (test code = PROT) gram/dL 6.4-8.2 ALBUMIN (test code = ALB) g/dL 3.4-5.0 GLOBULIN (test code = GLOB) gram/dL 2.7-4.2 ALBUMIN/GLOBULIN RATIO (test code = A/G) 0.75-1.50 BILIRUBIN TOTAL (test code = BILT) mg/dL 0.0-1.0 BILIRUBIN DIRECT (test code = BILD) mg/dL 0.0-0.20 SGOT/AST (test code = AST) IUnit/L 15-37 SGPT/ALT (test code = ALT) IUnit/L 12-78 ALKALINE PHOSPHATASE TOTAL (test code = ALKP) IUnit/L 45-117 [id number] 21:46:00* Test Item Value Reference Range Interpretation Comments LIPASE (test code = LIP) U/L 73.0-393.0 HCG SERUM [id number] 21:46:00* Test Item Value Reference Range Interpretation Comments HCG SERUM QUAL (test code = HCGQL) NEGATIVE NEGATIVE This HCGQL test is NOT applicable for MALE patients.Check with nurse about probable order error.If Tumor Marker Test needed, nurse should order test "HCGTU"(Test #550.48144) [id number] 21:46:00* Test Item Value Reference Range Interpretation Comments TROPONIN-I (test code = TROPI) ng/mL 0-0.045 BASIC METABOLIC [id number] 21:41:00* Test Item Value Reference Range Interpretation Comments SODIUM (test code = NA) 140 mmol/L 136-145 N POTASSIUM (test code = K) 3.9 mmol/L 3.5-5.1 N CHLORIDE (test code = CL) 108.0 mmol/L 98-107 H CARBON DIOXIDE (test code = CO2) mmol/L 21-32 ANION GAP (test code = GAP) 10-20 GLUCOSE (test code = GLU) mg/dL 74-106 BLOOD UREA NITROGEN (test code = BUN) mg/dL 7-18 GLOMERULAR FILTRATION RATE (test code = GFR) mL/min >=60 CREATININE (test code = CREAT) mg/dL 0.55-1.02 BUN/CREATININE RATIO (test code = BUN/CREA) 10-20 CALCIUM (test code = CA) mg/dL 8.5-10.1 HEPATIC FUNCTION [id number] 21:41:00* Test Item Value Reference Range Interpretation Comments TOTAL PROTEIN (test code = PROT) gram/dL 6.4-8.2 ALBUMIN (test code = ALB) g/dL 3.4-5.0 GLOBULIN (test code = GLOB) gram/dL 2.7-4.2 ALBUMIN/GLOBULIN RATIO (test code = A/G) 0.75-1.50 BILIRUBIN TOTAL (test code = BILT) mg/dL 0.0-1.0 BILIRUBIN DIRECT (test code = BILD) mg/dL 0.0-0.20 SGOT/AST (test code = AST) IUnit/L 15-37 SGPT/ALT (test code = ALT) IUnit/L 12-78 ALKALINE PHOSPHATASE TOTAL (test code = ALKP) IUnit/L 45-117 [id number] 21:41:00* Test Item Value Reference Range Interpretation Comments LIPASE (test code = LIP) U/L 73.0-393.0 HCG SERUM [id number] 21:41:00* Test Item Value Reference Range Interpretation Comments HCG SERUM QUAL (test code = HCGQL) NEGATIVE [id number] 21:41:00* Test Item Value Reference Range Interpretation Comments TROPONIN-I (test code = TROPI) ng/mL 0-0.045 CBC W/O [id number] 21:29:00* Test Item Value Reference Range Interpretation Comments WHITE BLOOD CELL (test code = WBC) 13.9 K/mm3 4.5-12.5 H RED BLOOD CELL (test code = RBC) 4.36 mill/mm3 3.7-5.2 N HEMOGLOBIN (test code = HGB) 11.5 gram/dL 11.5-15.5 N HEMATOCRIT (test code = HCT) 35.9 % 36.0-46.0 L MEAN CELL VOLUME (test code = MCV) 82.3 fL 80-98 N MEAN CELL HGB (test code = MCH) 26.4 picogram 27.0-33.0 L MEAN CELL HGB CONCETRATION (test code = MCHC) 32.0 gram/dL 33.0-36. 0 L RED CELL DISTRIBUTION WIDTH (test code = RDW) 14.0 % 11.6-16. 2 N PLATELET COUNT (test code = PLT) 375 K/mm3 150-450 N MEAN PLATELET VOLUME (test code = MPV) 9.7 fL 6.7-11.0 N CBC W/O [id number] 21:20:00* Test Item Value Reference Range Interpretation Comments WHITE BLOOD CELL (test code = WBC) K/mm3 4.5-12.5 RED BLOOD CELL (test code = RBC) mill/mm3 3.7-5.2 HEMOGLOBIN (test code = HGB) 11.5 gram/dL 11.5-15.5 N HEMATOCRIT (test code = HCT) % 36.0-46.0 MEAN CELL VOLUME (test code = MCV) fL 80-98 MEAN CELL HGB (test code = MCH) picogram 27.0-33.0 MEAN CELL HGB CONCETRATION (test code = MCHC) gram/dL 33.0-36. 0 RED CELL DISTRIBUTION WIDTH (test code = RDW) % 11.6-16. 2 PLATELET COUNT (test code = PLT) K/mm3 150-450 MEAN PLATELET VOLUME (test code = MPV) fL 6.7-11.0 URINALYSIS [id number] 21:06:00* Test Item Value Reference Range Interpretation Comments UA COLOR (test code = COLU) COLORLESS YELLOW A UA APPEARANCE (test code = APPU) CLEAR CLEAR UA GLUCOSE DIPSTICK (test code = DGLUU) NEGATIVE mg/dL NEGATIVE UA BILIRUBIN DIPSTICK (test code = BILU) NEGATIVE mg/dL NEGATIVE UA KETONE DIPSTICK (test code = KETU) NEGATIVE mg/dL NEGATIVE UA SPECIFIC GRAVITY (test code = SGU) 1.003 1.001-1.035 UA BLOOD DIPSTICK (test code = NORTH) Negative mg/dL NEGATIVE UA PH DIPSTICK (test code = JAVON) 6.0 5.0-8.0 UA PROTEIN DIPSTICK (test code = PROU) NEGATIVE mg/dL NEGATIVE UA UROBILINIOGEN DIPSTICK (test code = URO) Normal mg/dL NEGATIVE UA NITRITE DIPSTICK (test code = KAITLIN) NEGATIVE NEGATIVE UA LEUKOCYTE ESTERASE W REFLEX (test code = LEUUR) NEGATIVE Jessica/uL NEGATIVE UA WBC (test code = WBCU) 0-5 per HPF 0-5 UA RBC (test code = RBCU) NONE SEEN #/HPF 0-5 UA EPITHELIAL CELLS (test code = EPIU) FEW per HPF FEW UA BACTERIA (test code = BACU) NONE SEEN #/HPF NONE Urine Source? Clean CatchFECES OVA [id number] 15:10:00* Test Item Value Reference Range Interpretation Comments CONCENTRATE RESULT (test code = CONC) Final report () These results were obtained using wet preparation(s) andtrichrome stained smear. This test does not include testingfor Cryptosporidium parvum, Cyclospora, or Microsporidia. TRICHROME RESULT (test code = TRIC) SOURCE: STOOLSPECIMEN DESCRIPTION: RANDOMAG GIARDIA [id number] 15:10:00* Test Item Value Reference Range Interpretation Comments AG GIARDIA FECES (test code = GIARDAG) Negative Negative Performed At: [facility] [id number] Potter MD Ph:[phone] SOURCE: STOOLSPECIMEN DESCRIPTION: RANDOMFECES OVA [id number] 15:10:00* Test Item Value Reference Range Interpretation Comments CONCENTRATE RESULT (test code = CONC) Final report () These results were obtained using wet preparation(s) andtrichrome stained smear. This test does not include testingfor Cryptosporidium parvum, Cyclospora, or Microsporidia. TRICHROME RESULT (test code = TRIC) () No ova, cysts, or parasites seen.One negative specimen does not rule out the possibility ofa parasitic infection.Performed At: [facility] [id number] Potter MD Ph:[phone] SOURCE: STOOLSPECIMEN DESCRIPTION: RANDOMAG GIARDIA [id number] 15:10:00* Test Item Value Reference Range Interpretation Comments AG GIARDIA FECES (test code = GIARDAG) Negative Negative Performed At: [facility] [id number] Potter MD Ph:[phone] SOURCE: STOOLSPECIMEN DESCRIPTION: RANDOMCALPROTECTIN [id number] 14:09:00* Test Item Value Reference Range Interpretation Comments CALPROTECTIN FECAL (test code = CALFECAL) <16 ug/g 0-120 Concentration Interpretation Follow-Up<16 - 50 ug/g Normal None>50 -120 ug/g Borderline Re-evaluate in 4-6 weeks >120 ug/g Abnormal Repeat as clinically indicatedPerformed At: [address] [id number] Banuelos MD Ph:[phone] DUODENUM,[id number] 15:00:00 RUN DATE: 10/10/19 [facility] PAGE 1 RUN TIME: 1500 Specimen Inqui ry RUN USER: INTERFACE PATIENT: ROSITA MCGHEE ACCT #: [id number] LOC: WendySRG U #: [id number] AGE/SX: 58/F ROOM: RE10/09/[facility]: Morgan Corbin MD : 60 BED: DIS: STATUS: [facility] TLOC: SPEC #: [id number] RECD: 10/09/19 STATUS: ADELFO REDannie #: [id number] RACHEL: 10/09/19- SUBM DR: Morgan Corbin MD ENTERED: 10/09/19 SP TYPE: BX DUODEN OTHR DR: Yves Croey MD ORDERED: GROSS COPIES TO: Morgan Corbin MD [address] [place] [address] Yves Corey MD [address] [place] [address] PROCEDURES: GROSS (-1338) TISSUES: 1. DUODENUM, NOS - 2nd PORTION [...] PROPRIA NO INTRAEPITHELIAL INFLAMMATION PRESENT NO AREAS O F MUCOSAL EROSION/ULCERATION NEGATIVE FOR MALIGNANCY Gastric antrum , biopsy: PATCHY MINIMAL-MILD CHRONIC INFLAMMATION IN GASTRIC MUCOSA NO AREAS OF MUCOSAL EROSION/ULCERATION NEGATIVE FOR HELICOBACTER ORGAN ISMS NEGATIVE FOR INTESTINAL METAPLASIA NEGATIVE FOR MALIGNANCY CONTINUED ON NEXT PAGE RUN DA TE: 10/10/19 Letha [facility] [employer] PAG E 2 RUN TIME: 1500 Specimen Inquiry RUN USER: INTERFACE SPEC #: [id number] PATIENT: LITZYROSITA ANN #[id number] (Continued) FINAL DIAGNOSIS (Contin ued) Terminal ileum, [...] NGE PRESENT NEGATIVE FOR MALIGNANCY RRB/sm D 22144y3, 75057 MACROSCOPIC The first specimen is received in [...] cm, submitted as (5). GROSS PERFORMED AT [facility] [address] [place] [address] CONTINUED ON NEXT PAGE RUN DATE: 10/10/19 [facility] PAGE 3 RUN TIME: 1500 Specimen Inquiry [facility] #: [id number] PATIENT: ROSITA MCGHEE RUSS #[id number] ( Continued) MACROSCOPIC (Continued) [phone] MICROSCOPIC A Giemsa stain was performed on the gastric bio psy to exclude Helicobacter organisms. All of the stains, including any contr ols performed, stain appropriately. MICROSCOPIC PERFORMED AT [facility] [address] [facility] [address] [phone] [address] Diagnosis performed at: [facility] [address] [facility], [place] [address] --------- --- Signed SIGNATURE ON FILE Nick Kendrick MD 10/10/19 1500 [address] OF REPORT FECES OVA [id number] 11:10:00* Test Item Value Reference Range Interpretation Comments CONCENTRATE RESULT (test code = CONC) TRICHROME RESULT (test code = TRIC) SOURCE: STOOLSPECIMEN DESCRIPTION: RANDOMAG GIARDIA [id number] 11:10:00* Test Item Value Reference Range Interpretation Comments AG GIARDIA FECES (test code = GIARDAG) Negative Negative Performed At: [facility] [address] [id number] Robert Potter MD Ph:[phone] SOURCE: STOOLSPECIMEN DESCRIPTION: [id number] 08:08:00* Test Item Value Reference Range Interpretation Comments GLUBED (test code = GLUBED) 96 mg/dL 74-106 N Performed by certified dump truck operator at [facility] BASIC METABOLIC [id number] 14:09:00* Test Item Value Reference Range Interpretation Comments SODIUM (test code = NA) 139 mmol/L 136-145 N POTASSIUM (test code = K) 4.4 mmol/L 3.5-5.1 N CHLORIDE (test code = CL) 110.0 mmol/L 98-107 H CARBON DIOXIDE (test code = CO2) 22.0 mmol/L 21-32 N ANION GAP (test code = GAP) 11.4 10-20 N GLUCOSE (test code = GLU) 77 mg/dL 74-106 N BLOOD UREA NITROGEN (test code = BUN) 21 mg/dL 7-18 H GLOMERULAR FILTRATION RATE (test code = GFR) > 60 mL/min >=60 Estimated GFR by using Modified MDRD formula.Chronic kidney disease is defined as either kidney damageor GFR <60 mL/min/1.73 m2 for >3 months. CREATININE (test code = CREAT) 0.70 mg/dL 0.55-1.02 N Note change in reference range due to change in reagent. BUN/CREATININE RATIO (test code = BUN/CREA) 30.0 10-20 H CALCIUM (test code = CA) 9.8 mg/dL 8.5-10.1 N CBC W/AUTO [id number] 13:27:00* Test Item Value Reference Range Interpretation Comments WHITE BLOOD CELL (test code = WBC) 11.9 K/mm3 4.5-12.5 N RED BLOOD CELL (test code = RBC) 4.56 mill/mm3 3.7-5.2 N HEMOGLOBIN (test code = HGB) 11.8 gram/dL 11.5-15.5 N HEMATOCRIT (test code = HCT) 37.8 % 36.0-46.0 N MEAN CELL VOLUME (test code = MCV) 82.9 fL 80-98 N MEAN CELL HGB (test code = MCH) 25.9 picogram 27.0-33.0 L MEAN CELL HGB CONCETRATION (test code = MCHC) 31.2 gram/dL 33.0-36. 0 L RED CELL DISTRIBUTION WIDTH (test code = RDW) 14.3 % 11.6-16. 2 N RED CELL DISTRIBUTION WIDTH SD (test code = RDW-SD) 42.9 fL 37 .0-51.0 N PLATELET COUNT (test code = PLT) 391 K/mm3 150-450 N MEAN PLATELET VOLUME (test code = MPV) 10.0 fL 6.7-11.0 N NEUTROPHIL % (test code = NT%) 63.9 % 39.0-69.0 N IMMATURE GRANULOCYTE % (test code = IG%) 0.8 % 0.0-5.0 N LYMPHOCYTE % (test code = LY%) 21.9 % 25.0-55.0 L MONOCYTE % (test code = MO%) 5.8 % 0.0-10.0 N EOSINOPHIL % (test code = EO%) 7.3 % 0.0-5.0 H BASOPHIL % (test code = BA%) 0.3 % 0.0-1.0 N NUCLEATED RBC % (test code = NRBC%) 0.0 % 0-0 N NEUTROPHIL # (test code = NT#) 7.63 K/mm3 1.8-7.7 N IMMATURE GRANULOCYTE # (test code = IG#) 0.09 x10 3/uL 0-0.03 H LYMPHOCYTE # (test code = LY#) 2.61 K/mm3 1.0-5.0 N MONOCYTE # (test code = MO#) 0.69 K/mm3 0-0.8 N EOSINOPHIL # (test code = EO#) 0.87 K/mm3 0.0-0.5 H BASOPHIL # (test code = BA#) 0.04 K/mm3 0.0-0.2 N NUCLEATED RBC # (test code = NRBC#) 0.00 K/mm3 0.0-0.1 N CBC W/AUTO [id number] 13:22:00* Test Item Value Reference Range Interpretation Comments WHITE BLOOD CELL (test code = WBC) K/mm3 4.5-12.5 RED BLOOD CELL (test code = RBC) mill/mm3 3.7-5.2 HEMOGLOBIN (test code = HGB) 11.8 gram/dL 11.5-15.5 N HEMATOCRIT (test code = HCT) 37.8 % 36.0-46.0 N MEAN CELL VOLUME (test code = MCV) fL 80-98 MEAN CELL HGB (test code = MCH) picogram 27.0-33.0 MEAN CELL HGB CONCETRATION (test code = MCHC) gram/dL 33.0-36. 0 RED CELL DISTRIBUTION WIDTH (test code = RDW) % 11.6-16. 2 RED CELL DISTRIBUTION WIDTH SD (test code = RDW-SD) fL 37 .0-51.0 PLATELET COUNT (test code = PLT) K/mm3 150-450 MEAN PLATELET VOLUME (test code = MPV) fL 6.7-11.0 NEUTROPHIL % (test code = NT%) % 39.0-69.0 IMMATURE GRANULOCYTE % (test code = IG%) % 0.0-5.0 LYMPHOCYTE % (test code = LY%) % 25.0-55.0 MONOCYTE % (test code = MO%) % 0.0-10.0 EOSINOPHIL % (test code = EO%) % 0.0-5.0 BASOPHIL % (test code = BA%) % 0.0-1.0 NEUTROPHIL # (test code = NT#) K/mm3 1.8-7.7 LYMPHOCYTE # (test code = LY#) K/mm3 1.0-5.0 MONOCYTE # (test code = MO#) K/mm3 0-0.8 EOSINOPHIL # (test code = EO#) K/mm3 0.0-0.5 BASOPHIL # (test code = BA#) K/mm3 0.0-0.2 - CTA [id number] 17:45:00 Name: ROSITA MCGHEE [facility] : 1960 Age/S: 57 / F [address] Unit #: [id number] Loc: RADHA Kraus [address] Phys: Ashley Delgado DO Acct: [id number] Dis Date: Status: REG ER PHONE #: [phone] Exam Date: 11/01/2018 1542 FAX #: [phone] Reason: HEADACHE, R/O ANEURYSM EXAMS: CPT CODE: [id number] CTA NECK 07937 EXAM: CT angiography of the head and [...] CTDI: DLP: Trnscb Date/Hermilo e: 11/01/2018 (1745) Alesia Orig Print D/T: S: 019 (7318) CTDI: DLP: PAGE 1 Sign ed Report - CTA [id number] 17:45:00 Name: ROSITA MCGHEE [facility] : 1960 Age/S: 57 / F [address] [facility] Unit #: [id number] Loc: RADHA Kraus [address] Phys: Abbey Delgado DO Acct: [id number] Di s Date: Status: REG ER PHONE #: [phone] Exam Date: 11/01/2018 7106 FAX #: Reason: HEADACHE, R/O ANEURYSM EXAMS: CPT CODE: [id number] CTA HEAD 46561 EXAM: CT angiography of t he head and neck; INFORMATION: Headache, rule out aneurysm; TECHNIQUE AND FINDINGS: CT dose reduction protocol; Helical scans of the head and neck during intravenous infusion of contrast materia l. Multiplanar reconstructions were obtained. 3-D angiographic studi es were generated on an independent workstation, using volume rendering an d maximum intensity projection algorithms. Both common, internal and extra carotid arteries are patent. Mild atherosclerotic changes are seen at the origin of the internal carotid arteries but there is no evidence of signi ficant plaques or stenosis. The intracranial portions of the ICAs as well as both anterior and middle cerebral arteries are patent; no evidenc e of stenosis; A patent in the neck [...] Miranda CTDI: DLP: Trnscb Date/Hermilo e: 11/01/2018 (1665) [email or web address] Orig Print D/T: S: 019 (9259) CTDI: DLP: PAGE 1 Sign ed Report - CT HEAD/BRAIN W/O [id number] 16:12:00 Name: ROSITA MCGHEE [facility] : 1960 Age/S: 57 / F [address] Unit #: [id number] Loc: RAD[facility] Kra[place] [address] Phys: Ashley Delgado DO Acct: [id number] Dis Date: Status: REG ER PHONE #: [phone] Exam Date: 11/01/2018 1542 FAX #: [phone] Reason: HEADACHE EXAMS: CPT CODE: [id number] CT HEAD/BRAIN W/O CONT 02345 EXAM: CT of the head; INFORMATION: Headache; [...] Miranda CTDI: DLP: Trnscb Date/Time: 11/01/2018 (1612) [email or web address] Orig Print D/T: S: 11/01/2018 (1615) CTDI: DLP: PAGE 1 Signed Report BASIC METABOLIC [id number] 13:18:00* Test Item Value Reference Range Interpretation Comments SODIUM (test code = NA) 137 mmol/L 136-145 N POTASSIUM (test code = K) 4.4 mmol/L 3.5-5.1 N CHLORIDE (test code = CL) 106.0 mmol/L 98-107 N CARBON DIOXIDE (test code = CO2) 21.0 mmol/L 21-32 N ANION GAP (test code = GAP) 14.4 10-20 N GLUCOSE (test code = GLU) 184 mg/dL 74-106 H BLOOD UREA NITROGEN (test code = BUN) 20 mg/dL 7-18 H GLOMERULAR FILTRATION RATE (test code = GFR) > 60 mL/min >=60 Estimated GFR by using Modified MDRD formula.Chronic kidney disease is defined as either kidney damageor GFR <60 mL/min/1.73 m2 for >3 months. CREATININE (test code = CREAT) 0.80 mg/dL 0.55-1.02 N Note change in reference range due to change in reagent. BUN/CREATININE RATIO (test code = BUN/CREA) 24.7 10-20 H CALCIUM (test code = CA) 10.3 mg/dL 8.5-10.1 H [id number] 13:18:00* Test Item Value Reference Range Interpretation Comments TROPONIN-I (test code = TROPI) <0.015 ng/mL 0-0.045 N - XR CHEST 1 [id number] 13:12:00 FAX: Yves Nunez MD [phone] [place]: St: [facility] FAX: Ashley Delgado DO Name: MCGHEEROSITA [facility] : 1960 Age/S: 57/F [address] [facility] Unit #: [id number] Loc: [place] [address] Phys: Ashley Delgado DO Acct: [id number] Dis Date: Status: REG ER PHONE #: [phone] Exam Date: 11/01/2018 1309 FAX #: [phone] Reason: STROKE EXAMS: CPT CODE: [id number] XR CHEST 1 V 56758 HISTORY: Stroke. COMPARISON: November 17, 2016. No acute infiltrates, effusion or congestion is noted. The cardiac and mediastinal silhouette are within normal limits. IMPRESSION: No acute infiltrates, effusion or congestion. at 1312 Reported and signed by: Tanner Melendrez M.D. CC: Yves Gan MD; Ashley Delgado DO Technologist : RUPESH LOWERY RT (R) Trnscrd Date/Time/By: 0 11/01/2018 (8933) : By: [email or web address] Orig Print D/T: S: 11/01/2018 (7914) PAGE 1 Signed Report PROTHROMBIN [id number] 13:09:00* Test Item Value Reference Range Interpretation Comments PROTHROMBIN TIME PATIENT (test code = PTP) 11.5 seconds 9.0-14.0 N INTERNATIONAL NORMAL RATIO (test code = INR) 1.0 0.8-1.2 N The therapeutic range for oral anticoagulant therapy [...] (2.5-3.5) IS PATIENT ON ANTICOAGULANTS? NTHROMBOPLASTIN TIME [id number] 13:09:00* Test Item Value Reference Range Interpretation Comments THROMBOPLASTIN TIME PARTIAL (test code = PTT) 36.6 seconds 25.0-36. 5 H IS PATIENT ON ANTICOAGULANTS? NBASIC METABOLIC [id number] 13:07:00* Test Item Value Reference Range Interpretation Comments SODIUM (test code = NA) 137 mmol/L 136-145 N POTASSIUM (test code = K) 4.4 mmol/L 3.5-5.1 N CHLORIDE (test code = CL) 106.0 mmol/L 98-107 N CARBON DIOXIDE (test code = CO2) mmol/L 21-32 ANION GAP (test code = GAP) 10-20 GLUCOSE (test code = GLU) mg/dL 74-106 BLOOD UREA NITROGEN (test code = BUN) mg/dL 7-18 GLOMERULAR FILTRATION RATE (test code = GFR) mL/min >=60 CREATININE (test code = CREAT) mg/dL 0.55-1.02 BUN/CREATININE RATIO (test code = BUN/CREA) 10-20 CALCIUM (test code = CA) mg/dL 8.5-10.1 [id number]-[id number] 13:07:00* Test Item Value Reference Range Interpretation Comments TROPONIN-I (test code = TROPI) ng/mL 0-0.045 CBC W/AUTO [id number] 12:57:00* Test Item Value Reference Range Interpretation Comments WHITE BLOOD CELL (test code = WBC) K/mm3 4.5-12.5 RED BLOOD CELL (test code = RBC) mill/mm3 3.7-5.2 HEMOGLOBIN (test code = HGB) gram/dL 11.5-15.5 HEMATOCRIT (test code = HCT) 37.5 % 36.0-46.0 N MEAN CELL VOLUME (test code = MCV) fL 80-98 MEAN CELL HGB (test code = MCH) picogram 27.0-33.0 MEAN CELL HGB CONCETRATION (test code = MCHC) gram/dL 33.0-36. 0 RED CELL DISTRIBUTION WIDTH (test code = RDW) % 11.6-16. 2 RED CELL DISTRIBUTION WIDTH SD (test code = RDW-SD) fL 37 .0-51.0 PLATELET COUNT (test code = PLT) K/mm3 150-450 MEAN PLATELET VOLUME (test code = MPV) fL 6.7-11.0 NEUTROPHIL % (test code = NT%) % 39.0-69.0 IMMATURE GRANULOCYTE % (test code = IG%) % 0.0-5.0 LYMPHOCYTE % (test code = LY%) % 25.0-55.0 MONOCYTE % (test code = MO%) % 0.0-10.0 EOSINOPHIL % (test code = EO%) % 0.0-5.0 BASOPHIL % (test code = BA%) % 0.0-1.0 NEUTROPHIL # (test code = NT#) K/mm3 1.8-7.7 LYMPHOCYTE # (test code = LY#) K/mm3 1.0-5.0 MONOCYTE # (test code = MO#) K/mm3 0-0.8 EOSINOPHIL # (test code = EO#) K/mm3 0.0-0.5 BASOPHIL # (test code = BA#) K/mm3 0.0-0.2 CBC W/AUTO [id number] 12:57:00* Test Item Value Reference Range Interpretation Comments WHITE BLOOD CELL (test code = WBC) 13.8 K/mm3 4.5-12.5 H RED BLOOD CELL (test code = RBC) 4.86 mill/mm3 3.7-5.2 N HEMOGLOBIN (test code = HGB) 10.9 gram/dL 11.5-15.5 L HEMATOCRIT (test code = HCT) 37.5 % 36.0-46.0 N MEAN CELL VOLUME (test code = MCV) 77.2 fL 80-98 L MEAN CELL HGB (test code = MCH) 22.4 picogram 27.0-33.0 L MEAN CELL HGB CONCETRATION (test code = MCHC) 29.1 gram/dL 33.0-36. 0 L RED CELL DISTRIBUTION WIDTH (test code = RDW) 20.7 % 11.6-16. 2 H RED CELL DISTRIBUTION WIDTH SD (test code = RDW-SD) 56.4 fL 37 .0-51.0 H PLATELET COUNT (test code = PLT) 392 K/mm3 150-450 N MEAN PLATELET VOLUME (test code = MPV) 9.8 fL 6.7-11.0 N NEUTROPHIL % (test code = NT%) 74.7 % 39.0-69.0 H IMMATURE GRANULOCYTE % (test code = IG%) 0.7 % 0.0-5.0 N LYMPHOCYTE % (test code = LY%) 18.2 % 25.0-55.0 L MONOCYTE % (test code = MO%) 4.1 % 0.0-10.0 N EOSINOPHIL % (test code = EO%) 2.0 % 0.0-5.0 N BASOPHIL % (test code = BA%) 0.3 % 0.0-1.0 N NUCLEATED RBC % (test code = NRBC%) 0.0 % 0-0 N NEUTROPHIL # (test code = NT#) 10.30 K/mm3 1.8-7.7 H IMMATURE GRANULOCYTE # (test code = IG#) 0.09 x10 3/uL 0-0.03 H LYMPHOCYTE # (test code = LY#) 2.50 K/mm3 1.0-5.0 N MONOCYTE # (test code = MO#) 0.57 K/mm3 0-0.8 N EOSINOPHIL # (test code = EO#) 0.27 K/mm3 0.0-0.5 N BASOPHIL # (test code = BA#) 0.04 K/mm3 0.0-0.2 N NUCLEATED RBC # (test code = NRBC#) 0.00 K/mm3 0.0-0.1 N MANUAL DIFF REQUIRED (test code = MDIFF) NO Sodium Dvhtq8693-59-39 10:42:00* Test Item Value Reference Range Interpretation Comments Sodium Level (test code = 2951-2) 136 136-145 [facility]Potassium Sppsc5457-64-06 10:42:00* Test Item Value Reference Range Interpretation Comments Potassium Level (test code = 2823-3) 4.3 3.5-5.1 [facility] TexasChloride Buctr3706-62-39 10:42:00* Test Item Value Reference Range Interpretation Comments Chloride Level (test code = 2075-0) 107 98-107 [facility] TexasCarbon Dioxide Traic1585-66-52 10:42:00* Test Item Value Reference Range Interpretation Comments Carbon Dioxide Level (test code = 2028-9) 20 22-29 L [facility] TexasAnion Xic6202-94-12 10:42:00* Test Item Value Reference Range Interpretation Comments Anion Gap (test code = 18772-0) 13.3 8-16 [facility] TexasBlood Urea Cwkekwtj0178-65-36 10:42:00* Test Item Value Reference Range Interpretation Comments Blood Urea Nitrogen (test code = 3094-0) 19 7-26 [facility] TexasCreatinine2019-01-22 10:42:00* Test Item Value Reference Range Interpretation Comments Creatinine (test code = 2160-0) 0.71 0.57-1.11 [facility] TexasBUN/Creatinine Eptmt1837-52-67 10:42:00* Test Item Value Reference Range Interpretation Comments BUN/Creatinine Ratio (test code = 3097-3) 27 6-25 H [facility] TexasEstimat Glomerular Filtration Rate 2018-09-12 10:42:00* Test Item Value Reference Range Interpretation Comments Estimat Glomerular Filtration Rate (test code = 935284075) > 60 >60 Ranges were taken from the National Kidney Disease Education Program and the [facility] literature.Reference ranges:60 or greater: Qlmukv47-14 ( for 3 consecutive months): Chronic kidney disease 15 or less: Kidney failureThe Medical Center of Southeast TexasGlucose Aybil8209-41-62 10:42:00* Test Item Value Reference Range Interpretation Comments Glucose Level (test code = VSX3858) 87 74-118 [facility] TexasCalcium Dazao2733-27-34 10:42:00* Test Item Value Reference Range Interpretation Comments Calcium Level (test code = 73673-4) 9.4 8.4-10.2 [facility] TexasTotal Lnlvgscri4506-84-33 10:42:00* Test Item Value Reference Range Interpretation Comments Total Bilirubin (test code = 1975-2) 0.3 0.2-1.2 [facility] TexasAspartate Amino Transf (AST/SGOT) 2018-09-12 10:42:00* Test Item Value Reference Range Interpretation Comments Aspartate Amino Transf (AST/SGOT) (test code = Aspartate Amino Transf (AST/SGOT)) 13 5-34 [facility] TexasAlanine Aminotransferase (ALT/SGPT) 2018-09-12 10:42:00* Test Item Value Reference Range Interpretation Comments Alanine Aminotransferase (ALT/SGPT) (test code = 1742-6) 18 0-55 [facility] TexasTotal Rdgwmae9622-25-21 10:42:00* Test Item Value Reference Range Interpretation Comments Total Protein (test code = 2885-2) 7.4 6.5-8.1 [facility] TexasAlbumin2019-01-22 10:42:00* Test Item Value Reference Range Interpretation Comments Albumin (test code = 1751-7) 3.5 3.5-5.0 [facility] TexasGlobulin2019-01-22 10:42:00* Test Item Value Reference Range Interpretation Comments Globulin (test code = 38655-7) 3.9 2.3-3.5 H [facility] TexasAlbumin/Globulin Yitbx5348-58-54 10:42:00 * Test Item Value Reference Range Interpretation Comments Albumin/Globulin Ratio (test code = 1759-0) 0.9 0.8-2.0 [facility] TexasAlkaline Srlywhfsusc2109-25-60 10:42:00* Test Item Value Reference Range Interpretation Comments Alkaline Phosphatase (test code = 6768-6) 124 40-150 [facility] TexasWhite Blood Dnlnc2969-97-88 10:09:00* Test Item Value Reference Range Interpretation Comments White Blood Count (test code = 6690-2) 10.26 4.8-10.8 [facility] TexasRed Blood Lgkln4108-35-56 10:09:00* Test Item Value Reference Range Interpretation Comments Red Blood Count (test code = 789-8) 4.46 3.6-5.1 [facility] TexasHemoglobin2019-01-22 10:09:00* Test Item Value Reference Range Interpretation Comments Hemoglobin (test code = 99354-4) 9.2 12.0-16.0 L Previous lab work March 2018. 1009 on 09/12/[address] [facility] [place]Hematocrit2019-01-22 10:09:00* Test Item Value Reference Range Interpretation Comments Hematocrit (test code = 4544-3) 31.7 34.2-44.1 L [facility] TexasMean Corpuscular Asieji6322-85-57 10:09:00* Test Item Value Reference Range Interpretation Comments Mean Corpuscular Volume (test code = 787-2) 71.1 81-99 L [facility] TexasMean Corpuscular Uzzhvoymrf5900-46-52 10:09:00* Test Item Value Reference Range Interpretation Comments Mean Corpuscular Hemoglobin (test code = 785-6) 20.6 28-32 L [facility] TexasMean Corpuscular Hemoglobin Concent 2018-09-12 10:09:00* Test Item Value Reference Range Interpretation Comments Mean Corpuscular Hemoglobin Concent (test code = 786-4) 29.0 31-35 L [facility] TexasRed Cell Distribution Twwcf6239-08-02 10:09:00* Test Item Value Reference Range Interpretation Comments Red Cell Distribution Width (test code = 20854-6) 19.9 11.7 -14.4 H [facility] TexasPlatelet Ftcob1344-39-57 10:09:00* Test Item Value Reference Range Interpretation Comments Platelet Count (test code = 777-3) 407 140-360 H [facility] TexasNeutrophils (%) (Auto)2018-09-12 10:09:00 * Test Item Value Reference Range Interpretation Comments Neutrophils (%) (Auto) (test code = 98591-1) 67.1 38.7-80.0 [facility] TexasLymphocytes (%) (Auto)2018-09-12 10:09:00 * Test Item Value Reference Range Interpretation Comments Lymphocytes (%) (Auto) (test code = 736-9) 24.3 18.0-39.1 [facility] TexasMonocytes (%) (Auto)2018-09-12 10:09:00* Test Item Value Reference Range Interpretation Comments Monocytes (%) (Auto) (test code = 5905-5) 5.5 4.4-11.3 [facility] TexasEosinophils (%) (Auto)2018-09-12 10:09:00 * Test Item Value Reference Range Interpretation Comments Eosinophils (%) (Auto) (test code = 713-8) 2.3 0.0-6.0 [facility] TexasBasophils (%) (Auto)2018-09-12 10:09:00* Test Item Value Reference Range Interpretation Comments Basophils (%) (Auto) (test code = 706-2) 0.3 0.0-1.0 [facility] TexasIM GRANULOCYTES %2018-09-12 10:09:00* Test Item Value Reference Range Interpretation Comments IM GRANULOCYTES % (test code = IM GRANULOCYTES %) 0.5 0.0- 1.0 [facility] TexasNeutrophils # (Auto)2018-09-12 10:09:00* Test Item Value Reference Range Interpretation Comments Neutrophils # (Auto) (test code = 751-8) 6.9 2.1-6.9 [facility] TexasLymphocytes # (Auto)2018-09-12 10:09:00* Test Item Value Reference Range Interpretation Comments Lymphocytes # (Auto) (test code = 78163-8) 2.5 1.0-3.2 [facility] TexasMonocytes # (Auto)2018-09-12 10:09:00* Test Item Value Reference Range Interpretation Comments Monocytes # (Auto) (test code = 742-7) 0.6 0.2-0.8 [facility] TexasEosinophils # (Auto)2018-09-12 10:09:00* Test Item Value Reference Range Interpretation Comments Eosinophils # (Auto) (test code = 711-2) 0.2 0.0-0.4 [facility] TexasBasophils # (Auto)2018-09-12 10:09:00* Test Item Value Reference Range Interpretation Comments Basophils # (Auto) (test code = 704-7) 0.0 0.0-0.1 [facility] TexasAbsolute Immature Granulocyte (auto 2018-09-12 10:09:00* Test Item Value Reference Range Interpretation Comments Absolute Immature Granulocyte (auto (mallory t code = Absolute Immature Granulocyte (auto) 0.05 0-0.1 [facility] TexasUrine OQK1741-53-65 09:44:00* Test Item Value Reference Range Interpretation Comments Urine WBC (test code = 5821-4) NONE 0-5 [facility] TexasUrine XLA4465-03-78 09:44:00* Test Item Value Reference Range Interpretation Comments Urine RBC (test code = 53263-1) NONE 0-5 [facility] TexasUrine Dasamlvn9718-14-99 09:44:00* Test Item Value Reference Range Interpretation Comments Urine Bacteria (test code = 97153-5) RARE NONE [facility] TexasUrine Epithelial Xynzs3584-36-88 09:44:00 * Test Item Value Reference Range Interpretation Comments Urine Epithelial Cells (test code = 02357-2) RARE NONE [facility] TexasUrine Zabr0471-93-73 09:29:00* Test Item Value Reference Range Interpretation Comments Urine Test (test code = 2106-3) NEGATIVE NEGATIVE [facility] TexasUrine Npdwv8981-64-06 09:27:00* Test Item Value Reference Range Interpretation Comments Urine Color (test code = 5778-6) YELLOW YELLOW [facility] TexasUrine Kvndkvx3029-23-11 09:27:00* Test Item Value Reference Range Interpretation Comments Urine Clarity (test code = 02785-9) CLEAR CLEAR [facility] TexasUrine Specific Inmuvbk5239-62-63 09:27:00 * Test Item Value Reference Range Interpretation Comments Urine Specific Rush (test code = 5811-5) 1.005 1.010-1.02 5 L [facility] TexasUrine oA2398-62-72 09:27:00* Test Item Value Reference Range Interpretation Comments Urine pH (test code = 31953-2) 6 5-7 [facility] TexasU[facility] Leukocyte Pnfupgen9530-40-72 09:27:00* Test Item Value Reference Range Interpretation Comments Urine Leukocyte Esterase (test code = 5799-2) NEGATIVE NEGATIVE [facility] TexasUrine Rujsdyt9030-72-26 09:27:00* Test Item Value Reference Range Interpretation Comments Urine Nitrite (test code = 96960-3) NEGATIVE NEGATIVE [facility] TexasUrine Tojyjaw0135-16-26 09:27:00* Test Item Value Reference Range Interpretation Comments Urine Protein (test code = 5804-0) NEGATIVE NEGATIVE [facility] TexasUrine Glucose (UA)2018-09-12 09:27:00* Test Item Value Reference Range Interpretation Comments Urine Glucose (UA) (test code = 2349-9) NEGATIVE NEGATIVE [facility] TexasUrine Glrxfru8012-48-25 09:27:00* Test Item Value Reference Range Interpretation Comments Urine Ketones (test code = 92497-6) 1+ NEGATIVE H [facility] TexasUrine Bcxyqmkwjgjr8865-49-08 09:27:00* Test Item Value Reference Range Interpretation Comments Urine Urobilinogen (test code = 52289-2) 0.2 0.2-1 [facility] TexasUrine Wqbfdeosv1747-29-94 09:27:00* Test Item Value Reference Range Interpretation Comments Urine Bilirubin (test code = 1978-6) NEGATIVE NEGATIVE [facility] TexasUrine Kcuob5451-80-50 09:27:00* Test Item Value Reference Range Interpretation Comments Urine Blood (test code = 60687-6) NEGATIVE NEGATIVE [facility] TexasELBOW LEFT PJRBWBZU2088-68-64 07:43:00 [facility] [address] [place] [address] Patient Name: ROSITA MCGHEE MR #: [id number] D OB: 1960 Age/Sex: 57/F Req #: [id number] Adm Physic radha: Ordered by: BHAVANI ELLISON MD Report #: [id number] Location: ER Room/Bed: Procedure: [id number] DX/ELBOW LEFT COMPLETE Exam Date: 05/15/18 Exam [...] 7:43 Dict ated By: ЮЛИЯ BUTLER MD 2 COPY TO: BHAVANI ELLISON MD HIP LEFT 2-3 VW (+/- PELVIS)2018-05-15 07:36:00 [place] [address] Patient Name: ROSITA MCGHEE MR #: [id number] : 1960 Age/Sex: 57/F Req #: [id number] Adm Physician: Ordered by: BHAVANI ELLISON MD Report #: [id number] Location: ER Room/Bed: Procedure: [id number] DX/HIP LEFT 2-3 VW (+/ - PELVIS) [...] COPY TO: BHAVANI ELLISON MD SHOULDER RIGHT XTIUYZCE0981-21-44 07:34:00 [place] [address] Patient Name: ROSITA MCGHEE MR #: [id number] : 1960 Age/Sex: 57/F Req #: [id number] Adm Physician: Ordered by: BHAVANI ELLISON MD Report #: [id number] Location: ER Room/Bed: Procedure: [id number] DX/SHOULDER RIGHT COMP LETE Exam Date: 05/15/18 Exam Time: 0656 REPOR T STATUS: Signed PROCEDURE: X-RAY RIGHT [...] COPY TO: BHAVANI ELLISON MD SHOULDER LEFT LGGRZKFK5268-65-31 07:33:00 [place] [address] Patient Name: ROSITA MCGHEE MR #: [id number] : 1960 Age/Sex: 57/F Req #: [id number] Adm Physician: Ordered by: BHAVANI ELLISON MD Report #: [id number] Location: ER Room/Bed: Procedure: DX/SHOULDER LEFT COMPL ETE Exam Date: 05/15/18 Exam Time: 699 REPORT STATUS: Signed PROCEDURE: X-RAY LEFT SHOULDER, [...] at 7:33 Dictated By: ЮЛИЯ BUTLER MD Transcribed By: JASWANT on 05/15/18732 COPY TO: BHAVANI ELLISON MD HAND 3+ VIEWS FZZR8200-61-81 07:32:00 [place] [address] Patient Name: ROSITA MCGHEE MR #: [id number] : 1960 Age/Sex: 57/F Req #: [id number] Adm Physician: Ordered by: BHAVANI ELLISON MD Report #: [id number] Location: ER Room/Bed: Procedure: [id number] DX/HAND 3+ VIEWS LEFT Exam Date: 05/15/18 Exam Time: 0656 REPORT STA TUS: Signed PROCEDURE: X-RAY LEFT HAND, THREE OR MORE VIEWS COMPARISO N: None. INDICATIONS: s/p fall FINDINGS: No acute, displace d fracture or dislocation. Joint spaces are well-maintained. Soft tissues are unremarkable. CONCLUSION: No acute osseous abnormalities. Dictated by : Юлия Butler M.D. on 05/15/2018 at 7:32 Electronically approved by: Theo Butler M.D. on 05/15/2018 at 7:32 Dictated By: ЮЛИЯ BUTLER MD 1 Transcribed By: IN JONATHONE on 05/15/18731 COPY TO: BHAVANI ELLISON MD Sodium Level 2018-03-26 13:39:00* Test Item Value Reference Range Interpretation Comments Sodium Level (test code = 2951-2) 132 136-145 L [facility] TexasPotassium Ebzbq9600-37-82 13:39:00* Test Item Value Reference Range Interpretation Comments Potassium Level (test code = 2823-3) 4.2 3.5-5.1 [facility] TexasChloride Gkpzj9812-93-84 13:39:00* Test Item Value Reference Range Interpretation Comments Chloride Level (test code = 2075-0) 99 98-107 [facility] TexasCarbon Dioxide Umpux1928-53-72 13:39:00* Test Item Value Reference Range Interpretation Comments Carbon Dioxide Level (test code = 2028-9) 24 22-29 [facility] TexasAnion Ndh5993-28-12 13:39:00* Test Item Value Reference Range Interpretation Comments Anion Gap (test code = 25082-9) 13.2 8-16 [facility] TexasBlood Urea Hqrexjns5879-63-36 13:39:00* Test Item Value Reference Range Interpretation Comments Blood Urea Nitrogen (test code = 3094-0) 15 7-26 [facility] TexasCreatinine2018-08-05 13:39:00* Test Item Value Reference Range Interpretation Comments Creatinine (test code = 2160-0) 0.69 0.57-1.11 [facility] TexasBUN/Creatinine Qkdqs4142-57-58 13:39:00* Test Item Value Reference Range Interpretation Comments BUN/Creatinine Ratio (test code = 3097-3) 22 6-25 [facility] TexasEstimat Glomerular Filtration Rate 2018-03-26 13:39:00* Test Item Value Reference Range Interpretation Comments Estimat Glomerular Filtration Rate (test code = 89781-5) 60- >60 Ranges were taken from the National Kidney Disease Education Program and the [facility] literature.Reference ranges:60 or greater: Fxidnd00-11 ( for 3 consecutive months): Chronic kidney disease 15 or less: Kidney failureThe Medical Center of Southeast TexasGlucose Opmqq4177-98-74 13:39:00* Test Item Value Reference Range Interpretation Comments Glucose Level (test code = ZEU3471) 140 74-118 H [facility] TexasCalcium Cnjyf2155-36-96 13:39:00* Test Item Value Reference Range Interpretation Comments Calcium Level (test code = 78424-7) 9.8 8.4-10.2 [facility]odium Unwag1299-72-86 13:39:00* Test Item Value Reference Range Interpretation Comments Sodium Level (test code = 2951-2) 132 136-145 L [facility] TexasPotassium Biiaj6873-42-37 13:39:00* Test Item Value Reference Range Interpretation Comments Potassium Level (test code = 2823-3) 4.2 3.5-5.1 [facility] TexasChloride Cauqj1210-59-31 13:39:00* Test Item Value Reference Range Interpretation Comments Chloride Level (test code = 2075-0) 99 98-107 [facility] TexasCarbon Dioxide Oyubm8266-44-53 13:39:00* Test Item Value Reference Range Interpretation Comments Carbon Dioxide Level (test code = 2028-9) 24 - [facility] TexasAnion Gpm1399-09-62 13:39:00* Test Item Value Reference Range Interpretation Comments Anion Gap (test code = 87390-6) 13.2 8-16 [facility] TexasBlood Urea Rkortglh7432-43-09 13:39:00* Test Item Value Reference Range Interpretation Comments Blood Urea Nitrogen (test code = 3094-0) 15 7- [facility] TexasCreatinine2018-08-05 13:39:00* Test Item Value Reference Range Interpretation Comments Creatinine (test code = 2160-0) 0.69 0.57-1.11 [facility] TexasBUN/Creatinine Tixlh0367-69-85 13:39:00* Test Item Value Reference Range Interpretation Comments BUN/Creatinine Ratio (test code = 3097-3) 22 02-13 [facility] TexasEstimat Glomerular Filtration Rate 2018-03-26 13:39:00* Test Item Value Reference Range Interpretation Comments Estimat Glomerular Filtration Rate (test code = 529622386) 60- >60 Ranges were taken from the National Kidney Disease Education Program and the [facility] Kid[facility] Foundation literature.Reference ranges:60 or greater: Aiffqq20-00 ( for 3 consecutive months): Chronic kidney disease 15 or less: Kidney failureThe Medical Center of Southeast TexasGlucose Vszko2365-71-93 13:39:00* Test Item Value Reference Range Interpretation Comments Glucose Level (test code = ZAO2068) 140 74-118 H [facility] TexasCalcium Muoyr7347-74-61 13:39:00* Test Item Value Reference Range Interpretation Comments Calcium Level (test code = 62951-9) 9.8 8.4-10.2 [facility] TexasCT ABDOMEN/PELVIS JS8683-66-90 13:34:00 [facility] [address] [place] [address] Patient Name: ROSITA MCGHEE MR #: [id number] D OB: 1960 Age/Sex: 57/F Req #: [id number] Adm Physic radha: Ordered by: VERONICA ROCHE WELDING TEACHER Report #: [id number] Location: ER Room /Bed: Procedure: CT/CT ABDOMEN/PELVIS WO aTri koehler Date: 03/26/18 Exam Time: 1300 REPORT STATU [...] Soft tissues: Calcification or surgical clip in th e anterior abdominal wall is stable. IMPRESSION: 1. No evidence of renal calculus or obstructive uropathy. 2. No evidence for bowel obstruct ion or inflammation. 3. Stable postoperative changes of the upper abdomen. 4. Hepatic steatosis. Signed by: Dr. Alyssa Wilson MD on 03/26/2018 1:41 PM Dictated By: ALYSSA WILSON MD 1341 Transcribed By: CAROLYN on 03/26/18 1341 COPY TO: VERONICA ROCHE NP White Blood Fnfml6090-35-14 13:24:00* Test Item Value Reference Range Interpretation Comments White Blood Count (test code = 6690-2) 12.05 4.8-10.8 H [facility] TexasRed Blood Ghftg7733-05-31 13:24:00* Test Item Value Reference Range Interpretation Comments Red Blood Count (test code = 789-8) 4.62 3.6-5.1 [facility]Hemoglobin2018[facility] 13:24:00* Test Item Value Reference Range Interpretation Comments Hemoglobin (test code = 84069-4) 10.9 12.0-16.0 L [facility]Hematocrit2018-08-05 13:24:00* Test Item Value Reference Range Interpretation Comments Hematocrit (test code = 4544-3) 35.1 34.2-44.1 [facility] TexasMean Corpuscular Mfrglf7229-73-60 13:24:00* Test Item Value Reference Range Interpretation Comments Mean Corpuscular Volume (test code = 787-2) 76.0 81-99 L [facility]Mean Corpuscular Amksvlapyq9329-80-11 13:24:00* Test Item Value Reference Range Interpretation Comments Mean Corpuscular Hemoglobin (test code = 785-6) 23.6 28-32 L [facility]Mean Corpuscular Hemoglobin Concent 2018-03-26 13:24:00* Test Item Value Reference Range Interpretation Comments Mean Corpuscular Hemoglobin Concent (test code = 786-4) 31.1 31-35 [facility] TexasRed Cell Distribution Ppeua4471-82-90 13:24:00* Test Item Value Reference Range Interpretation Comments Red Cell Distribution Width (test code = 00556-4) 16.8 11.7 -14.4 H [facility] TexasPlatelet Onbml3293-95-46 13:24:00* Test Item Value Reference Range Interpretation Comments Platelet Count (test code = 777-3) 328 140-360 [facility] TexasNeutrophils (%) (Auto)2018-03-26 13:24:00 * Test Item Value Reference Range Interpretation Comments Neutrophils (%) (Auto) (test code = 67678-9) 73.2 38.7-80.0 [facility] TexasLymphocytes (%) (Auto)2018-03-26 13:24:00 * Test Item Value Reference Range Interpretation Comments Lymphocytes (%) (Auto) (test code = 736-9) 19.3 18.0-39.1 [facility] TexasMonocytes (%) (Auto)2018-03-26 13:24:00* Test Item Value Reference Range Interpretation Comments Monocytes (%) (Auto) (test code = 5905-5) 4.9 4.4-11.3 [facility]Eosinophils (%) (Auto)2018-03-26 13:24:00 * Test Item Value Reference Range Interpretation Comments Eosinophils (%) (Auto) (test code = 713-8) 1.9 0.0-6.0 [facility]Basophils (%) (Auto)2018-03-26 13:24:00* Test Item Value Reference Range Interpretation Comments Basophils (%) (Auto) (test code = 706-2) 0.3 0.0-1.0 [facility] TexasIM GRANULOCYTES %2018-03-26 13:24:00* Test Item Value Reference Range Interpretation Comments IM GRANULOCYTES % (test code = IM GRANULOCYTES %) 0.4 0.0- 1.0 [facility] TexasNeutrophils # (Auto)2018-03-26 13:24:00* Test Item Value Reference Range Interpretation Comments Neutrophils # (Auto) (test code = 751-8) 8.8 2.1-6.9 H [facility] TexasLymphocytes # (Auto)2018-03-26 13:24:00* Test Item Value Reference Range Interpretation Comments Lymphocytes # (Auto) (test code = 82549-4) 2.3 1.0-3.2 [facility] TexasMonocytes # (Auto)2018-03-26 13:24:00* Test Item Value Reference Range Interpretation Comments Monocytes # (Auto) (test code = 742-7) 0.6 0.2-0.8 [facility] [place]Eosinophils # (Auto)2018-03-26 13:24:00* Test Item Value Reference Range Interpretation Comments Eosinophils # (Auto) (test code = 711-2) 0.2 0.0-0.4 [facility] [place]Basophils # (Auto)2018-03-26 13:24:00* Test Item Value Reference Range Interpretation Comments Basophils # (Auto) (test code = 704-7) 0.0 0.0-0.1 [facility] TexasAbsolute Immature Granulocyte (auto 2018-03-26 13:24:00* Test Item Value Reference Range Interpretation Comments Absolute Immature Granulocyte (auto (mallory t code = Absolute Immature Granulocyte (auto) 0.05 0-0.1 [facility] TexasWhite Blood Sgguc1848-98-65 13:24:00* Test Item Value Reference Range Interpretation Comments White Blood Count (test code = 6690-2) 12.05 4.8-10.8 H [facility] TexasRed Blood Wkfjn5131-13-08 13:24:00* Test Item Value Reference Range Interpretation Comments Red Blood Count (test code = 789-8) 4.62 3.6-5.1 [facility] TexasHemoglobin2018-08-05 13:24:00* Test Item Value Reference Range Interpretation Comments Hemoglobin (test code = 40190-6) 10.9 12.0-16.0 L [facility] TexasHematocrit2018-08-05 13:24:00* Test Item Value Reference Range Interpretation Comments Hematocrit (test code = 4544-3) 35.1 34.2-44.1 [facility] TexasMean Corpuscular Xujikh4591-04-44 13:24:00* Test Item Value Reference Range Interpretation Comments Mean Corpuscular Volume (test code = 787-2) 76.0 81-99 L [facility] [place]Mean Corpuscular Fonqnbtxdc6579-19-17 13:24:00* Test Item Value Reference Range Interpretation Comments Mean Corpuscular Hemoglobin (test code = 785-6) 23.6 28-32 L [facility] TexasMean Corpuscular Hemoglobin Concent 2018-03-26 13:24:00* Test Item Value Reference Range Interpretation Comments Mean Corpuscular Hemoglobin Concent (test code = 786-4) 31.1 31-35 [facility] TexasRed Cell Distribution Ebbqy9025-26-27 13:24:00* Test Item Value Reference Range Interpretation Comments Red Cell Distribution Width (test code = 12213-5) 16.8 11.7 -14.4 H [facility] TexasPlatelet Bbevu9154-36-12 13:24:00* Test Item Value Reference Range Interpretation Comments Platelet Count (test code = 777-3) 328 140-360 [facility] TexasNeutrophils (%) (Auto)2018-03-26 13:24:00 * Test Item Value Reference Range Interpretation Comments Neutrophils (%) (Auto) (test code = 95541-1) 73.2 38.7-80.0 [facility] TexasLymphocytes (%) (Auto)2018-03-26 13:24:00 * Test Item Value Reference Range Interpretation Comments Lymphocytes (%) (Auto) (test code = 736-9) 19.3 18.0-39.1 [facility] TexasMonocytes (%) (Auto)2018-03-26 13:24:00* Test Item Value Reference Range Interpretation Comments Monocytes (%) (Auto) (test code = 5905-5) 4.9 4.4-11.3 [facility] TexasEosinophils (%) (Auto)2018-03-26 13:24:00 * Test Item Value Reference Range Interpretation Comments Eosinophils (%) (Auto) (test code = 713-8) 1.9 0.0-6.0 [facility] [place]Basophils (%) (Auto)2018-03-26 13:24:00* Test Item Value Reference Range Interpretation Comments Basophils (%) (Auto) (test code = 706-2) 0.3 0.0-1.0 [facility] TexasIM GRANULOCYTES %2018-03-26 13:24:00* Test Item Value Reference Range Interpretation Comments IM GRANULOCYTES % (test code = IM GRANULOCYTES %) 0.4 0.0- 1.0 [facility] TexasNeutrophils # (Auto)2018-03-26 13:24:00* Test Item Value Reference Range Interpretation Comments Neutrophils # (Auto) (test code = 751-8) 8.8 2.1-6.9 H [facility] TexasLymphocytes # (Auto)2018-03-26 13:24:00* Test Item Value Reference Range Interpretation Comments Lymphocytes # (Auto) (test code = 57673-9) 2.3 1.0-3.2 [facility] TexasMonocytes # (Auto)2018-03-26 13:24:00* Test Item Value Reference Range Interpretation Comments Monocytes # (Auto) (test code = 742-7) 0.6 0.2-0.8 [facility] [place]Eosinophils # (Auto)2018-03-26 13:24:00* Test Item Value Reference Range Interpretation Comments Eosinophils # (Auto) (test code = 711-2) 0.2 0.0-0.4 [facility] [place]Basophils # (Auto)2018-03-26 13:24:00* Test Item Value Reference Range Interpretation Comments Basophils # (Auto) (test code = 704-7) 0.0 0.0-0.1 [facility] TexasAbsolute Immature Granulocyte (auto 2018-03-26 13:24:00* Test Item Value Reference Range Interpretation Comments Absolute Immature Granulocyte (auto (mallory t code = Absolute Immature Granulocyte (auto) 0.05 0-0.1 [facility] TexasUrine RDQ0199-68-94 11:50:00* Test Item Value Reference Range Interpretation Comments Urine WBC (test code = 5821-4) 0-5 0-5 [facility] TexasUrine WFP5139-23-46 11:50:00* Test Item Value Reference Range Interpretation Comments Urine RBC (test code = 77662-1) 0-5 0-5 [facility] TexasUrine Jkosjrow4890-84-27 11:50:00* Test Item Value Reference Range Interpretation Comments Urine Bacteria (test code = 21992-0) FEW NONE [facility] TexasUrine Epithelial Ueriz4640-70-33 11:50:00 * Test Item Value Reference Range Interpretation Comments Urine Epithelial Cells (test code = 94105-4) FEW NONE [facility] TexasUrine YNT4524-23-45 11:50:00* Test Item Value Reference Range Interpretation Comments Urine WBC (test code = 5821-4) 0-5 0-5 [facility] TexasUrine MRM0738-88-35 11:50:00* Test Item Value Reference Range Interpretation Comments Urine RBC (test code = 57703-8) 0-5 0-5 [facility] Yctfueuo6447-37-40 11:50:00* Test Item Value Reference Range Interpretation Comments Urine Bacteria (test code = 53196-4) FEW NONE [facility] Epithelial Xjcfk8993-11-56 11:50:00 * Test Item Value Reference Range Interpretation Comments Urine Epithelial Cells (test code = 29412-4) FEW NONE [facility] TexasU[facility] Tyjms4857-73-46 11:47:00* Test Item Value Reference Range Interpretation Comments Urine Color (test code = 5778-6) YELLOW YELLOW [facility] Zbrmqkb1307-30-40 11:47:00* Test Item Value Reference Range Interpretation Comments Urine Clarity (test code = 66183-5) CLEAR CLEAR [facility] TexasUrine Specific Cjimghw5603-22-13 11:47:00 * Test Item Value Reference Range Interpretation Comments Urine Specific Rush (test code = 5811-5) 1.020 1.010-1.02 5 [facility] TexasUrine kO3569-83-63 11:47:00* Test Item Value Reference Range Interpretation Comments Urine pH (test code = 05803-9) 5 5-7 [facility] Leukocyte Npgxyngt4401-69-17 11:47:00* Test Item Value Reference Range Interpretation Comments Urine Leukocyte Esterase (test code = 5799-2) NEGATIVE NEGATIVE [facility] Pdufdxw3211-20-08 11:47:00* Test Item Value Reference Range Interpretation Comments Urine Nitrite (test code = 94096-3) NEGATIVE NEGATIVE [facility] Wsqieox6074-45-64 11:47:00* Test Item Value Reference Range Interpretation Comments Urine Protein (test code = 5804-0) NEGATIVE NEGATIVE [facility]Urine Glucose (UA)2018-03-26 11:47:00* Test Item Value Reference Range Interpretation Comments Urine Glucose (UA) (test code = 2349-9) NEGATIVE NEGATIVE [facility] TexasUrine Mlzbsqn5846-86-13 11:47:00* Test Item Value Reference Range Interpretation Comments Urine Ketones (test code = 84255-4) NEGATIVE NEGATIVE [facility] Cwhnupcpjlgh6372-61-63 11:47:00* Test Item Value Reference Range Interpretation Comments Urine Urobilinogen (test code = 00793-3) 0.2 0.2-1 [facility]Urine Pkzglsytm2263-62-22 11:47:00* Test Item Value Reference Range Interpretation Comments Urine Bilirubin (test code = 1978-6) NEGATIVE NEGATIVE [facility] Aozas5876-07-75 11:47:00* Test Item Value Reference Range Interpretation Comments Urine Blood (test code = 89232-1) NEGATIVE NEGATIVE [facility] Aydps9459-00-19 11:47:00* Test Item Value Reference Range Interpretation Comments Urine Color (test code = 5778-6) YELLOW YELLOW [facility] Vwxviiq9207-55-40 11:47:00* Test Item Value Reference Range Interpretation Comments Urine Clarity (test code = 90896-0) CLEAR CLEAR [facility]Urine Specific Wfcwkpn3229-41-17 11:47:00 * Test Item Value Reference Range Interpretation Comments Urine Specific [place] (test code = 5811-5) 1.020 1.010-1.02 5 [facility]Urine aN1150-00-04 11:47:00* Test Item Value Reference Range Interpretation Comments Urine pH (test code = 43930-6) 5 5-7 [facility] Leukocyte Xjshzppa0109-76-39 11:47:00* Test Item Value Reference Range Interpretation Comments Urine Leukocyte Esterase (test code = 5799-2) NEGATIVE NEGATIVE [facility] Eukxymu3230-02-58 11:47:00* Test Item Value Reference Range Interpretation Comments Urine Nitrite (test code = 47863-1) NEGATIVE NEGATIVE [facility] Mqhmvmw5661-83-35 11:47:00* Test Item Value Reference Range Interpretation Comments Urine Protein (test code = 5804-0) NEGATIVE NEGATIVE [facility] Glucose (UA)2018-03-26 11:47:00* Test Item Value Reference Range Interpretation Comments Urine Glucose (UA) (test code = 2349-9) NEGATIVE NEGATIVE [facility] TexasUrine Xpfhehe1122-79-55 11:47:00* Test Item Value Reference Range Interpretation Comments Urine Ketones (test code = 19838-0) NEGATIVE NEGATIVE [facility] Jagklbqyoyqn6828-12-63 11:47:00* Test Item Value Reference Range Interpretation Comments Urine Urobilinogen (test code = 68084-8) 0.2 0.2-1 [facility]Urine Vxlqfkdal0429-07-02 11:47:00* Test Item Value Reference Range Interpretation Comments Urine Bilirubin (test code = 1978-6) NEGATIVE NEGATIVE [facility] TexasU[facility] Buzpr8208-70-43 11:47:00* Test Item Value Reference Range Interpretation Comments Urine Blood (test code = 88162-7) NEGATIVE NEGATIVE [facility] TexasCreatine Kinase PP4892-82-73 23:10:00* Test Item Value Reference Range Interpretation Comments Creatine Kinase MB (test code = 03227-7) 0.70 0-5.0 [place] 87909018-06-13 23:10:00* Test Item Value Reference Range Interpretation Comments Troponin I (test code = SGE3496) -0.001 0-0.300 [facility] TexasCreatine Kinase FE0942-19-04 23:10:00* Test Item Value Reference Range Interpretation Comments Creatine Kinase MB (test code = 54268-2) 0.70 0-5.0 [place] 87909018-06-13 23:10:00* Test Item Value Reference Range Interpretation Comments Troponin I (test code = PSP8339) -0.001 0-0.300 [facility] TexasCreatine Kinase DB1918-03-23 23:10:00* Test Item Value Reference Range Interpretation Comments Creatine Kinase MB (test code = 34274-2) 0.70 0-5.0 [place] 87909018-06-13 23:10:00* Test Item Value Reference Range Interpretation Comments Troponin I (test code = OSY3255) -0.001 0-0.300 [facility] TexasCreatine Kinase QR9873-04-17 23:10:00* Test Item Value Reference Range Interpretation Comments Creatine Kinase MB (test code = 76737-3) 0.70 0-5.0 [place] 87909018-06-13 23:10:00* Test Item Value Reference Range Interpretation Comments Troponin I (test code = YZR2616) < 0.001 0-0.300 [facility] TexasCHES SINGLE (PORTABLE)2018-02-01 23:07:00 [facility] [address] [address] Patient Name: ROSITA MCGHEE MR #: [id number] : 1960 Age/Sex: 57/F Req #: [id number] Adm Physician: Ordered by: LAVERN HYLTON MD Report #: [id number] Location: ER Room/Bed: Procedure: [id number] DX/CHEST SINGLE (PORTABLE) Exam Date: Exam Time: [...] on 02/01/182307 COPY TO: LAVERN HYLTON MD Sodium Level 2018-02-01 23:01:00* Test Item Value Reference Range Interpretation Comments Sodium Level (test code = 2951-2) 141 136-145 [facility]Potassium Krxzj3840-09-96 23:01:00* Test Item Value Reference Range Interpretation Comments Potassium Level (test code = 2823-3) 4.3 3.5-5.1 [facility] TexasChloride Nyqzb4425-15-25 23:01:00* Test Item Value Reference Range Interpretation Comments Chloride Level (test code = 2075-0) 110 98-107 H [facility] TexasCarbon Dioxide Cyuwo7374-87-45 23:01:00* Test Item Value Reference Range Interpretation Comments Carbon Dioxide Level (test code = 2028-9) 20 22-29 L [facility] TexasAnion Ats3218-91-03 23:01:00* Test Item Value Reference Range Interpretation Comments Anion Gap (test code = 05404-4) 15.3 8-16 [facility] TexasBlood Urea Oybrwbzs2699-05-26 23:01:00* Test Item Value Reference Range Interpretation Comments Blood Urea Nitrogen (test code = 3094-0) 25 7-26 [facility] TexasCreatinine2018-06-13 23:01:00* Test Item Value Reference Range Interpretation Comments Creatinine (test code = 2160-0) 0.85 0.57-1.11 [facility] TexasBUN/Creatinine Fmrfb8078-12-82 23:01:00* Test Item Value Reference Range Interpretation Comments BUN/Creatinine Ratio (test code = 3097-3) 29 6-25 H [facility] TexasEstimat Glomerular Filtration Rate 2018-02-01 23:01:00* Test Item Value Reference Range Interpretation Comments Estimat Glomerular Filtration Rate (test code = 91778-4) 60- >60 Ranges were taken from the National Kidney Disease Education Program and the [facility] [employer] literature.Reference ranges:60 or greater: Fkhjsi09-71 ( for 3 consecutive months): Chronic kidney disease 15 or less: Kidney failureThe [facility] of [facility] TexasGlucose Azxlk4507-96-22 23:01:00* Test Item Value Reference Range Interpretation Comments Glucose Level (test code = REM7252) 148 74-118 H [facility] TexasCalcium Muhvh0323-08-31 23:01:00* Test Item Value Reference Range Interpretation Comments Calcium Level (test code = 24338-4) 10.2 8.4-10.2 [facility] TexasMagnesium Hvupw0192-38-67 23:01:00* Test Item Value Reference Range Interpretation Comments Magnesium Level (test code = 45322-2) 1.5 1.3-2.1 [facility] TexasTotal Ixkmxqgrn7617-41-34 23:01:00* Test Item Value Reference Range Interpretation Comments Total Bilirubin (test code = 1975-2) 0.2 0.2-1.2 [facility] TexasAspartate Amino Transf (AST/SGOT) 2018-02-01 23:01:00* Test Item Value Reference Range Interpretation Comments Aspartate Amino Transf (AST/SGOT) (test code = Aspartate Amino Transf (AST/SGOT)) 15 5-34 [facility] TexasAlanine Aminotransferase (ALT/SGPT) 2018-02-01 23:01:00* Test Item Value Reference Range Interpretation Comments Alanine Aminotransferase (ALT/SGPT) (test code = 1742-6) 20 0-55 [facility] TexasTotal Xjixole5570-90-21 23:01:00* Test Item Value Reference Range Interpretation Comments Total Protein (test code = 2885-2) 7.6 6.5-8.1 [facility] TexasAlbumin2018-06-13 23:01:00* Test Item Value Reference Range Interpretation Comments Albumin (test code = 1751-7) 3.8 3.5-5.0 [facility] TexasGlobulin2018-06-13 23:01:00* Test Item Value Reference Range Interpretation Comments Globulin (test code = 65225-7) 3.8 2.3-3.5 H [facility] TexasAlbumin/Globulin Qchol9248-10-61 23:01:00 * Test Item Value Reference Range Interpretation Comments Albumin/Globulin Ratio (test code = 1759-0) 1.0 0.8-2.0 [facility] TexasAlkaline Riudcxuiuje5491-68-53 23:01:00* Test Item Value Reference Range Interpretation Comments Alkaline Phosphatase (test code = 6768-6) 141 40-150 [facility] TexasCreatine Znayvh6184-79-08 23:01:00* Test Item Value Reference Range Interpretation Comments Creatine Kinase (test code = 2157-6) 91 29-168 [facility] TexasAmylase Gqinb7366-29-83 23:01:00* Test Item Value Reference Range Interpretation Comments Amylase Level (test code = 1798-8) 189 25-125 H [facility] TexasLipase2018-06-13 23:01:00* Test Item Value Reference Range Interpretation Comments Lipase (test code = 3040-3) 117 8-78 H [facility] TexasMagnesium Ckbso3519-12-26 23:01:00* Test Item Value Reference Range Interpretation Comments Magnesium Level (test code = 80869-6) 1.5 1.3-2.1 [facility] TexasTotal Pvrgeqtma6040-74-65 23:01:00* Test Item Value Reference Range Interpretation Comments Total Bilirubin (test code = 1975-2) 0.2 0.2-1.2 [facility] TexasAspartate Amino Transf (AST/SGOT) 2018-02-01 23:01:00* Test Item Value Reference Range Interpretation Comments Aspartate Amino Transf (AST/SGOT) (test code = Aspartate Amino Transf (AST/SGOT)) 15 5-34 [facility] TexasAlanine Aminotransferase (ALT/SGPT) 2018-02-01 23:01:00* Test Item Value Reference Range Interpretation Comments Alanine Aminotransferase (ALT/SGPT) (test code = 1742-6) 20 0-55 [facility] TexasTotal Sdbdtzi7615-69-23 23:01:00* Test Item Value Reference Range Interpretation Comments Total Protein (test code = 2885-2) 7.6 6.5-8.1 [facility] TexasAlbumin2018-06-13 23:01:00* Test Item Value Reference Range Interpretation Comments Albumin (test code = 1751-7) 3.8 3.5-5.0 [facility] TexasGlobulin2018-06-13 23:01:00* Test Item Value Reference Range Interpretation Comments Globulin (test code = 39439-5) 3.8 2.3-3.5 H [facility] TexasAlbumin/Globulin Jlmdi8885-64-16 23:01:00 * Test Item Value Reference Range Interpretation Comments Albumin/Globulin Ratio (test code = 1759-0) 1.0 0.8-2.0 [facility] TexasAlkaline Owrykopwrps8968-28-18 23:01:00* Test Item Value Reference Range Interpretation Comments Alkaline Phosphatase (test code = 6768-6) 141 40-150 [facility] TexasCreatine Cbbutz3351-16-01 23:01:00* Test Item Value Reference Range Interpretation Comments Creatine Kinase (test code = 2157-6) 91 29-168 [facility] TexasAmylase Bxggm6423-53-89 23:01:00* Test Item Value Reference Range Interpretation Comments Amylase Level (test code = 1798-8) 189 25-125 H [facility] TexasLipase2018-06-13 23:01:00* Test Item Value Reference Range Interpretation Comments Lipase (test code = 3040-3) 117 8-78 H [facility] TexasMagnesium Esuyx7933-90-56 23:01:00* Test Item Value Reference Range Interpretation Comments Magnesium Level (test code = 56860-7) 1.5 1.3-2.1 [facility] TexasTotal Gpzeckird5093-66-17 23:01:00* Test Item Value Reference Range Interpretation Comments Total Bilirubin (test code = 1975-2) 0.2 0.2-1.2 [facility] TexasAspartate Amino Transf (AST/SGOT) 2018-02-01 23:01:00* Test Item Value Reference Range Interpretation Comments Aspartate Amino Transf (AST/SGOT) (test code = Aspartate Amino Transf (AST/SGOT)) 15 5-34 [facility] TexasAlanine Aminotransferase (ALT/SGPT) 2018-02-01 23:01:00* Test Item Value Reference Range Interpretation Comments Alanine Aminotransferase (ALT/SGPT) (test code = 1742-6) 20 0-55 [facility] TexasTotal Sejyxak5998-33-40 23:01:00* Test Item Value Reference Range Interpretation Comments Total Protein (test code = 2885-2) 7.6 6.5-8.1 [facility] TexasAlbumin2018-06-13 23:01:00* Test Item Value Reference Range Interpretation Comments Albumin (test code = 1751-7) 3.8 3.5-5.0 [facility] TexasGlobulin2018-06-13 23:01:00* Test Item Value Reference Range Interpretation Comments Globulin (test code = 74679-5) 3.8 2.3-3.5 H [facility] TexasAlbumin/Globulin Vqaye0019-59-49 23:01:00 * Test Item Value Reference Range Interpretation Comments Albumin/Globulin Ratio (test code = 1759-0) 1.0 0.8-2.0 [facility] TexasAlkaline Emucmhpkfua5374-33-64 23:01:00* Test Item Value Reference Range Interpretation Comments Alkaline Phosphatase (test code = 6768-6) 141 40-150 [facility] TexasCreatine Rifolg6691-40-84 23:01:00* Test Item Value Reference Range Interpretation Comments Creatine Kinase (test code = 2157-6) 91 29-168 [facility] TexasAmylase Jvzmt3382-51-01 23:01:00* Test Item Value Reference Range Interpretation Comments Amylase Level (test code = 1798-8) 189 25-125 H [facility] TexasLipase2018-06-13 23:01:00* Test Item Value Reference Range Interpretation Comments Lipase (test code = 3040-3) 117 8-78 H [facility] [place] Xyexc1760-18-51 23:01:00* Test Item Value Reference Range Interpretation Comments Magnesium Level (test code = 07655-4) 1.5 1.3-2.1 [facility] TexasCreatine Laeuyf4676-07-21 23:01:00* Test Item Value Reference Range Interpretation Comments Creatine Kinase (test code = 2157-6) 91 29-168 [facility] TexasAmylase Dafyu8973-22-19 23:01:00* Test Item Value Reference Range Interpretation Comments Amylase Level (test code = 1798-8) 189 25-125 H [facility] TexasLipase2018-06-13 23:01:00* Test Item Value Reference Range Interpretation Comments Lipase (test code = 3040-3) 117 8-78 H [facility] TexasCT ABDOMEN/PELVIS EN2089-00-94 22:57:00 [facility] [address] [address] Patient Name: ROSIAT MCGHEE MR #: [id number] OB: 1960 Age/Sex: 57/F Req #: [id number] Adm Physic radha: Ordered by: LAVERN HYLTON MD Report #: [id number] Location: ER Room /Bed: Procedure: [id number] CT/CT ABDOMEN/PELVIS Date: Exam Time: REPORT STATUS: [...] on 02/01/182306 COPY TO: LAVERN HYLTON MD Urine RKH0986-18-14 22:54:00* Test Item Value Reference Range Interpretation Comments Urine WBC (test code = 5821-4) 0-5 0-5 [facility] TexasUrine MFX4187-05-44 22:54:00* Test Item Value Reference Range Interpretation Comments Urine RBC (test code = 78860-1) NONE 0-5 [facility] TexasUrine Xcmnwvuw7216-39-34 22:54:00* Test Item Value Reference Range Interpretation Comments Urine Bacteria (test code = 67578-4) MODERATE NONE H [facility] [place]U[facility] Epithelial Zeweg9486-06-24 22:54:00 * Test Item Value Reference Range Interpretation Comments Urine Epithelial Cells (test code = 09631-8) MODERATE NONE [facility] TexasUrine Xewls5470-82-31 22:44:00* Test Item Value Reference Range Interpretation Comments Urine Color (test code = 5778-6) YELLOW YELLOW [facility] TexasUrine Idzosqf9532-98-02 22:44:00* Test Item Value Reference Range Interpretation Comments Urine Clarity (test code = 07750-9) CLEAR CLEAR [facility] [place]Urine Specific Zpfmbgw8453-38-06 22:44:00 * Test Item Value Reference Range Interpretation Comments Urine Specific Rush (test code = 5811-5) 1.025 1.010-1.02 5 [facility] TexasUrine nY1978-27-70 22:44:00* Test Item Value Reference Range Interpretation Comments Urine pH (test code = 78339-8) 6 5-7 [facility] [place]U[facility] Leukocyte Ankinwfi0755-19-23 22:44:00* Test Item Value Reference Range Interpretation Comments Urine Leukocyte Esterase (test code = 5799-2) NEGATIVE NEGATIVE [facility] TexasUrine Otbraso4391-02-25 22:44:00* Test Item Value Reference Range Interpretation Comments Urine Nitrite (test code = 86006-8) NEGATIVE NEGATIVE [facility] TexasUrine Widzhoa0982-12-23 22:44:00* Test Item Value Reference Range Interpretation Comments Urine Protein (test code = 5804-0) NEGATIVE NEGATIVE [facility] TexasUrine Glucose (UA)2018-02-01 22:44:00* Test Item Value Reference Range Interpretation Comments Urine Glucose (UA) (test code = 2349-9) NEGATIVE NEGATIVE [facility] TexasUrine Eorkczi9819-95-40 22:44:00* Test Item Value Reference Range Interpretation Comments Urine Ketones (test code = 67322-1) TRACE NEGATIVE H [facility] TexasUrine Vvknxszwhcbs6960-20-88 22:44:00* Test Item Value Reference Range Interpretation Comments Urine Urobilinogen (test code = 84726-4) 0.2 0.2-1 [facility] TexasUrine Cickwptry5909-06-99 22:44:00* Test Item Value Reference Range Interpretation Comments Urine Bilirubin (test code = 1978-6) NEGATIVE NEGATIVE [facility] TexasUrine Klxyz7557-47-99 22:44:00* Test Item Value Reference Range Interpretation Comments Urine Blood (test code = 04222-8) NEGATIVE NEGATIVE [facility] TexasProthrombin Devs1744-09-87 22:42:00* Test Item Value Reference Range Interpretation Comments Prothrombin Time (test code = 5902-2) 12.1 11.9-14.5 [facility] TexasProthromb Time International Ratio 2018-02-01 22:42:00* Test Item Value Reference Range Interpretation Comments Prothromb Time International Ratio (test code = 6301-6) 0.97 Oral Anticoagulant Therapy INR Values:1. Low Intensity Therapy 1.5 - 2.02 . Moderate Intensity Therapy 2.0 - 3.03. High Intensity Therapy(1) 2.5 - 3. 54. High Intensity Therapy(2) 3.0 - 4.05. Panic Value INR > 5.0 [facility] TexasActivated Partial Thromboplast Time 2018-02-01 22:42:00* Test Item Value Reference Range Interpretation Comments Activated Partial Thromboplast Time (test code = 00899-6) 31.4 23.8-35.5 [facility] TexasProthrombin Aifd2726-13-24 22:42:00* Test Item Value Reference Range Interpretation Comments Prothrombin Time (test code = 5902-2) 12.1 11.9-14.5 [facility] TexasProthromb Time International Ratio 2018-02-01 22:42:00* Test Item Value Reference Range Interpretation Comments Prothromb Time International Ratio (test code = 6301-6) 0.97 Oral Anticoagulant Therapy INR Values:1. Low Intensity Therapy 1.5 - 2.02 . Moderate Intensity Therapy 2.0 - 3.03. High Intensity Therapy(1) 2.5 - 3. 54. High Intensity Therapy(2) 3.0 - 4.05. Panic Value INR > 5.0 [facility] TexasActivated Partial Thromboplast Time 2018-02-01 22:42:00* Test Item Value Reference Range Interpretation Comments Activated Partial Thromboplast Time (test code = 51302-6) 31.4 23.8-35.5 [facility] TexasProthrombin Vzed4067-67-27 22:42:00* Test Item Value Reference Range Interpretation Comments Prothrombin Time (test code = 5902-2) 12.1 11.9-14.5 [facility] TexasProthromb Time International Ratio 2018-02-01 22:42:00* Test Item Value Reference Range Interpretation Comments Prothromb Time International Ratio (test code = 6301-6) 0.97 Oral Anticoagulant Therapy INR Values:1. Low Intensity Therapy 1.5 - 2.02 . Moderate Intensity Therapy 2.0 - 3.03. High Intensity Therapy(1) 2.5 - 3. 54. High Intensity Therapy(2) 3.0 - 4.05. Panic Value INR > 5.0 [facility] TexasActivated Partial Thromboplast Time 2018-02-01 22:42:00* Test Item Value Reference Range Interpretation Comments Activated Partial Thromboplast Time (test code = 15325-5) 31.4 23.8-35.5 [facility] TexasProthrombin Zkrw8213-84-03 22:42:00* Test Item Value Reference Range Interpretation Comments Prothrombin Time (test code = 5902-2) 12.1 11.9-14.5 [facility] TexasProthromb Time International Ratio 2018-02-01 22:42:00* Test Item Value Reference Range Interpretation Comments Prothromb Time International Ratio (test code = 6301-6) 0.97 Oral Anticoagulant Therapy INR Values:1. Low Intensity Therapy 1.5 - 2.02 . Moderate Intensity Therapy 2.0 - 3.03. High Intensity Therapy(1) 2.5 - 3. 54. High Intensity Therapy(2) 3.0 - 4.05. Panic Value INR > 5.0 [facility] TexasActivated Partial Thromboplast Time 2018-02-01 22:42:00* Test Item Value Reference Range Interpretation Comments Activated Partial Thromboplast Time (test code = 76288-6) 31.4 23.8-35.5 [facility] TexasWhite Blood Zrvzs6128-39-36 22:36:00* Test Item Value Reference Range Interpretation Comments White Blood Count (test code = 6690-2) 13.53 4.8-10.8 H [facility] TexasRed Blood Njtgq4353-51-20 22:36:00* Test Item Value Reference Range Interpretation Comments Red Blood Count (test code = 789-8) 4.42 3.6-5.1 [facility] TexasHemoglobin2018-06-13 22:36:00* Test Item Value Reference Range Interpretation Comments Hemoglobin (test code = 29575-8) 10.6 12.0-16.0 L [facility] TexasHematocrit2018-06-13 22:36:00* Test Item Value Reference Range Interpretation Comments Hematocrit (test code = 4544-3) 34.6 34.2-44.1 [facility] TexasMean Corpuscular Yvsjnn4334-25-13 22:36:00* Test Item Value Reference Range Interpretation Comments Mean Corpuscular Volume (test code = 787-2) 78.3 81-99 L [facility] TexasMean Corpuscular Mvnqkzzeyt0576-10-89 22:36:00* Test Item Value Reference Range Interpretation Comments Mean Corpuscular Hemoglobin (test code = 785-6) 24.0 28-32 L [facility] TexasMean Corpuscular Hemoglobin Concent 2018-02-01 22:36:00* Test Item Value Reference Range Interpretation Comments Mean Corpuscular Hemoglobin Concent (test code = 786-4) 30.6 31-35 L [facility] TexasRed Cell Distribution Fhmfb2064-60-94 22:36:00* Test Item Value Reference Range Interpretation Comments Red Cell Distribution Width (test code = 58252-9) 17.0 11.7 -14.4 H [facility] TexasPlatelet Udlga0712-55-17 22:36:00* Test Item Value Reference Range Interpretation Comments Platelet Count (test code = 777-3) 332 140-360 [facility] TexasNeutrophils (%) (Auto)2018-02-01 22:36:00 * Test Item Value Reference Range Interpretation Comments Neutrophils (%) (Auto) (test code = 65816-5) 72.0 38.7-80.0 [facility] TexasLymphocytes (%) (Auto)2018-02-01 22:36:00 * Test Item Value Reference Range Interpretation Comments Lymphocytes (%) (Auto) (test code = 736-9) 20.8 18.0-39.1 [facility] TexasMonocytes (%) (Auto)2018-02-01 22:36:00* Test Item Value Reference Range Interpretation Comments Monocytes (%) (Auto) (test code = 5905-5) 4.9 4.4-11.3 [facility] TexasEosinophils (%) (Auto)2018-02-01 22:36:00 * Test Item Value Reference Range Interpretation Comments Eosinophils (%) (Auto) (test code = 713-8) 1.8 0.0-6.0 [facility] TexasBasophils (%) (Auto)2018-02-01 22:36:00* Test Item Value Reference Range Interpretation Comments Basophils (%) (Auto) (test code = 706-2) 0.2 0.0-1.0 [facility] TexasIM GRANULOCYTES %2018-02-01 22:36:00* Test Item Value Reference Range Interpretation Comments IM GRANULOCYTES % (test code = IM GRANULOCYTES %) 0.3 0.0- 1.0 [facility] TexasNeutrophils # (Auto)2018-02-01 22:36:00* Test Item Value Reference Range Interpretation Comments Neutrophils # (Auto) (test code = 751-8) 9.7 2.1-6.9 H [facility] TexasLymphocytes # (Auto)2018-02-01 22:36:00* Test Item Value Reference Range Interpretation Comments Lymphocytes # (Auto) (test code = 54394-8) 2.8 1.0-3.2 [facility] TexasMonocytes # (Auto)2018-02-01 22:36:00* Test Item Value Reference Range Interpretation Comments Monocytes # (Auto) (test code = 742-7) 0.7 0.2-0.8 [facility] TexasEosinophils # (Auto)2018-02-01 22:36:00* Test Item Value Reference Range Interpretation Comments Eosinophils # (Auto) (test code = 711-2) 0.3 0.0-0.4 [facility] TexasBasophils # (Auto)2018-02-01 22:36:00* Test Item Value Reference Range Interpretation Comments Basophils # (Auto) (test code = 704-7) 0.0 0.0-0.1 [facility] TexasAbsolute Immature Granulocyte (auto 2018-02-01 22:36:00* Test Item Value Reference Range Interpretation Comments Absolute Immature Granulocyte (auto (mallory t code = Absolute Immature Granulocyte (auto) 0.04 0-0.1 [facility] TexasD-Dimer Quantitative (PE/DVT)2017-12-02 16:27:00* Test Item Value Reference Range Interpretation Comments D-Dimer Quantitative (PE/DVT) (test code = 95666-5) 0.72 0. 00-0.45 H As with all in vitro diagnostic tests, the test results should be interpreted by the physician in conjunction with clinical findings and other test results.Test results are reported in NEW D-dimer units(ug/mLFEU).[facility] TexasD-Dimer Quantitative (PE/DVT)2017-12-02 16:27:00* Test Item Value Reference Range Interpretation Comments D-Dimer Quantitative (PE/DVT) (test code = 58737-2) 0.72 0. 00-0.45 H As with all in vitro diagnostic tests, the test results should be interpreted by the physician in conjunction with clinical findings and other test results.Test results are reported in NEW D-dimer units(ug/mLFEU).[facility] TexasD-Dimer Quantitative (PE/DVT)2017-12-02 16:27:00* Test Item Value Reference Range Interpretation Comments D-Dimer Quantitative (PE/DVT) (test code = 18789-0) 0.72 0. 00-0.45 H As with all in vitro diagnostic tests, the test results should be interpreted by the physician in conjunction with clinical findings and other test results.Test results are reported in NEW D-dimer units(ug/mLFEU).[facility] TexasD-Dimer Quantitative (PE/DVT)2017-12-02 16:27:00* Test Item Value Reference Range Interpretation Comments D-Dimer Quantitative (PE/DVT) (test code = 41964-3) 0.72 0. 00-0.45 H As with all in vitro diagnostic tests, the test results should be interpreted by the physician in conjunction with clinical findings and other test results.Test results are reported in NEW D-dimer units(ug/mLFEU).[facility] TexasD-Dimer Quantitative (PE/DVT)2017-12-02 16:27:00* Test Item Value Reference Range Interpretation Comments D-Dimer Quantitative (PE/DVT) (test code = 87875-4) 0.72 0. 00-0.45 H As with all in vitro diagnostic tests, the test results should be interpreted by the physician in conjunction with clinical findings and other test results.Test results are reported in NEW D-dimer units(ug/mLFEU).[facility] TexasCreatine Kinase MQ6324-60-39 15:38:00* Test Item Value Reference Range Interpretation Comments Creatine Kinase MB (test code = 38803-1) 1.10 0-5.0 [facility] TexasTroponin W3201-84-86 15:38:00* Test Item Value Reference Range Interpretation Comments Troponin I (test code = MNF9517) 0.011 0-0.300 [facility] TexasThyroid Stimulating Hormone (TSH) 2017-12-02 15:38:00* Test Item Value Reference Range Interpretation Comments Thyroid Stimulating Hormone (TSH) (test code = 98454-9) 0.383 0.350-4.940 [facility] TexasThyroid Stimulating Hormone (TSH) 2017-12-02 15:38:00* Test Item Value Reference Range Interpretation Comments Thyroid Stimulating Hormone (TSH) (test code = 92921-5) 0.383 0.350-4.940 [facility] TexasThyroid Stimulating Hormone (TSH) 2017-12-02 15:38:00* Test Item Value Reference Range Interpretation Comments Thyroid Stimulating Hormone (TSH) (test code = 62366-0) 0.383 0.350-4.940 [facility] TexasThyroid Stimulating Hormone (TSH) 2017-12-02 15:38:00* Test Item Value Reference Range Interpretation Comments Thyroid Stimulating Hormone (TSH) (test code = 48952-2) 0.383 0.350-4.940 [facility] TexasThyroid Stimulating Hormone (TSH) 2017-12-02 15:38:00* Test Item Value Reference Range Interpretation Comments Thyroid Stimulating Hormone (TSH) (test code = 97272-3) 0.383 0.350-4.940 [facility] TexasUrine JLM2812-85-49 15:28:00* Test Item Value Reference Range Interpretation Comments Urine WBC (test code = 5821-4) 0-5 0-5 [facility] TexasUrine LHV8364-44-54 15:28:00* Test Item Value Reference Range Interpretation Comments Urine RBC (test code = 85025-0) 6-10 0-5 H [facility] TexasUrine Cthzvpqp6773-66-42 15:28:00* Test Item Value Reference Range Interpretation Comments Urine Bacteria (test code = 33151-7) FEW NONE [facility] TexasUrine Epithelial Rhuzk9305-36-03 15:28:00 * Test Item Value Reference Range Interpretation Comments Urine Epithelial Cells (test code = 90475-0) MODERATE NONE [facility]odium Jklxx8312-98-61 15:15:00* Test Item Value Reference Range Interpretation Comments Sodium Level (test code = 2951-2) 140 136-145 [facility] TexasPotassium Ouizh0389-78-82 15:15:00* Test Item Value Reference Range Interpretation Comments Potassium Level (test code = 2823-3) 3.9 3.5-5.1 [facility] TexasChloride Ahfmz3880-95-11 15:15:00* Test Item Value Reference Range Interpretation Comments Chloride Level (test code = 2075-0) 109 98-107 H [facility] TexasCarbon Dioxide Dreqp4964-16-95 15:15:00* Test Item Value Reference Range Interpretation Comments Carbon Dioxide Level (test code = 2028-9) 24 22-29 [facility] TexasAnion Ajj3254-96-29 15:15:00* Test Item Value Reference Range Interpretation Comments Anion Gap (test code = 31861-6) 10.9 8-16 [facility] TexasBlood Urea Qvbekuye0312-59-36 15:15:00* Test Item Value Reference Range Interpretation Comments Blood Urea Nitrogen (test code = 3094-0) 20 7-26 [facility] TexasCreatinine2018-04-13 15:15:00* Test Item Value Reference Range Interpretation Comments Creatinine (test code = 2160-0) 0.90 0.57-1.11 [facility] TexasBUN/Creatinine Cufyo2330-53-79 15:15:00* Test Item Value Reference Range Interpretation Comments BUN/Creatinine Ratio (test code = 3097-3) 22 6-25 [facility] TexasEstimat Glomerular Filtration Rate 2017-12-02 15:15:00* Test Item Value Reference Range Interpretation Comments Estimat Glomerular Filtration Rate (test code = 96168-6) 60- >60 Ranges were taken from the National Kidney Disease Education Program and the [facility] [employer] literature.Reference ranges:60 or greater: Qcscgz02-39 ( for 3 consecutive months): Chronic kidney disease 15 or less: Kidney failureThe [facility] Center of Southeast TexasGlucose Tbqhi5026-44-55 15:15:00* Test Item Value Reference Range Interpretation Comments Glucose Level (test code = RNW2459) 121 74-118 H [facility] TexasCalcium Gyeod6155-92-51 15:15:00* Test Item Value Reference Range Interpretation Comments Calcium Level (test code = 70827-7) 9.4 8.4-10.2 [facility] TexasTotal Rqfbkjmjj3259-02-38 15:15:00* Test Item Value Reference Range Interpretation Comments Total Bilirubin (test code = 1975-2) 0.2 0.2-1.2 [facility] TexasAspartate Amino Transf (AST/SGOT) 2017-12-02 15:15:00* Test Item Value Reference Range Interpretation Comments Aspartate Amino Transf (AST/SGOT) (test code = Aspartate Amino Transf (AST/SGOT)) 14 5-34 [facility] TexasAlanine Aminotransferase (ALT/SGPT) 2017-12-02 15:15:00* Test Item Value Reference Range Interpretation Comments Alanine Aminotransferase (ALT/SGPT) (test code = 1742-6) 19 0-55 [facility] TexasTotal Yvklalu0332-60-48 15:15:00* Test Item Value Reference Range Interpretation Comments Total Protein (test code = 2885-2) 7.1 6.5-8.1 [facility] TexasAlbumin2018-04-13 15:15:00* Test Item Value Reference Range Interpretation Comments Albumin (test code = 1751-7) 3.4 3.5-5.0 L [facility] TexasGlobulin2018-04-13 15:15:00* Test Item Value Reference Range Interpretation Comments Globulin (test code = 00587-9) 3.7 2.3-3.5 H [facility] TexasAlbumin/Globulin Cvvko3016-78-39 15:15:00 * Test Item Value Reference Range Interpretation Comments Albumin/Globulin Ratio (test code = 1759-0) 0.9 0.8-2.0 [facility] TexasAlkaline Fuafyehpiuk2896-42-75 15:15:00* Test Item Value Reference Range Interpretation Comments Alkaline Phosphatase (test code = 6768-6) 111 40-150 [facility] TexasCreatine Xlfpkp9605-17-66 15:15:00* Test Item Value Reference Range Interpretation Comments Creatine Kinase (test code = 2157-6) 64 29-168 [facility] TexasUrine Thrzi0951-43-32 15:14:00* Test Item Value Reference Range Interpretation Comments Urine Color (test code = 5778-6) YELLOW YELLOW [facility] TexasUrine Awnomrn6133-00-24 15:14:00* Test Item Value Reference Range Interpretation Comments Urine Clarity (test code = 95628-2) CLEAR CLEAR [facility] TexasUrine Specific Kwiimqb3637-63-24 15:14:00 * Test Item Value Reference Range Interpretation Comments Urine Specific Rush (test code = 5811-5) 1.025 1.010-1.02 5 [facility] TexasUrine dP1535-42-54 15:14:00* Test Item Value Reference Range Interpretation Comments Urine pH (test code = 69054-6) 6 5-7 [facility] TexasUrine Leukocyte Qnqrciwd9671-10-06 15:14:00* Test Item Value Reference Range Interpretation Comments Urine Leukocyte Esterase (test code = 5799-2) NEGATIVE NEGATIVE [facility] TexasUrine Rrsoimz9038-08-59 15:14:00* Test Item Value Reference Range Interpretation Comments Urine Nitrite (test code = 15076-4) NEGATIVE NEGATIVE [facility] TexasUrine Dwqrocs9182-18-91 15:14:00* Test Item Value Reference Range Interpretation Comments Urine Protein (test code = 5804-0) NEGATIVE NEGATIVE [facility] TexasUrine Glucose (UA)2017-12-02 15:14:00* Test Item Value Reference Range Interpretation Comments Urine Glucose (UA) (test code = 2349-9) NEGATIVE NEGATIVE [facility] TexasUrine Hgirizu5550-82-98 15:14:00* Test Item Value Reference Range Interpretation Comments Urine Ketones (test code = 66659-3) NEGATIVE NEGATIVE [facility] TexasUrine Esmdpxneirqq6828-16-32 15:14:00* Test Item Value Reference Range Interpretation Comments Urine Urobilinogen (test code = 81178-2) 0.2 0.2-1 [facility] TexasUrine Qrtuscgre2591-87-81 15:14:00* Test Item Value Reference Range Interpretation Comments Urine Bilirubin (test code = 1978-6) NEGATIVE NEGATIVE [facility] TexasUrine Ybepu8181-34-92 15:14:00* Test Item Value Reference Range Interpretation Comments Urine Blood (test code = 93757-5) TRACE NEGATIVE H [facility] TexasActivated Partial Thromboplast Time 2017-12-02 15:09:00* Test Item Value Reference Range Interpretation Comments Activated Partial Thromboplast Time (test code = 52533-6) 32.7 23.8-35.5 [facility] TexasProthrombin Rjlv8480-88-12 15:08:00* Test Item Value Reference Range Interpretation Comments Prothrombin Time (test code = 5902-2) 12.7 11.9-14.5 [facility] TexasProthromb Time International Ratio 2017-12-02 15:08:00* Test Item Value Reference Range Interpretation Comments Prothromb Time International Ratio (test code = 6301-6) 1.03 Oral Anticoagulant Therapy INR Values:1. Low Intensity Therapy 1.5 - 2.02 . Moderate Intensity Therapy 2.0 - 3.03. High Intensity Therapy(1) 2.5 - 3. 54. High Intensity Therapy(2) 3.0 - 4.05. Panic Value INR > 5.0 [facility] TexasWhite Blood Jpiqt8198-83-91 14:58:00* Test Item Value Reference Range Interpretation Comments White Blood Count (test code = 6690-2) 10.63 4.8-10.8 [facility] TexasRed Blood Gyqij9148-84-36 14:58:00* Test Item Value Reference Range Interpretation Comments Red Blood Count (test code = 789-8) 3.45 3.6-5.1 L [facility] TexasHemoglobin2018-04-13 14:58:00* Test Item Value Reference Range Interpretation Comments Hemoglobin (test code = 93445-4) 8.6 12.0-16.0 L [facility] TexasHematocrit2018-04-13 14:58:00* Test Item Value Reference Range Interpretation Comments Hematocrit (test code = 4544-3) 27.7 34.2-44.1 L [facility] TexasMean Corpuscular Ljtqzu2981-58-42 14:58:00* Test Item Value Reference Range Interpretation Comments Mean Corpuscular Volume (test code = 787-2) 80.3 81-99 L [facility] TexasMean Corpuscular Nejprkfvnn0757-28-53 14:58:00* Test Item Value Reference Range Interpretation Comments Mean Corpuscular Hemoglobin (test code = 785-6) 24.9 28-32 L [facility] TexasMean Corpuscular Hemoglobin Concent 2017-12-02 14:58:00* Test Item Value Reference Range Interpretation Comments Mean Corpuscular Hemoglobin Concent (test code = 786-4) 31.0 31-35 [facility] TexasRed Cell Distribution Rywfc8953-91-92 14:58:00* Test Item Value Reference Range Interpretation Comments Red Cell Distribution Width (test code = 36536-0) 15.7 11.7 -14.4 [facility] TexasPlatelet Wbywg2026-45-69 14:58:00* Test Item Value Reference Range Interpretation Comments Platelet Count (test code = 777-3) 408 140-360 H [facility] TexasNeutrophils (%) (Auto)2017-12-02 14:58:00 * Test Item Value Reference Range Interpretation Comments Neutrophils (%) (Auto) (test code = 24238-5) 66.6 38.7-80.0 [facility]Lymphocytes (%) (Auto)2017-12-02 14:58:00 * Test Item Value Reference Range Interpretation Comments Lymphocytes (%) (Auto) (test code = 736-9) 25.6 18.0-39.1 [facility]Monocytes (%) (Auto)2017-12-02 14:58:00* Test Item Value Reference Range Interpretation Comments Monocytes (%) (Auto) (test code = 5905-5) 5.3 4.4-11.3 [facility]Eosinophils (%) (Auto)2017-12-02 14:58:00 * Test Item Value Reference Range Interpretation Comments Eosinophils (%) (Auto) (test code = 713-8) 1.8 0.0-6.0 [facility]ophils (%) (Auto)2017-12-02 14:58:00* Test Item Value Reference Range Interpretation Comments Basophils (%) (Auto) (test code = 706-2) 0.3 0.0-1.0 [facility] TexasIM GRANULOCYTES %2017-12-02 14:58:00* Test Item Value Reference Range Interpretation Comments IM GRANULOCYTES % (test code = IM GRANULOCYTES %) 0.4 0.0- 1.0 [facility] TexasNeutrophils # (Auto)2017-12-02 14:58:00* Test Item Value Reference Range Interpretation Comments Neutrophils # (Auto) (test code = 751-8) 7.1 2.1-6.9 H [facility] TexasLymphocytes # (Auto)2017-12-02 14:58:00* Test Item Value Reference Range Interpretation Comments Lymphocytes # (Auto) (test code = 55224-9) 2.7 1.0-3.2 [facility]Monocytes # (Auto)2017-12-02 14:58:00* Test Item Value Reference Range Interpretation Comments Monocytes # (Auto) (test code = 742-7) 0.6 0.2-0.8 [facility] [place]Eosinophils # (Auto)2017-12-02 14:58:00* Test Item Value Reference Range Interpretation Comments Eosinophils # (Auto) (test code = 711-2) 0.2 0.0-0.4 [facility] [place]Basophils # (Auto)2017-12-02 14:58:00* Test Item Value Reference Range Interpretation Comments Basophils # (Auto) (test code = 704-7) 0.0 0.0-0.1 [facility] TexasAbsolute Immature Granulocyte (auto 2017-12-02 14:58:00* Test Item Value Reference Range Interpretation Comments Absolute Immature Granulocyte (auto (mallory t code = Absolute Immature Granulocyte (auto) 0.04 0-0.1 [facility] Scgmdpe1102-36-30 20:16:00* Test Item Value Reference Range Interpretation Comments Bedside Glucose (test code = 56102-0) 262 70-120 H Meter ID: [id number] [facility] Glucose 2017-08-10 20:16:00* Test Item Value Reference Range Interpretation Comments Bedside Glucose (test code = 93034-9) 262 70-120 H Meter ID: [id number] [facility] Glucose 2017-08-10 20:16:00* Test Item Value Reference Range Interpretation Comments Bedside Glucose (test code = 23458-9) 262 70-120 H Meter ID: [id number] [facility] Glucose 2017-08-10 20:16:00* Test Item Value Reference Range Interpretation Comments Bedside Glucose (test code = 26496-6) 262 70-120 H Meter ID: [id number] Christi Medical Center NorthwestCT CHEST W [facility] [address] [address] Patient Name: ROSITA MCGHEE MR #: [id number] : 1960 Age/Sex: 57/F Req #: [id number] Adm Physician: Ordered by: DOROTHEA CHRISTIANSON WELDING TEACHER Report #: [id number] Location: ER Ro om/Bed: Procedure: 2530-2889 CT/CT CHEST W Exam Date : 12/02/17 [...] JASWANT on 1911 COPY TO: DOROTHEA CHRISTIANSON NP CHEST SINGLE (PORTABLE) [place] [address] Patient Name: ROSITA MCGHEE MR #: [id number] : 1960 Age/Sex: 57/F Req #: [id number] Adm Physician: Ordered by: DOROTHEA CHRISTIANSON WELDING TEACHER Report #: [id number] Location: ER Room/Bed: Procedure: 7601-2689 DX/CHEST SINGLE (GERMAN BLE) Exam Date: 12/02/17 [...] GUADALUPE MD 40 COPY TO: TEJAS CHRISTIANSON NP CT SOFT TISSUE NECK WO [facility] [address] [address] Patient Name: ROSITA MCGHEE MR #: [id number] : 1960 Age/Sex: 56/F Req #: [id number] Adm Physician: CRYSTAL CORBIN MD Ordered by: ANTONIO SHERMAN MD Report #: [id number] Location: MED/SURG2 Room/Bed: [facility] Procedure : [id number] CT/CT SOFT TISSUE NECK WO Exam Date: [...] TO: ANTONIO SHERMAN MD CT CHEST WO [place] [address] Patient Name: ROSITA MCGHEE MR #: [id number] : 1960 Age/Sex: 56/F Req #: [id number] Adm Physician: CRYSTAL CORBIN MD Ordered by: ANTONIO SHERMAN MD Report #: [id number] Location: MED/SURG Room/Bed: [facility] Procedure : [id number] CT/CT CHEST WO Exam Date: 08/08/17 Exam [...] ANTONIO SHERMAN MD CHEST SINGLE (NOT PORTABLE) [place] [address] Patient Name: ROSITA MCGHEE MR #: [id number] : 1960 Age/Sex: 56/F Req #: [id number] Adm Physician: CRYSTAL CORBIN MD Ordered by: FELICITAS CUTLER MD Report #: [id number] Location: MED/SURG Room/Bed: [facility] Procedure: 1218-0 070 DX/CHEST SINGLE (NOT PORTABLE) Exam Date: 08/08/17 Exam Time: 1845 REPORT STATUS: Signed EXAMINATION: CHEST SINGLE (NO T PORTABLE) 08/08/2017 6:28 PM COMPARISON: None INDICATION: Foreig n body stuck in throat DISCUSSION: LINES: None. [...] TO: FELICITAS CUTLER MD NECK SOFT TISSUE [place] [address] Patient Name: ROSITA MCGHEE MR #: [id number] : 1960 Age/Sex: 56/F Req #: [id number] Adm Physician: CRYSTAL CORBIN MD Ordered by: FELICITAS CUTLER MD Report #: [id number] Location: MED/SURG2 Room/Bed: [facility] Procedure: 1218-0 071 DX/NECK SOFT TISSUE Exam [...]
[2020-05-29 15:12] LABS: BASOPHILS # (AUTO) 0.1 (0.0-0.1); BASOPHILS % 0.5 % (0.0-1.0); EOSINOPHILS # (AUTO) 0.4 (0.0-0.4); EOSINOPHILS % 4.1 % (0.0-6.0); HEMATOCRIT 35.8 % (34.2-44.1); LYMPHOCYTES # (AUTO) 2.4 (1.0-3.2); LYMPHOCYTES % 24.7 % (18.0-39.1); MEAN CORPUSCULAR HEMOGLOBIN 24.9 pg (28-32); MEAN CORPUSCULAR HGB CONC 30.7 g/dL (31-35); MONOCYTES # (AUTO) 0.6 (0.2-0.8); MONOCYTES % 6.1 % (4.4-11.3); NEUTROPHILS # (AUTO) 6.1 (2.1-6.9); NEUTROPHILS % 64.3 % (38.7-80.0); PLATELET COUNT 370 x10e3/uL (140-360); RED BLOOD COUNT 4.42 x10e6/uL (3.6-5.1); RED CELL DISTRIBUTION WIDTH 14.9 % (11.7-14.4)
[2020-05-29 15:33] LABS: ALANINE AMINOTRANSFERASE 39 IU/L (0-55); ALBUMIN 4.1 g/dL (3.5-5.0); ALKALINE PHOSPHATASE 124 IU/L (40-150); ANION GAP 16.1 mmol/L (8-16); BLOOD UREA NITROGEN 27 mg/dL (7-26); BUN/CREATININE RATIO 31 (6-25); CALCIUM 9.8 mg/dL (8.4-10.2); CARBON DIOXIDE 20 mmol/L (22-29); CHLORIDE 107 mmol/L (98-107); CREATININE, SERUM 0.88 mg/dL (0.57-1.11); EST GLOMERULAR FILTRATION RATE > 60 ML/MIN (60-); GLUCOSE 128 mg/dL (74-118); POTASSIUM 4.1 mmol/L (3.5-5.1); SODIUM 139 mmol/L (136-145)
--- NOTE | 2020-05-29 15:44 | Diagnostic Imaging Report ---
TECHNIQUE: Frontal view of the chest. INDICATION: ^Y ^CP ^[id number] ^1520 COMPARISON: 02/01/2018 DISCUSSION: Limited evaluation due to portable technique. Lines and hardware: Overlying EKG leads are noted. Heart and mediastinum: Stable. Lungs and pleura: No focal airspace consolidation. No pleural effusion. No pneumothorax. Soft tissues and bones: No acute abnormality. Surgical clips are again identified in the left upper quadrant. IMPRESSION: Stable exam without acute intrathoracic process. Signed by: Nba Navarro MD on 05/29/2020 3:41 PM
== END 2020-05-29 16:27 | disposition home or self-care (01) ==
LOC: ER 14:33
DX: R07.9 Chest pain, unspecified (principal); E11.65 Type 2 diabetes mellitus with hyperglycemia; I10 Essential (primary) hypertension; E78.5 Hyperlipidemia, unspecified; K21.9 Gastro-esophageal reflux disease without esophagitis; F41.9 Anxiety disorder, unspecified; M06.9 Rheumatoid arthritis, unspecified
CPT/HCPCS: 36415; 71045; 80053; 83690; 84484; 85025; 93005; 99284

== ENCOUNTER 2020-08-23 11:11 | Emergency (ER) | payer OTHER ==
[~2020-08-23] VITALS: Ht 149.9 cm; Wt 82.6 kg
[2020-08-23] MEDS ORDERED: HYDROCODONE/APAP 10MG-325MG TAB PO ONE (11:30)
[2020-08-23] MEDS ORDERED: ULTRAM50 MG PO (13:31)
== END 2020-08-23 14:01 | disposition home or self-care (01) ==
LOC: ER 11:14
DX: S93.401A Sprain of unspecified ligament of right ankle, initial encounter (principal); M79.671 Pain in right foot; M25.561 Pain in right knee; W10.8XXA Fall (on) (from) other stairs and steps, initial encounter; Y93.01 Activity, walking, marching and hiking; Y92.008 Other place in unspecified non-institutional (private) residence as the place of occurrence of the external cause; I10 Essential (primary) hypertension; E11.9 Type 2 diabetes mellitus without complications; E78.5 Hyperlipidemia, unspecified; F41.9 Anxiety disorder, unspecified; J45.909 Unspecified asthma, uncomplicated; K21.9 Gastro-esophageal reflux disease without esophagitis
CPT/HCPCS: 99283

== ENCOUNTER 2020-10-22 17:41 | Emergency (ER) | payer OTHER ==
[~2020-10-22] VITALS: Ht 149.9 cm; Wt 82.6 kg
[2020-10-22 18:30] LABS: BASOPHILS % 0.2 % (0.0-1.0); EOSINOPHILS # (AUTO) 0.2 (0.0-0.4); EOSINOPHILS % 1.3 % (0.0-6.0); HEMATOCRIT 35.9 % (34.2-44.1); HEMOGLOBIN 10.8 g/dL (12.0-16.0); LYMPHOCYTES # (AUTO) 1.4 (1.0-3.2); LYMPHOCYTES % 12.3 % (18.0-39.1); MEAN CORPUSCULAR HEMOGLOBIN 24.1 pg (28-32); MEAN CORPUSCULAR HGB CONC 30.1 g/dL (31-35); MEAN CORPUSCULAR VOLUME 80.1 fL (81-99); MONOCYTES # (AUTO) 0.7 (0.2-0.8); MONOCYTES % 6.2 % (4.4-11.3); NEUTROPHILS % 79.3 % (38.7-80.0); PLATELET COUNT 360 x10e3/uL (140-360); RED BLOOD COUNT 4.48 x10e6/uL (3.6-5.1); RED CELL DISTRIBUTION WIDTH 15.2 % (11.7-14.4)
[2020-10-22 18:45] LABS: ALANINE AMINOTRANSFERASE 29 IU/L (0-55); ALBUMIN 3.2 g/dL (3.5-5.0); ALBUMIN/GLOBULIN RATIO 0.6 (0.8-2.0); ALKALINE PHOSPHATASE 111 IU/L (40-150); ANION GAP 16.8 mmol/L (8-16); BLOOD UREA NITROGEN 21 mg/dL (7-26); BUN/CREATININE RATIO 27 (6-25); CALCIUM 9.5 mg/dL (8.4-10.2); CARBON DIOXIDE 22 mmol/L (22-29); CHLORIDE 101 mmol/L (98-107); CREATINE KINASE 69 IU/L (29-168); CREATININE, SERUM 0.78 mg/dL (0.57-1.11); EST GLOMERULAR FILTRATION RATE > 60 ML/MIN (60-); GLUCOSE 266 mg/dL (74-118); POTASSIUM 4.8 mmol/L (3.5-5.1); SODIUM 135 mmol/L (136-145)
[2020-10-22] MEDS ORDERED: DECADRON4 M1 PO (19:36)
== END 2020-10-22 19:51 | disposition home or self-care (01) ==
LOC: ER 17:52
DX: U07.1 COVID-19 (principal); R50.9 Fever, unspecified; R05 Cough; R53.81 Other malaise; I10 Essential (primary) hypertension; E11.65 Type 2 diabetes mellitus with hyperglycemia; E78.5 Hyperlipidemia, unspecified; M06.9 Rheumatoid arthritis, unspecified; F41.9 Anxiety disorder, unspecified; D64.9 Anemia, unspecified
CPT/HCPCS: 36415; 71045; 80053; 82550; 82553; 84484; 85025; 93005; 99284; U0002

== ENCOUNTER 2021-08-18 09:49 | Emergency (ER) | payer OTHER ==
[~2021-08-18] VITALS: Ht 149.9 cm; Wt 87.1 kg
[~2021-08-18 09:49] MED LIST changes: +DECADRON4 M1 PO
[2021-08-18] MEDS ORDERED: AZITHROMYCIN250 MG PO (10:41)
[2021-08-18] MEDS ORDERED: VENTOLIN HFA18 GM INH (10:41)
[2021-08-18] MEDS ORDERED: PREDNISONE20 MG PO ×2 (10:41→11:03)
== END 2021-08-18 11:16 | disposition home or self-care (01) ==
LOC: FSED 10:01
DX: U07.1 COVID-19 (principal); J12.82 Pneumonia due to coronavirus disease 2019; I10 Essential (primary) hypertension; E11.9 Type 2 diabetes mellitus without complications; K21.9 Gastro-esophageal reflux disease without esophagitis; J45.909 Unspecified asthma, uncomplicated; F41.9 Anxiety disorder, unspecified; F32.A Depression, unspecified; Z88.0 Allergy status to penicillin; Z88.8 Allergy status to other drugs, medicaments and biological substances; Z88.6 Allergy status to analgesic agent; Z88.1 Allergy status to other antibiotic agents; Z91.041 Radiographic dye allergy status; Z79.4 Long term (current) use of insulin; Z79.82 Long term (current) use of aspirin; Z79.899 Other long term (current) drug therapy; Z87.442 Personal history of urinary calculi; Z87.440 Personal history of urinary (tract) infections; Z86.2 Personal history of diseases of the blood and blood-forming organs and certain disorders involving the immune mechanism
CPT/HCPCS: 71046; 99283

== ENCOUNTER 2021-10-13 12:40 | Emergency (ER) | payer OTHER ==
[~2021-10-13] VITALS: Ht 149.9 cm; Wt 88.1 kg
[~2021-10-13 12:40] MED LIST changes: +AZITHROMYCIN250 MG PO; +PREDNISONE20 MG PO; +VENTOLIN HFA18 GM INH
[2021-10-13] MEDS ORDERED: RIZATRIPTAN10 M1 (12:56)
[2021-10-13] MEDS ORDERED: CARVEDILOL12.5 MG PO (12:56)
[2021-10-13] MEDS ORDERED: CLEOCIN HCL300 MG PO (13:01)
[2021-10-13] MEDS ORDERED: BACTRIM DS TAB1 EACH PO (13:01)
== END 2021-10-13 13:08 | disposition home or self-care (01) ==
LOC: FSED 12:59
DX: L03.311 Cellulitis of abdominal wall (principal); I10 Essential (primary) hypertension; E11.9 Type 2 diabetes mellitus without complications; M06.9 Rheumatoid arthritis, unspecified; E78.5 Hyperlipidemia, unspecified; K21.9 Gastro-esophageal reflux disease without esophagitis; F41.9 Anxiety disorder, unspecified
CPT/HCPCS: 99282

== ENCOUNTER 2024-07-09 20:14 | Emergency (ER) | payer MEDICAID ==
[~2024-07-09] VITALS: Ht 149.9 cm; Wt 83.5 kg
[~2024-07-09 20:14] MED LIST changes: +BACTRIM DS TAB1 EACH PO; +CARVEDILOL12.5 MG PO; +CLEOCIN HCL300 MG PO; +HUMALOG100 UNIT/1; +RIZATRIPTAN10 M1
[2024-07-09] MEDS ORDERED: ONDANSETRON HCL INJ 2MG/ML 2ML 2 MG/ML VIAL ONE (20:29)
[2024-07-09 20:33] LABS: BASOPHILS # (AUTO) 0.1 (0.0-0.1); BASOPHILS % 0.4 % (0.0-1.0); EOSINOPHILS # (AUTO) 0.2 (0.0-0.4); EOSINOPHILS % 1.7 % (0.0-6.0); HEMATOCRIT 37.7 % (34.2-44.1); HEMOGLOBIN 11.3 g/dL (12.0-16.0); LYMPHOCYTES # (AUTO) 2.8 (1.0-3.2); LYMPHOCYTES % 20.2 % (18.0-39.1); MEAN CORPUSCULAR HEMOGLOBIN 25.6 pg (28-32); MEAN CORPUSCULAR VOLUME 85.3 fL (81-99); MONOCYTES # (AUTO) 0.7 (0.2-0.8); MONOCYTES % 5.1 % (4.4-11.3); NEUTROPHILS # (AUTO) 10.1 (2.1-6.9); NEUTROPHILS % 72.1 % (38.7-80.0); PLATELET COUNT 414 x10e3/uL (140-360); RED BLOOD COUNT 4.42 x10e6/uL (3.6-5.1); RED CELL DISTRIBUTION WIDTH 14.1 % (11.7-14.4); WHITE BLOOD COUNT 14.02 x10e3/uL (4.8-10.8)
[2024-07-09] MEDS: ONDANSETRON HCL INJ 2MG/ML 2ML 2 MG/ML VIAL IV STA (20:33)
[2024-07-09 20:51] LABS: ALBUMIN 3.8 g/dL (3.5-5.0); BILIRUBIN,TOTAL 0.3 mg/dL (0.2-1.2); CALCIUM 10.2 mg/dL (8.4-10.2); CREATININE, SERUM 0.92 mg/dL (0.57-1.11); TOTAL PROTEIN 7.6 g/dL (6.5-8.1)
[2024-07-09 20:59] LABS: TROPONIN I 0.004 ng/mL (0-0.300)
[2024-07-09 22:50] VITALS: TEMP 98.6
[2024-07-10 01:00] VITALS: PULSE 77; RESP 16
[2024-07-10 01:55] VITALS: BP 127/75; PULSE 78; RESP 19; TEMP 98.3; O2SAT 98
== END 2024-07-10 01:55 | disposition other institution (70) ==
LOC: ER 20:20
DX: R10.11 Right upper quadrant pain (principal); T18.128A Food in esophagus causing other injury, initial encounter; R11.2 Nausea with vomiting, unspecified; K57.90 Diverticulosis of intestine, part unspecified, without perforation or abscess without bleeding; R94.31 Abnormal electrocardiogram [ECG] [EKG]
CPT/HCPCS: 36415; 74176; 80053; 83690; 84484; 85025; 93005; 99284; J2405; J2470